=== PATIENT | female | born 1945 | race Caucasian/White ===

== ENCOUNTER → 2016-06-17 | Outpatient (CLI) | payer OTHER ==
[~2016-06-17] MED LIST: ACET-1256 PO; ASPI-435 PEG; CALC1TAB9 PO; CEFU1TAB36 PO; CHOL100010 PO; CIPR-255 PO; DEXTSYP41 PO; GLC/500 PO; HYDR25TA5 PO; LCTX PO; LISI40TA PO; LPR50X PO; LPT/40 PO; METF-384 PO; POTA10CA28 PO; POTA20TA16 PO; PRLSR20 PO; SALI0.6510 NAE; TOLT2CAP PO
== END | disposition home or self-care (01) ==
LOC: C.LABSPEC 11:00
PROVIDERS: ATTEND Urology
DX: N20.0 Calculus of kidney (principal); N39.0 Urinary tract infection, site not specified

== ENCOUNTER → 2016-06-18 | Outpatient (CLI) | payer OTHER ==
--- NOTE | 2016-06-18 10:28 | DIAGNOSTIC IMAGING REPORT ---
KUB CLINICAL HISTORY: Nephrolithiasis. COMPARISON STUDY: None. FINDINGS: There is a healed fracture of the right inferior pubic ramus. No ureteral calculi are identified. Pelvic calcifications likely reflect vascular calcifications and phleboliths. There are 2 adjacent calculi within the right kidney, the largest measures 1.7 cm. This could reflect one large calculus. No left renal calculi are identified. IMPRESSION: Right-sided nephrolithiasis, as described above. No ureteral calculi. Electronically signed by: Abundio Olivo M.D. 06/18/2016 10:27 AM Dictated Date/Time: 06/18/2016 10:24 AM
== END | disposition home or self-care (01) ==
LOC: C.RAD1850 09:56
PROVIDERS: ATTEND Urology
DX: N20.0 Calculus of kidney (principal); N39.0 Urinary tract infection, site not specified

== ENCOUNTER → 2016-06-30 | Outpatient (CLI) | payer OTHER | END | disposition home or self-care (01) | LOC: C.LABSPEC 11:13 | PROVIDERS: ATTEND Urology | DX: N39.0 Urinary tract infection, site not specified (principal) ==

== ENCOUNTER 2016-09-23 19:11 | Inpatient (IN) | payer OTHER ==
[~2016-09-23] VITALS: Ht 160 cm; Wt 83.0 kg
[~2016-09-23 19:11] MED LIST changes: -ACET-1256 PO; -CALC1TAB9 PO; -CEFU1TAB36 PO; -CIPR-255 PO; -LCTX PO; -METF-384 PO; -POTA20TA16 PO
[2016-09-23] MEDS ORDERED: SODIUM CHLORIDE 0.9% 1000ML 1,000 ML IV STA (19:26)
[2016-09-23] MEDS ORDERED: ONDANSETRON INJ 2 MG/ML 2 ML VIAL IV STA (19:26)
[2016-09-23] MEDS ORDERED: MoRPHine SULFATE 4 MG/ML 1 ML CARP\\VIAL IV PRN (19:30)
--- NOTE | 2016-09-23 19:35 | EMERGENCY ROOM VISIT NOTE ---
History Report prepared by Alexy: Rohit Granados Under the Supervision of: José Luis TaylorO. First contact with patient: 19:23 Chief Complaint: ABDOMINAL PAIN Stated Complaint: VOMITTING, PAIN IN RIGHT SIDE History of Present Illness The patient is a 71 year old female who presents to the Emergency Room with complaints of persistent right-sided abdominal pain that started around 1100 this morning. Per the patient's son, the patient started getting symptoms after eating breakfast at the [employer]. The patient has been having episodes of vomiting and diarrhea, in addition to the sharp right-sided abdominal pain. She says that she has had 3 episodes of diarrhea. The patient is scheduled to have surgery for kidney stones soon at [facility], and she is not sure if her current symptoms are related to the kidney stones. The patient denies any urinary symptoms, chest pain, or shortness of breath. She notes that she has never had abdominal pain like this during her kidney stones episodes. She has not taken anything for the pain today. The patient has a history of a cholecystectomy, appendectomy, and hysterectomy. She does have a history of cancer. The patient takes Aspirin daily. She is a non-smoker and she does not drink alcohol. The patient is diabetic and her sugars have been fine recently. She says that she tried to take Emetrol but vomited it immediately. Source of History: patient, family Onset: 1100 this morning Position: abdomen (right sided) Quality: sharp Timing: other (persistent) Associated Symptoms: + nausea, + vomiting, + diarrhea, No chest pain, No SOB , No urinary symptoms Note: No other associated symptoms noted. Review of Systems See HPI for pertinent positives & negatives. A total of 10 systems reviewed and were otherwise negative. Past Medical & Surgical Medical Problems: (1) Esophageal Reflux (2) Hyperlipidemia Nec/Nos (3) Hypertension Nos (4) Osteoporosis Nos Family History Cancer Heart disease Hypertension Social History Smoking Status: Never Smoker Marital Status: single Housing Status: lives with family Occupation Status: retired Current/Historical Medications Scheduled Acetaminophen (Tylenol), 500 MG PO DAILY Aspirin (Aspirin 81), 81 MG PEG DAILY Atorvastatin (Lipitor), 40 MG PO DAILY Calcium Citrate-Vitamin D (Citracal + D3 Maximum), 1 TAB PO DAILY Hydrochlorothiazide (Hydrochlorothiazide), 25 MG PO DAILY Lisinopril (Prinivil), 40 MG PO DAILY Metformin Hcl (Glucophage), 1,000 MG PO BID Metoprolol Tartrate (Metoprolol Tartrate), 50 MG PO BID Omeprazole (Prilosec), 20 MG PO BID Potassium Ext Rel (Klor-Con), 20 MEQ PO BID Allergies Coded Allergies: Cortisone (Verified Allergy, Intermediate, HEART PALPITATIONS & RASH, 06/25) Corticosteroids (Verified Allergy, Unknown, 06/25/14) Sulfa Drugs (Verified Allergy, Unknown, 06/25/14) Physical Exam Vital Signs Date Time Temp Pulse Resp B/P (MAP) Pulse Ox O2 Delivery O2 Flow Rate FiO2 09/23/16 21:39 36.8 69 17 168/81 95 Room Air 09/23/16 21:09 93 09/23/16 20:53 80 13 154/85 97 Room Air 09/23/16 19:15 36.7 61 24 153/74 94 Room Air Physical Exam GENERAL: Patient is awake, alert, very anxious and uncomfortable appearing. EYES: The conjunctivae are clear. The pupils are round and reactive. EARS, NOSE, MOUTH AND THROAT: The nose is without any evidence of any deformity. Mucous membranes are dry tongue is midline NECK: The neck is nontender and supple. RESPIRATORY: Normal respiratory effort is noted there is no evidence of wheezing rhonchi or rales CARDIOVASCULAR: Regular rate and rhythm noted there no murmurs rubs or gallops normal S1 normal S2 GASTROINTESTINAL: The abdomen moderately distended with right upper quadrant tenderness to palpation with mild guarding in the right upper quadrant. BACK: Significant right CVA tenderness to percussion, no midline tenderness, range of motion appeared intact. MUSCULOSKELETAL/EXTREMITIES: There is no evidence of gross deformity full range of motion is noted in the hips and shoulders SKIN: There is no obvious evidence of any rash. There are no petechiae, pallor or cyanosis noted. NEUROLOGIC: Patient is awake alert and oriented x3. Medical Decision & Procedures ER Provider Diagnostic Interpretation: Radiology results as stated below per my review and radiologist interpretation: CHEST ONE VIEW PORTABLE CLINICAL HISTORY: ABDOMINAL PAIN/GI pain COMPARISON STUDY: 05/25/2016 FINDINGS: The bones soft tissues and hemidiaphragms are normal. The cardiomediastinal silhouette is normal. The lungs are clear. The pulmonary vasculature is normal. IMPRESSION: Negative chest. Electronically signed by: Julián Hyman M.D. 09/23/2016 8:42 PM Dictated Date/Time: 09/23/2016 8:42 PM ABDOMEN AND PELVIS CT WITHOUT CONTRAST CT DOSE: 756.77 mGy.cm HISTORY: Flank pain right flank pain TECHNIQUE: Multiaxial CT images of the abdomen and pelvis were performed without contrast. COMPARISON STUDY: None. FINDINGS: Minimal basilar dependent atelectasis. Bilateral breast implants showing capsular scarring and contraction. Liver spleen and pancreas are unremarkable. Left kidney is negative for hydronephrosis. There is a 1.5 mm nonobstructing calcification at its mid pole. Right kidney shows evidence for hydronephrosis. There are multiple nonobstructing renal calcifications. There is an obstructing calculus measuring 4 mm at the right ureteral pelvic junction. Moderate infiltrative change of the right renal perinephric fat is present. Bowel pattern overall is considered nonobstructive. The appendix appears unremarkable. Bladder is midline. There are no contained calcifications. IMPRESSION: 1. 4 mm obstructing calculus right ureteropelvic junction. 2. significant right-sided hydronephrosis with multiple additional nonobstructing right renal calcifications. 3. Moderate infiltrative change of the right renal perinephric fat. 4. Study otherwise is negative. Electronically signed by: Julián Hyman M.D. 09/23/2016 8:39 PM Dictated Date/Time: 09/23/2016 8:37 PM Laboratory Results Test 09/23/16 19:35 Immature Granulocyte % (Auto) 0.2 % White Blood Count 12.33 K/uL (4.8-10.8) Red Blood Count 5.31 M/uL (4.2-5.4) Hemoglobin 15.1 g/dL (12.0-16.0) Hematocrit 44.8 % (37-47) Mean Corpuscular Volume 84.4 fL (80-100) Mean Corpuscular Hemoglobin 28.4 pg (25-34) Mean Corpuscular Hemoglobin Concent 33.7 g/dl (32-36) Platelet Count 216 K/uL (130-400) Mean Platelet Volume 9.9 fL (7.4-10.4) Neutrophils (%) (Auto) 86.2 % Lymphocytes (%) (Auto) 8.4 % Monocytes (%) (Auto) 4.9 % Eosinophils (%) (Auto) 0.1 % Basophils (%) (Auto) 0.2 % Neutrophils # (Auto) 10.61 K/uL (1.4-6.5) Lymphocytes # (Auto) 1.04 K/uL (1.2-3.4) Monocytes # (Auto) 0.61 K/uL (0.11-0.59) Eosinophils # (Auto) 0.01 K/uL (0-0.5) Basophils # (Auto) 0.03 K/uL (0-0.2) Immature Granulocyte # (Auto) 0.03 K/uL (0.00-0.02) Prothrombin Time 10.8 SECONDS (9.0-12.0) Prothromb Time International Ratio 1.0 (0.9-1.1) Activated Partial Thromboplast Time 24.2 SECONDS (21.0-31.0) Partial Thromboplastin Ratio 0.9 Total Bilirubin 1.0 mg/dl (0.2-1) Direct Bilirubin 0.2 mg/dl (0-0.2) Aspartate Amino Transf (AST/SGOT) 19 U/L (15-37) Alanine Aminotransferase (ALT/SGPT) 23 U/L (12-78) Alkaline Phosphatase 105 U/L (45-117) Total Creatine Kinase 52 U/L (26-192) Creatine Kinase MB 0.9 ng/ml (0.5-3.6) Creatine Kinase MB Ratio 1.7 (0-3.0) Troponin I < 0.015 ng/ml (0-0.045) Total Protein 7.6 gm/dl (6.4-8.2) Albumin 3.9 gm/dl (3.4-5.0) Amylase Level 49 U/L (25-115) Lipase 132 U/L (73-393) Laboratory results per my review. Medications Administered Medications (Trade) Dose Ordered Sig/Mandy Route Start Time Stop Time Status Last Admin Dose Admin Sodium Chloride 1,000 ml @ 999 mls/hr Q1H1M STAT IV 09/23/16 19:26 09/23/16 20:26 DC 09/23/16 20:07 999 MLS/HR Ondansetron HCl (Zofran Inj) 4 mg NOW STAT IV 09/23/16 19:26 09/23/16 19:27 DC 09/23/16 20:07 4 MG Ondansetron HCl (Zofran Inj) 4 mg STK-MED ONCE .ROUTE 09/23/16 21:32 09/23/16 21:33 DC 09/23/16 21:32 4 MG Ondansetron HCl (Zofran Inj) 4 mg Q6H PRN IV 09/23/16 22:15 10/23/16 22:14 09/24/16 04:50 4 MG Sodium Chloride 1,000 ml @ 125 mls/hr Q8H IV 09/23/16 22:15 10/23/16 22:14 09/24/16 13:47 125 MLS/HR ED Course 1924: The patient was evaluated in room C2B. A complete history and physical examination were performed. 1925: Ordered Zofran Inj 4 mg IV, NSS 1000 ml @ 999 mls/hr IV. 1929: Ordered Morphine Sulfate Inj 4 mg IV PRN. 2042: I reevaluated the patient and she is resting comfortable. The patient verbally expressed understanding and agreement with the treatment plan. The patient will be evaluated for further treatment. 2046: I discussed the patient with Dr. Niraj Mondragon store clerk. He will evaluate the patient for further treatment. Medical Decision Prior records/ancillary studies reviewed. Triage Nursing notes reviewed. Differential diagnosis: Etiologies such as appendicitis, diverticulitis, PUD, biliary pathology, UTI, pancreatitis, obstruction, mesenteric ischemia, aortic pathology, infections, inflammatory bowel disease, renal colic, as well as others were entertained. Medication Reconciliation: I attest that I have personally reviewed the patient' s current medications list. Patient was found to have a slightly elevated blood pressure due to circumstances. I do not believe that the patient requires hypertension monitoring. The patient is a 71-year-old female who presented to the emergency department for an evaluation of severe right flank pain and nausea vomiting. The patient is a history of kidney stones on the right side and has plans to have them surgically dealt with in the near future. The patient states that she had an acute onset of right-sided pain. Her history and physical exam appear to be consistent with renal colic. She was treated with IV fluids and IV antiemetics in the emergency department. On subsequent reevaluation she was feeling much better. She refused any IV pain medication. The patient's CT did show a significant hydronephrosis with a proximal ureteral kidney stone. I discussed the patient's laboratory and radiographic studies with her. Because of the degree of symptoms in the hydronephrosis also discussed her case [facility] They've agreed to evaluate the patient in the emergency apartment for further management and disposition. Consults Time Called: 2043 Consulting Physician: Dr. Niraj Mondragon store clerk Returned Call: [phone] I discussed the patient with Dr. Niraj Mondragon store clerk. He will evaluate the patient for further treatment. Impression Primary Impression: Hydronephrosis, right Additional Impressions: Kidney stone on right side Nausea & vomiting Scribe Attestation The scribe's documentation has been prepared under my direction and personally reviewed by me in its entirety. I confirm that the note above accurately reflects all work, treatment, procedures, and medical decision making performed by me. Departure Information Dispostion Being Evaluated By Hospitalist Referrals Gordo Clark MD (PCP) Patient Instructions My [facility] Problem Qualifiers Additional Impressions: Nausea & vomiting Vomiting type: unspecified Vomiting Intractability: non-intractable Qualified Codes: R11.2 - Nausea with vomiting, unspecified
[2016-09-23 19:47] LABS: BASO % 0.2 %; BASO ABS # 0.03 K/uL (0-0.2); COMPLETE YES; EOS % 0.1 %; HEMATOCRIT 44.8 % (37-47); IG% 0.2 %; LYMPH % 8.4 %; LYMPH ABS # 1.04 K/uL (1.2-3.4); MEAN CELL VOLUME 84.4 fL (80-100); MEAN CORPUSCULAR HEMOGLOBIN 28.4 pg (25-34); MEAN CORPUSCULAR HGB CONC 33.7 g/dl (32-36); MEAN PLATELET VOLUME 9.9 fL (7.4-10.4); MONO % 4.9 %; NEUT % 86.2 %; PLATELET COUNT 216 K/uL (130-400); RED BLOOD COUNT 5.31 M/uL (4.2-5.4); WHITE BLOOD COUNT 12.33 K/uL (4.8-10.8)
[2016-09-23 20:00] LABS: ALT/SGPT 23 U/L (12-78); AMYLASE 49 U/L (25-115); AST/SGOT 19 U/L (15-37); BLOOD UREA NITROGEN 17 mg/dl (7-18); BUN/CREATININE RATIO 19.9 (10-20); CARBON DIOXIDE 26 mmol/L (21-32); CHLORIDE 103 mmol/L (98-107); CREATININE 0.87 mg/dl (0.60-1.20); GLUCOSE 166 mg/dl (70-99); POTASSIUM 3.6 mmol/L (3.5-5.1); SODIUM 142 mmol/L (136-145)
[2016-09-23 20:01] LABS: PARTIAL THROMBOPLASTIN RATIO 0.9; PROTHROMBIN TIME (PATIENT) 10.8 SECONDS (9.0-12.0)
[2016-09-23 20:06] LABS: ALKALINE PHOSPHATASE 105 U/L (45-117); CKMB/CK RATIO 1.7 (0-3.0)
[2016-09-23] MEDS ORDERED: METF-384 PO (20:12)
[2016-09-23] MEDS ORDERED: CALC1TAB9 PO (20:12)
[2016-09-23] MEDS ORDERED: ACET-1256 PO (20:12)
--- NOTE | 2016-09-23 20:41 | DIAGNOSTIC IMAGING REPORT ---
ABDOMEN AND PELVIS CT WITHOUT CONTRAST CT DOSE: 756.77 mGy.cm HISTORY: Flank pain right flank pain TECHNIQUE: Multiaxial CT images of the abdomen and pelvis were performed without contrast. COMPARISON STUDY: None. FINDINGS: Minimal basilar dependent atelectasis. Bilateral breast implants showing capsular scarring and contraction. Liver spleen and pancreas are unremarkable. Left kidney is negative for hydronephrosis. There is a 1.5 mm nonobstructing calcification at its mid pole. Right kidney shows evidence for hydronephrosis. There are multiple nonobstructing renal calcifications. There is an obstructing calculus measuring 4 mm at the right ureteral pelvic junction. Moderate infiltrative change of the right renal perinephric fat is present. Bowel pattern overall is considered nonobstructive. The appendix appears unremarkable. Bladder is midline. There are no contained calcifications. IMPRESSION: 1. 4 mm obstructing calculus right ureteropelvic junction. 2. significant right-sided hydronephrosis with multiple additional nonobstructing right renal calcifications. 3. Moderate infiltrative change of the right renal perinephric fat. 4. Study otherwise is negative. Electronically signed by: Julián Hyman M.D. 09/23/2016 8:39 PM Dictated Date/Time: 09/23/2016 8:37 PM
--- NOTE | 2016-09-23 20:44 | DIAGNOSTIC IMAGING REPORT ---
CHEST ONE VIEW PORTABLE CLINICAL HISTORY: ABDOMINAL PAIN/GI pain COMPARISON STUDY: 05/25/2016 FINDINGS: The bones soft tissues and hemidiaphragms are normal. The cardiomediastinal silhouette is normal. The lungs are clear. The pulmonary vasculature is normal. IMPRESSION: Negative chest. Electronically signed by: Julián Hyman M.D. 09/23/2016 8:42 PM Dictated Date/Time: 09/23/2016 8:42 PM
[2016-09-23] MEDS ORDERED: POTA20TA16 PO (21:06)
[2016-09-23] MEDS ORDERED: ONDANSETRON INJ 2 MG/ML 2 ML VIAL ONE (21:32)
[2016-09-23] MEDS ORDERED: ONDANSETRON INJ 2 MG/ML 2 ML VIAL IV PRN (22:15)
[2016-09-23] MEDS ORDERED: MAGNESIUM HYDROXIDE SUSP 30 ML UDC PO PRN (22:15)
[2016-09-23] MEDS ORDERED: MoRPHine SULFATE 2 MG/ML CARP IV PRN (22:15)
[2016-09-23] MEDS ORDERED: ACETAMINOPHEN 325 MG TAB PO PRN (22:15)
[2016-09-23] MEDS ORDERED: ALUMINUM/MAGNESIUM/SIMETH (MAALOX MAX) 30 ML UDC PO PRN (22:15)
[2016-09-23] MEDS ORDERED: POLYETHYLENE (MIRALAX) 17 GM PACK PO PRN (22:45)
--- NOTE | 2016-09-23 22:56 | History and Physical ---
History & Physical Date & Time of Service: Sep 23, 2016 at 22:41 Chief Complaint: Vomitting, Pain In Right Side Primary Care Physician: Gordo Clark MD History of Present Illness Source: patient, family, clinic records, hospital records This is a 71 year old female with a PMH of HTN, DM2, HLD presents with R flank tenderness, nausea/vomiting, fevers/chills. She states that she has seen four urologists regarding her kidney stones, including Dr. Vital, [facility] , Dr. Matthew, and urology specialist in [place]. She was told her options but has not made a decision regarding how to proceed with her kidney stones. At that time, she had a R 1.7cm kidney stone. She presented here and had an Abdominal CT showing a 4mm obstructing stone at the UV junction. CT also suggests R hydronephrosis. Patient states the pain has resolved. Nausea persists. She has been insisting on being transferred to [place]. Family History Cancer Heart disease Hypertension Social History Smoking Status: Never Smoker Marital Status: single Occupational Status: retired Immunizations History of Influenza Vaccine: No Influenza Vaccine Date: Jul 02, 2010 History of Tetanus Vaccine?: Yes Tetanus Immunization Date: Jun 28, 2007 History of Pneumococcal: Yes Pneumococcal Date: Jul 02, 2010 History of Hepatitis B Vaccine: No Multi-Drug Resistant Organisms History of MDRO: No Allergies Coded Allergies: Cortisone (Verified Allergy, Intermediate, HEART PALPITATIONS & RASH, 06/25) Corticosteroids (Verified Allergy, Unknown, 06/25/14) Sulfa Drugs (Verified Allergy, Unknown, 06/25/14) Home Medications Scheduled Acetaminophen (Tylenol), 500 MG PO DAILY Aspirin (Aspirin 81), 81 MG PEG DAILY Atorvastatin (Lipitor), 40 MG PO DAILY Calcium Citrate-Vitamin D (Citracal + D3 Maximum), 1 TAB PO DAILY Hydrochlorothiazide (Hydrochlorothiazide), 25 MG PO DAILY Lisinopril (Prinivil), 40 MG PO DAILY Metformin Hcl (Glucophage), 1,000 MG PO BID Metoprolol Tartrate (Metoprolol Tartrate), 50 MG PO BID Omeprazole (Prilosec), 20 MG PO BID Potassium Ext Rel (Klor-Con), 20 MEQ PO BID Review of Systems Constitutional: + fever, + chills Respiratory: No cough, No sputum, No shortness of breath Cardiovascular: No chest pain, No edema, No palpitations Abdomen: + pain (R flank), + nausea, + vomiting, No diarrhea, No constipation, No GI bleeding Musculoskeletal: No joint pain, No muscle pain Genitourinary - Female: + hematuria, No dysuria, No urinary frequency, No urinary urgency, No urinary incontinence, No urinary retention Neurologic: No weakness, No numbness/tingling, No vertigo, No balance problems Psychiatric: No depression symptoms Hematologic / Lymphatic: No abnormal bleeding/bruising Integumentary: No rash, No itch Allergic / Immunologic: No environmental allergies, No seasonal allergies Physical Exam Vital Signs Date Time Temp Pulse Resp B/P (MAP) Pulse Ox O2 Delivery O2 Flow Rate FiO2 09/23/16 21:39 36.8 69 17 168/81 95 Room Air 09/23/16 21:09 93 09/23/16 20:53 80 13 154/85 97 Room Air 09/23/16 19:15 36.7 61 24 153/74 94 Room Air General Appearance: + mild distress (secondary to pain/nausea) Head: normocephalic, atraumatic Eyes: normal inspection ENT: hearing grossly normal Neck: supple Respiratory/Chest: lungs clear, normal breath sounds, no respiratory distress, no accessory muscle use Cardiovascular: regular rate, rhythm, no edema, no murmur Abdomen/GI: normal bowel sounds, non tender, soft Back: + right CVA tenderness Extremities/Musculoskelatal: normal inspection, no calf tenderness, normal capillary refill, no pedal edema, normal range of motion Neurologic/Psych: no motor/sensory deficits, alert, normal mood/affect Skin: normal color Lymphatic: no adenopathy Diagnostics Laboratory Results Results Past 24 Hours Test 09/23/16 19:35 Range/Units White Blood Count 12.33 4.8-10.8 K/uL Red Blood Count 5.31 4.2-5.4 M/uL Hemoglobin 15.1 12.0-16.0 g/dL Hematocrit 44.8 37-47 % Mean Corpuscular Volume 84.4 80-100 fL Mean Corpuscular Hemoglobin 28.4 25-34 pg Mean Corpuscular Hemoglobin Concent 33.7 32-36 g/dl Platelet Count 216 130-400 K/uL Mean Platelet Volume 9.9 7.4-10.4 fL Neutrophils (%) (Auto) 86.2 % Lymphocytes (%) (Auto) 8.4 % Monocytes (%) (Auto) 4.9 % Eosinophils (%) (Auto) 0.1 % Basophils (%) (Auto) 0.2 % Neutrophils # (Auto) 10.61 1.4-6.5 K/uL Lymphocytes # (Auto) 1.04 1.2-3.4 K/uL Monocytes # (Auto) 0.61 0.11-0.59 K/uL Eosinophils # (Auto) 0.01 0-0.5 K/uL Basophils # (Auto) 0.03 0-0.2 K/uL RDW Standard Deviation 38.6 36.4-46.3 fL RDW Coefficient of Variation 12.7 11.5-14.5 % Immature Granulocyte % (Auto) 0.2 % Immature Granulocyte # (Auto) 0.03 0.00-0.02 K/uL Prothrombin Time 10.8 9.0-12.0 SECONDS Prothromb Time International Ratio 1.0 0.9-1.1 Activated Partial Thromboplast Time 24.2 21.0-31.0 SECONDS Partial Thromboplastin Ratio 0.9 Sodium Level 142 136-145 mmol/L Potassium Level 3.6 3.5-5.1 mmol/L Chloride Level 103 98-107 mmol/L Carbon Dioxide Level 26 21-32 mmol/L Anion Gap 13.0 3-11 mmol/L Blood Urea Nitrogen 17 7-18 mg/dl Creatinine 0.87 0.60-1.20 mg/dl Est Creatinine Clear Calc Drug Dose 59.6 ml/min Estimated GFR () 77.1 Estimated GFR (Non- 66.6 BUN/Creatinine Ratio 19.9 10-20 Random Glucose 166 70-99 mg/dl Calcium Level 10.0 8.5-10.1 mg/dl Total Bilirubin 1.0 0.2-1 mg/dl Direct Bilirubin 0.2 0-0.2 mg/dl Aspartate Amino Transf (AST/SGOT) 19 15-37 U/L Alanine Aminotransferase (ALT/SGPT) 23 12-78 U/L Alkaline Phosphatase 105 45-117 U/L Total Creatine Kinase 52 26-192 U/L Creatine Kinase MB 0.9 0.5-3.6 ng/ml Creatine Kinase MB Ratio 1.7 0-3.0 Troponin I < 0.015 0-0.045 ng/ml Total Protein 7.6 6.4-8.2 gm/dl Albumin 3.9 3.4-5.0 gm/dl Amylase Level 49 25-115 U/L Lipase 132 73-393 U/L Diagnostic Radiology ABDOMEN AND PELVIS CT WITHOUT CONTRAST CT DOSE: 756.77 mGy.cm HISTORY: Flank pain right flank pain TECHNIQUE: Multiaxial CT images of the abdomen and pelvis were performed without contrast. COMPARISON STUDY: None. FINDINGS: Minimal basilar dependent atelectasis. Bilateral breast implants showing capsular scarring and contraction. Liver spleen and pancreas are unremarkable. Left kidney is negative for hydronephrosis. There is a 1.5 mm nonobstructing calcification at its mid pole. Right kidney shows evidence for hydronephrosis. There are multiple nonobstructing renal calcifications. There is an obstructing calculus measuring 4 mm at the right ureteral pelvic junction. Moderate infiltrative change of the right renal perinephric fat is present. Bowel pattern overall is considered nonobstructive. The appendix appears unremarkable. Bladder is midline. There are no contained calcifications. IMPRESSION: 1. 4 mm obstructing calculus right ureteropelvic junction. 2. significant right-sided hydronephrosis with multiple additional nonobstructing right renal calcifications. 3. Moderate infiltrative change of the right renal perinephric fat. 4. Study otherwise is negative. CHEST ONE VIEW PORTABLE CLINICAL HISTORY: ABDOMINAL PAIN/GI pain COMPARISON STUDY: 05/25/2016 FINDINGS: The bones soft tissues and hemidiaphragms are normal. The cardiomediastinal silhouette is normal. The lungs are clear. The pulmonary vasculature is normal. IMPRESSION: Negative chest. CXR normal Impression Assessment and Plan This is a 71 year old female with a PMH of HTN, DM2, HLD presents with R flank tenderness, nausea/vomiting, fevers/chills. R obstructive hydronephrosis Abdominal CT R 4mm obstructing UVJ R hydronephrosis Has followed with multiple urologists; recommendation made for stents and lithotripsy, but she refused in the past has seen [facility] as well as [place] [facility] she wants to be transferred to [place]; spoke with Dr. Yost, urologist lifestyle consultant , who states that she should have her pain controlled and then have stent put in will admit here, she is agreeable to that for now IVFs, morphine PRN, Zofran PRN check urinalysis and urine culture urology consultation for further input HTN cont. metoprolol hold Lisinopril and HCTZ for now HLD continue statin DM2 hold oral agents check BSGs add sliding scale if sugars are elevated DVT ppx SCDs FULL CODE VTE Prophylaxis VTE Risk Assessment Done? Y/N: Yes Risk Level: Low
[2016-09-24] VITALS (9 sets, daily range): BP systolic 98–151; BP diastolic 61–83; PULSE 58–82; TEMP 36.2–36.9; O2SAT 92–97; Ht 160 cm; Wt 83.0 kg
[2016-09-24] MEDS: SODIUM CHLORIDE 0.9% 1000ML 1,000 ML IV SCH ×4 (00:27→22:13)
[2016-09-24 01:03] LABS: URINE APPEARANCE CLOUDY (CLEAR); URINE BILIRUBIN NEG (NEG); URINE COLOR YELLOW; URINE EPITHELIAL CELL AUTO >30 /lpf (0-5); URINE NITRITE NEG (NEG); UROBILINOGEN NEG (NEG)
[2016-09-24 01:04] LABS: MANUAL MICROSCOPIC REQUIRED? NO; REVIEW REQ? YES
[2016-09-24] MEDS ORDERED: CIPROFLOXACIN / D5W 400 MG IV SCH (06:00)
[2016-09-24] MEDS ORDERED: KETOROLAC TROMETHAMINE 15 MG/ML VIAL IV. STA (06:03)
[2016-09-24] MEDS ORDERED: PROMETHAZINE HCL INJ 12.5 MG in SODIUM CHLORIDE 0.9% 50ML 50 ML IV STA (06:03)
[2016-09-24 07:20] LABS: HEMATOCRIT 39.8 % (37-47); MEAN CORPUSCULAR HEMOGLOBIN 28.4 pg (25-34); MEAN CORPUSCULAR HGB CONC 33.4 g/dl (32-36); MEAN PLATELET VOLUME 9.8 fL (7.4-10.4); PLATELET COUNT 175 K/uL (130-400); RED BLOOD COUNT 4.68 M/uL (4.2-5.4); WHITE BLOOD COUNT 12.76 K/uL (4.8-10.8)
[2016-09-24 07:59] LABS: BUN/CREATININE RATIO 15.8 (10-20); CALCIUM 8.9 mg/dl (8.5-10.1); CREATININE 0.89 mg/dl (0.60-1.20); POTASSIUM 2.9 mmol/L (3.5-5.1)
--- NOTE | 2016-09-24 10:02 | Progress Note ---
Subjective Date of Service: Sep 24, 2016. (Elizabeth Yuan CRNP) Subjective Pt evaluation today including: conversation w/ patient, physical exam, chart review, lab review, review of studies Voiding: no voiding problems 71 year old female admitted with hydronephrosis and right ureteral stone. She has been aware of her stones for some time. Has been evaluated by 4 urologists- Dr. Matthew, Dr. Vital, and urology in [place] and [place]. She has been unable to decide how to treat. Present to ER with right flank pain, n/v and reported fever and chills. She is currently afebrile and vitals are stable. CT scan shows 4 mm right UVJ stone with hydro and moderate infiltrative changes , right perinephric fat stranding. Urine culture is pending. White count 12.76 Creatinine normal 0.8 Urine culture pending. Currently her pain is controlled but still has c/o nausea. (Elizabeth Yuan CRNP) Problem List Last 24 Hours Test 09/23/16 19:35 09/23/16 22:30 09/24/16 06:56 09/24/16 08:05 White Blood Count 12.33 K/uL 12.76 K/uL Red Blood Count 5.31 M/uL 4.68 M/uL Hemoglobin 15.1 g/dL 13.3 g/dL Hematocrit 44.8 % 39.8 % Mean Corpuscular Volume 84.4 fL 85.0 fL Mean Corpuscular Hemoglobin 28.4 pg 28.4 pg Mean Corpuscular Hemoglobin Concent 33.7 g/dl 33.4 g/dl Platelet Count 216 K/uL 175 K/uL Mean Platelet Volume 9.9 fL 9.8 fL Neutrophils (%) (Auto) 86.2 % Lymphocytes (%) (Auto) 8.4 % Monocytes (%) (Auto) 4.9 % Eosinophils (%) (Auto) 0.1 % Basophils (%) (Auto) 0.2 % Neutrophils # (Auto) 10.61 K/uL Lymphocytes # (Auto) 1.04 K/uL Monocytes # (Auto) 0.61 K/uL Eosinophils # (Auto) 0.01 K/uL Basophils # (Auto) 0.03 K/uL RDW Standard Deviation 38.6 fL 39.4 fL RDW Coefficient of Variation 12.7 % 12.8 % Immature Granulocyte % (Auto) 0.2 % Immature Granulocyte # (Auto) 0.03 K/uL Prothrombin Time 10.8 SECONDS Prothromb Time International Ratio 1.0 Activated Partial Thromboplast Time 24.2 SECONDS Partial Thromboplastin Ratio 0.9 Sodium Level 142 mmol/L 145 mmol/L Potassium Level 3.6 mmol/L 2.9 mmol/L Chloride Level 103 mmol/L 106 mmol/L Carbon Dioxide Level 26 mmol/L 28 mmol/L Anion Gap 13.0 mmol/L 11.0 mmol/L Blood Urea Nitrogen 17 mg/dl 14 mg/dl Creatinine 0.87 mg/dl 0.89 mg/dl Est Creatinine Clear Calc Drug Dose 59.6 ml/min 58.3 ml/min Estimated GFR () 77.1 75.0 Estimated GFR (Non- 66.6 64.7 BUN/Creatinine Ratio 19.9 15.8 Random Glucose 166 mg/dl 137 mg/dl Calcium Level 10.0 mg/dl 8.9 mg/dl Total Bilirubin 1.0 mg/dl Direct Bilirubin 0.2 mg/dl Aspartate Amino Transf (AST/SGOT) 19 U/L Alanine Aminotransferase (ALT/SGPT) 23 U/L Alkaline Phosphatase 105 U/L Total Creatine Kinase 52 U/L Creatine Kinase MB 0.9 ng/ml Creatine Kinase MB Ratio 1.7 Troponin I < 0.015 ng/ml Total Protein 7.6 gm/dl Albumin 3.9 gm/dl Amylase Level 49 U/L Lipase 132 U/L Urine Color YELLOW Urine Appearance CLOUDY Urine pH 5.0 Urine Specific [place] 1.020 Urine Protein NEG Urine Glucose (UA) NEG Urine Ketones 1+ Urine Occult Blood 3+ Urine Nitrite NEG Urine Bilirubin NEG Urine Urobilinogen NEG Urine Leukocyte Esterase MODERATE Urine WBC (Auto) 10-30 /hpf Urine RBC (Auto) 10-30 /hpf Urine Hyaline Casts (Auto) 1-5 /lpf Urine Epithelial Cells (Auto) >30 /lpf Urine Bacteria (Auto) NEG Hepatitis C Antibody Screen NEG Bedside Glucose 127 mg/dl Current Inpatient Medications Medications (Trade) Dose Ordered Sig/Mandy Route Start Time Stop Time Status Last Admin Dose Admin Acetaminophen (Tylenol Tab) 650 mg Q4H PRN PO 09/23/16 22:15 10/23/16 22:14 Al Hydrox/Mg Hydrox/Simethicone (Maalox Max Susp) 15 ml Q4H PRN PO 09/23/16 22:15 10/23/16 22:14 Magnesium Hydroxide (Milk Of Magnesia Susp) 30 ml Q6H PRN PO 09/23/16 22:15 10/23/16 22:14 Polyethylene (Miralax Powder Packet) 17 gm DAILY PRN PO 09/23/16 22:45 10/23/16 22:44 Ondansetron HCl (Zofran Inj) 4 mg Q6H PRN IV 09/23/16 22:15 10/23/16 22:14 09/24/16 04:50 4 MG Acetaminophen (Tylenol Tab) 500 mg DAILY PO 09/24/16 09:00 10/24/16 08:59 Aspirin (Ecotrin Tab) 81 mg DAILY PO 09/24/16 09:00 10/24/16 08:59 Atorvastatin Calcium (Lipitor Tab) 40 mg DAILY PO 09/24/16 09:00 10/24/16 08:59 Metoprolol Tartrate (Lopressor Tab) 50 mg BID PO 09/24/16 09:00 10/24/16 08:59 Potassium Chloride (Klor-Con Tab) 20 meq BID17 PO 09/24/16 09:00 10/24/16 08:59 Calcium/Vitamin D (Caltrate Plus Tab) 1 tab DAILY PO 09/24/16 09:00 10/24/16 08:59 Pantoprazole Sodium (Protonix Tab) 40 mg BID PO 09/24/16 09:00 10/24/16 08:59 Sodium Chloride 1,000 ml @ 125 mls/hr Q8H IV 09/23/16 22:15 10/23/16 22:14 09/24/16 05:56 125 MLS/HR Morphine Sulfate (MoRPHine SULFATE INJ) 2 mg Q4 PRN IV 09/23/16 22:15 10/07/16 22:14 Medical Problems: (1) Hydronephrosis, right Status: Acute (2) Kidney stone on right side Status: Acute (3) Nausea & vomiting Status: Acute (Elizabeth Yuan, CEFERINO) Review of Systems Constitutional: + chills, No fever Respiratory: No cough, No shortness of breath Cardiac: No chest pain Abdomen: + see HPI, + nausea, + vomiting Female : + hematuria, No dysuria, No urinary frequency Neurologic: No memory loss Psychiatric: No depression symptoms Heme: No abnormal bleeding/bruising Skin: No rash (Elizabeth Yuan CRNP) Objective Vital Signs Date Time Temp Pulse Resp B/P (MAP) Pulse Ox O2 Delivery O2 Flow Rate FiO2 09/24/16 08:17 Room Air 09/24/16 07:03 36.9 82 18 98/61 (73) 92 Room Air 09/24/16 00:22 Room Air 09/24/16 00:22 Room Air 09/24/16 00:20 36.8 63 16 151/76 (101) 96 Room Air 09/23/16 23:05 76 18 127/78 96 Nasal Cannula 2.0 09/23/16 23:00 96 Nasal Cannula 2.0 09/23/16 21:39 36.8 69 17 168/81 95 Room Air 09/23/16 21:09 93 09/23/16 20:53 80 13 154/85 97 Room Air 09/23/16 19:15 36.7 61 24 153/74 94 Room Air (Elizabeth Yuan CRNP) Physical Exam General Appearance: WD/WN, no apparent distress ENT: hearing grossly normal Neck: supple, no JVD Respiratory/Chest: lungs clear, normal breath sounds, no respiratory distress, no accessory muscle use Cardiovascular: regular rate, rhythm, no edema, no gallop, no JVD Abdomen: soft Extremities: normal range of motion, non-tender, normal inspection, no pedal edema, no calf tenderness Neurologic/Psychiatric: alert, normal mood/affect, oriented x 3 Skin: normal color, warm/dry, no rash (Elizabeth Yuan CRNP) Laboratory Results Last 24 Hours Test 09/23/16 19:35 09/23/16 22:30 09/24/16 06:56 09/24/16 08:05 White Blood Count 12.33 K/uL 12.76 K/uL Red Blood Count 5.31 M/uL 4.68 M/uL Hemoglobin 15.1 g/dL 13.3 g/dL Hematocrit 44.8 % 39.8 % Mean Corpuscular Volume 84.4 fL 85.0 fL Mean Corpuscular Hemoglobin 28.4 pg 28.4 pg Mean Corpuscular Hemoglobin Concent 33.7 g/dl 33.4 g/dl Platelet Count 216 K/uL 175 K/uL Mean Platelet Volume 9.9 fL 9.8 fL Neutrophils (%) (Auto) 86.2 % Lymphocytes (%) (Auto) 8.4 % Monocytes (%) (Auto) 4.9 % Eosinophils (%) (Auto) 0.1 % Basophils (%) (Auto) 0.2 % Neutrophils # (Auto) 10.61 K/uL Lymphocytes # (Auto) 1.04 K/uL Monocytes # (Auto) 0.61 K/uL Eosinophils # (Auto) 0.01 K/uL Basophils # (Auto) 0.03 K/uL RDW Standard Deviation 38.6 fL 39.4 fL RDW Coefficient of Variation 12.7 % 12.8 % Immature Granulocyte % (Auto) 0.2 % Immature Granulocyte # (Auto) 0.03 K/uL Prothrombin Time 10.8 SECONDS Prothromb Time International Ratio 1.0 Activated Partial Thromboplast Time 24.2 SECONDS Partial Thromboplastin Ratio 0.9 Sodium Level 142 mmol/L 145 mmol/L Potassium Level 3.6 mmol/L 2.9 mmol/L Chloride Level 103 mmol/L 106 mmol/L Carbon Dioxide Level 26 mmol/L 28 mmol/L Anion Gap 13.0 mmol/L 11.0 mmol/L Blood Urea Nitrogen 17 mg/dl 14 mg/dl Creatinine 0.87 mg/dl 0.89 mg/dl Est Creatinine Clear Calc Drug Dose 59.6 ml/min 58.3 ml/min Estimated GFR () 77.1 75.0 Estimated GFR (Non- 66.6 64.7 BUN/Creatinine Ratio 19.9 15.8 Random Glucose 166 mg/dl 137 mg/dl Calcium Level 10.0 mg/dl 8.9 mg/dl Total Bilirubin 1.0 mg/dl Direct Bilirubin 0.2 mg/dl Aspartate Amino Transf (AST/SGOT) 19 U/L Alanine Aminotransferase (ALT/SGPT) 23 U/L Alkaline Phosphatase 105 U/L Total Creatine Kinase 52 U/L Creatine Kinase MB 0.9 ng/ml Creatine Kinase MB Ratio 1.7 Troponin I < 0.015 ng/ml Total Protein 7.6 gm/dl Albumin 3.9 gm/dl Amylase Level 49 U/L Lipase 132 U/L Urine Color YELLOW Urine Appearance CLOUDY Urine pH 5.0 Urine Specific [place] 1.020 Urine Protein NEG Urine Glucose (UA) NEG Urine Ketones 1+ Urine Occult Blood 3+ Urine Nitrite NEG Urine Bilirubin NEG Urine Urobilinogen NEG Urine Leukocyte Esterase MODERATE Urine WBC (Auto) 10-30 /hpf Urine RBC (Auto) 10-30 /hpf Urine Hyaline Casts (Auto) 1-5 /lpf Urine Epithelial Cells (Auto) >30 /lpf Urine Bacteria (Auto) NEG Hepatitis C Antibody Screen NEG Bedside Glucose 127 mg/dl (Elizabeth Yuan CRNP) Assessment and Plan Right ureteral stone Right obstructing UPJ stone w/ sign of infection. Discussed options of observation vs surgical intervention of cystoscopy w/ right ureteral stent placement. She is agreeable to stent placement. Case discussed with Dr. Matthew. OR notified of add on. Consents signed and placed on chart. She remains NPO. CXR and EKG were completed in ER. Cipro 400 mg IV preop. Thanks for the consult. (Elizabeth Yuan CRNP) Discussed w pt and daughter and plan csto stent as pt has pyuria and had chills last night All questions answered (Yoseph Matthew M.D.)
[2016-09-24] MEDS ORDERED: CIPROFLOXACIN 400MG / 200ML D5W IV ONE (10:15)
[2016-09-24] MEDS ORDERED: POTASSIUM CHLORIDE 20 MEQ TABCR PO STA (10:30)
[2016-09-24] MEDS ORDERED: CONRAY 30% 150ML BOTTLE ONE (10:45)
[2016-09-24] MEDS ORDERED: LIDOCAINE HCL 2% 2 ML VIAL (20MG/ML) ONE (11:02)
[2016-09-24] MEDS ORDERED: PROPOFOL IV EMULSION 10 MG/ML 20 ML VIAL IV ONE (11:02)
[2016-09-24] MEDS ORDERED: FENTANYL CITRATE INJ 50 MCG/1 ML 2 ML VIAL ONE (11:03)
[2016-09-24] MEDS ORDERED: MIDAZOLAM HCL 1 MG/ML 2ML VIAL ONE (11:03)
--- NOTE | 2016-09-24 12:11 | [facility] Post Operative Brief Note ---
Immediate Operative Summary Operative Date Sep 24, 2016. Pre-Operative Diagnosis right upj stone with infection Post-Operative Diagnosis same Procedure(s) Performed cysto ,right retrograde, right stent Surgeon thanh Blower Blast Furnace Surgeon(s) none Estimated Blood Loss 0 Findings upj stone with purulent drainage after the wire was passed Specimens none Anesthesia sedation
--- NOTE | 2016-09-24 12:14 | DIAGNOSTIC IMAGING REPORT ---
FLUOROSCOPIC IMAGES FROM RIGHT RETROGRADE EXAM CLINICAL HISTORY: Cystoscopy with stent placement. COMPARISON STUDY: CT of the abdomen and pelvis September 23, 2016. Fluoroscopy time: 27 seconds. FINDINGS: 2 fluoroscopic images demonstrate cannulation of the right ureter with placement of a right ureteral stent. Right hydronephrosis is noted. Proximal aspect of the stent is within the renal pelvis. IMPRESSION: Fluoroscopic images from right retrograde exam with ureteral stent insertion. Electronically signed by: Abundio Olivo M.D. 09/24/2016 12:13 PM Dictated Date/Time: 09/24/2016 12:10 PM
--- NOTE | 2016-09-24 12:41 | Anesthesiology Progress Note ---
Anesthesia Post Op Note Date & Time Sep 24, 2016 at 12:42 Vital Signs Pain Intensity: 0 Vital Signs Past 12 Hours Date Time Temp Pulse Resp B/P (MAP) Pulse Ox O2 Delivery O2 Flow Rate FiO2 09/24/16 12:25 36.6 55 16 105/62 100 Nasal Cannula 3 09/24/16 12:10 36.6 60 16 108/65 100 Nasal Cannula 3 09/24/16 12:00 36.6 83 16 112/60 95 Nasal Cannula 3 09/24/16 08:17 Room Air 09/24/16 07:03 36.9 82 18 98/61 (73) 92 Room Air Notes Mental Status: alert / awake / arousable, participated in evaluation Pt Amnestic to Procedure: Yes Nausea / Vomiting: adequately controlled Pain: adequately controlled Airway Patency, RR, SpO2: stable & adequate BP & HR: stable & adequate Hydration State: stable & adequate Anesthetic Complications: no major complications apparent
[2016-09-24] MEDS: METOPROLOL TARTRATE 50 MG TAB PO SCH ×2 (13:45→21:16)
[2016-09-24] MEDS: PANTOprazole SOD 40 MG TAB PO SCH ×2 (13:45→21:17)
[2016-09-24] MEDS: ASPIRIN 81 MG ECTAB PO SCH (13:46)
[2016-09-24] MEDS: CALCIUM 600MG + VIT D 400 IU TAB PO SCH (13:46)
[2016-09-24] MEDS: ATORVASTATIN 40 MG TAB PO SCH (13:46)
[2016-09-24] MEDS: ACETAMINOPHEN 500 MG TAB PO SCH (13:46)
[2016-09-24] MEDS: POTASSIUM CHLORIDE 20 MEQ TABCR PO SCH ×2 (13:47→17:24)
--- NOTE | 2016-09-24 14:47 | OPERATIVE REPORT ---
DATE OF OPERATION: 09/23/2016 PROCEDURE PERFORMED: Cystoscopy, right retrograde and right stent placement. INDICATIONS: The patient is a 71-year-old female with known right renal stones who had been scheduled at [place] for potential right percutaneous nephrostomy when one of the stones apparently started to pass. She presented to the hospital yesterday with flank pain and chills. She had pyuria and we were consulted. She has not had a fever here but did have somewhat of an elevated white blood cell count and her urine appeared infected. Because of this, I advised stent placement. DESCRIPTION OF THE PROCEDURE: The patient was taken to the cysto suite where she was placed in the dorsal lithotomy position with Venodyne stockings. She has been given antibiotics and urine culture is pending. She was placed in the dorsal lithotomy position, prepped and draped in the usual sterile fashion and sedation was given. A 22-Sing[place]an cystoscope was passed per urethra, a 5-Sing[place]an open-ended catheter was inserted into the right ureteral orifice and retrograde was performed which showed obstruction just below the UPJ with hydronephrosis beyond this. A dual flex guidewire was passed through the open ended catheter into the renal pelvis and after this was done, the 5-Singaporean open-ended catheter was removed coaxially leaving the wire in place. After this was done, you could see purulent appearing fluid pouring out of the right orifice. Next, after a bit of time was passed to allow some of the purulent fluid to pass through to relieve the obstruction, a 5-Singaporean 24 cm stent was passed over the wire under fluoroscopy with a good curl in the renal pelvis and a curl in the bladder under visualization. The wire had been removed leaving the stent in place. The patient was then transferred to the recovery room in stable condition. I attest to the content of the Intraoperative Record and any orders documented therein. Any exception s are noted below.
--- NOTE | 2016-09-24 17:46 | Progress Note ---
Internal Med Progress Note Date of Service: Sep 24, 2016. Provider Documentation: SUBJECTIVE: resting comfortably afebrile has chills s/p ureteral stent placement no pain OBJECTIVE: Vital Signs-as noted below Exam: General-alert and awake. Not in distress ENT-Normal hearing Neck-no neck masses, supple Lungs-cta b/l no wheezing or crackles Heart-s1 and s2 heard regular , no murmurs Abdomen-soft bowel sounds present non tender no distension Extremities- no edema present no erythema Neuro-alert and awake moves extremities Lab data as noted below. ASSESSMENT & PLAN: This is a 71 year old female with a PMH of HTN, DM2, HLD presents with R flank tenderness, nausea/vomiting, fevers/chills. R obstructive hydronephrosis Abdominal CT R 4mm obstructing UVJ R hydronephrosis s/p stent placement empiric Rocephin until cx available appreciate urology help. HTN on metoprolol hold Lisinopril and HCTZ for now will monitor HLD on statin DM2 holding oral agents check BSGs add sliding scale if sugars are elevated DVT ppx SCDs FULL CODE DISPOSITION to be determined Vital Signs: Date Time Temp Pulse Resp B/P (MAP) Pulse Ox O2 Delivery O2 Flow Rate FiO2 09/24/16 15:03 36.7 66 18 122/83 (96) 96 Nasal Cannula 3.0 09/24/16 14:14 36.2 66 17 130/79 (96) 96 Nasal Cannula 2.0 09/24/16 12:57 36.7 58 17 114/71 (85) 97 Nasal Cannula 2.0 09/24/16 12:35 97 Nasal Cannula 2.0 09/24/16 12:35 36.8 58 18 100/64 (76) 97 Nasal Cannula 2.0 09/24/16 12:25 36.6 55 16 105/62 100 Nasal Cannula 3 09/24/16 12:10 36.6 60 16 108/65 100 Nasal Cannula 3 09/24/16 12:00 36.6 83 16 112/60 95 Nasal Cannula 3 09/24/16 08:17 Room Air 09/24/16 07:03 36.9 82 18 98/61 (73) 92 Room Air 09/24/16 00:22 Room Air 09/24/16 00:22 Room Air 09/24/16 00:20 36.8 63 16 151/76 (101) 96 Room Air 09/23/16 23:05 76 18 127/78 96 Nasal Cannula 2.0 09/23/16 23:00 96 Nasal Cannula 2.0 09/23/16 21:39 36.8 69 17 168/81 95 Room Air 09/23/16 21:09 93 09/23/16 20:53 80 13 154/85 97 Room Air 09/23/16 19:15 36.7 61 24 153/74 94 Room Air Lab Results: Results Past 24 Hours Test 09/23/16 19:35 09/23/16 22:30 09/24/16 06:56 09/24/16 08:05 Range/Units White Blood Count 12.33 12.76 4.8-10.8 K/uL Red Blood Count 5.31 4.68 4.2-5.4 M/uL Hemoglobin 15.1 13.3 12.0-16.0 g/dL Hematocrit 44.8 39.8 37-47 % Mean Corpuscular Volume 84.4 85.0 80-100 fL Mean Corpuscular Hemoglobin 28.4 28.4 25-34 pg Mean Corpuscular Hemoglobin Concent 33.7 33.4 32-36 g/dl Platelet Count 216 175 130-400 K/uL Mean Platelet Volume 9.9 9.8 7.4-10.4 fL Neutrophils (%) (Auto) 86.2 % Lymphocytes (%) (Auto) 8.4 % Monocytes (%) (Auto) 4.9 % Eosinophils (%) (Auto) 0.1 % Basophils (%) (Auto) 0.2 % Neutrophils # (Auto) 10.61 1.4-6.5 K/uL Lymphocytes # (Auto) 1.04 1.2-3.4 K/uL Monocytes # (Auto) 0.61 0.11-0.59 K/uL Eosinophils # (Auto) 0.01 0-0.5 K/uL Basophils # (Auto) 0.03 0-0.2 K/uL RDW Standard Deviation 38.6 39.4 36.4-46.3 fL RDW Coefficient of Variation 12.7 12.8 11.5-14.5 % Immature Granulocyte % (Auto) 0.2 % Immature Granulocyte # (Auto) 0.03 0.00-0.02 K/uL Prothrombin Time 10.8 9.0-12.0 SECONDS Prothromb Time International Ratio 1.0 0.9-1.1 Activated Partial Thromboplast Time 24.2 21.0-31.0 SECONDS Partial Thromboplastin Ratio 0.9 Sodium Level 142 145 136-145 mmol/L Potassium Level 3.6 2.9 3.5-5.1 mmol/L Chloride Level 103 106 98-107 mmol/L Carbon Dioxide Level 26 28 21-32 mmol/L Anion Gap 13.0 11.0 3-11 mmol/L Blood Urea Nitrogen 17 14 7-18 mg/dl Creatinine 0.87 0.89 0.60-1.20 mg/dl Est Creatinine Clear Calc Drug Dose 59.6 58.3 ml/min Estimated GFR () 77.1 75.0 Estimated GFR (Non- 66.6 64.7 BUN/Creatinine Ratio 19.9 15.8 10-20 Random Glucose 166 137 70-99 mg/dl Calcium Level 10.0 8.9 8.5-10.1 mg/dl Total Bilirubin 1.0 0.2-1 mg/dl Direct Bilirubin 0.2 0-0.2 mg/dl Aspartate Amino Transf (AST/SGOT) 19 15-37 U/L Alanine Aminotransferase (ALT/SGPT) 23 12-78 U/L Alkaline Phosphatase 105 45-117 U/L Total Creatine Kinase 52 26-192 U/L Creatine Kinase MB 0.9 0.5-3.6 ng/ml Creatine Kinase MB Ratio 1.7 0-3.0 Troponin I < 0.015 0-0.045 ng/ml Total Protein 7.6 6.4-8.2 gm/dl Albumin 3.9 3.4-5.0 gm/dl Amylase Level 49 25-115 U/L Lipase 132 73-393 U/L Urine Color YELLOW Urine Appearance CLOUDY CLEAR Urine pH 5.0 4.5-7.5 Urine Specific [place] 1.020 1.000-1.030 Urine Protein NEG NEG Urine Glucose (UA) NEG NEG Urine Ketones 1+ NEG Urine Occult Blood 3+ NEG Urine Nitrite NEG NEG Urine Bilirubin NEG NEG Urine Urobilinogen NEG NEG Urine Leukocyte Esterase MODERATE NEG Urine WBC (Auto) 10-30 0-5 /hpf Urine RBC (Auto) 10-30 0-4 /hpf Urine Hyaline Casts (Auto) 1-5 0-5 /lpf Urine Epithelial Cells (Auto) >30 0-5 /lpf Urine Bacteria (Auto) NEG NEG Hepatitis C Antibody Screen NEG NEG Bedside Glucose 127 70-90 mg/dl Test 09/24/16 12:13 09/24/16 16:45 Range/Units Bedside Glucose 139 119 70-90 mg/dl Microbiology Results 09/23/16 Urine Culture, Received Pending
[2016-09-24] MEDS ORDERED: GLUCOSE 10 TABS/TUBE PO PRN (18:00)
[2016-09-24] MEDS ORDERED: GLUCOSE 40% GEL 15 GM TUBE PO PRN (18:00)
[2016-09-24] MEDS ORDERED: GLUCAGON FOR INJ 1 MG VIAL SQ PRN (18:00)
[2016-09-24] MEDS ORDERED: DEXTROSE 50% 50 ML SYR IV PRN (18:00)
[2016-09-24] MEDS ORDERED: CEFTRIAXONE SOD INJ 1 GM in DEXTROSE 5% ADD-VANTAGE 50ML 50 ML IV SCH (18:00)
[2016-09-24] MEDS: INSULIN ASPART 100 UNITS/ML 3 ML PEN SC SCH (21:00)
[2016-09-25 03:22] VITALS: BP 134/77; PULSE 58; TEMP 36.7; O2SAT 95
[2016-09-25] MEDS: SODIUM CHLORIDE 0.9% 1000ML 1,000 ML IV SCH (05:46)
--- NOTE | 2016-09-25 06:27 | Progress Note ---
Subjective Date of Service: Sep 25, 2016. Subjective Pt evaluation today including: physical exam, chart review, review of studies pt resting spoke with daughter yesterday and she is scheduled for perc nephrostomy at the end of October Problem List Medical Problems: (1) Hydronephrosis, right Status: Acute (2) Kidney stone on right side Status: Acute (3) Nausea & vomiting Status: Acute Objective Vital Signs Date Time Temp Pulse Resp B/P (MAP) Pulse Ox O2 Delivery O2 Flow Rate FiO2 09/25/16 03:22 36.7 58 16 134/77 (96) 95 Nasal Cannula 2.0 09/25/16 00:00 Nasal Cannula 3.0 09/24/16 23:01 36.7 61 14 125/80 (95) 95 Nasal Cannula 2.0 09/24/16 21:13 69 122/78 (93) 09/24/16 19:01 36.8 78 18 121/77 (92) 94 Room Air 09/24/16 17:00 Nasal Cannula 3.0 09/24/16 15:03 36.7 66 18 122/83 (96) 96 Nasal Cannula 3.0 09/24/16 14:14 36.2 66 17 130/79 (96) 96 Nasal Cannula 2.0 09/24/16 12:57 36.7 58 17 114/71 (85) 97 Nasal Cannula 2.0 09/24/16 12:35 97 Nasal Cannula 2.0 09/24/16 12:35 36.8 58 18 100/64 (76) 97 Nasal Cannula 2.0 09/24/16 12:25 36.6 55 16 105/62 100 Nasal Cannula 3 09/24/16 12:10 36.6 60 16 108/65 100 Nasal Cannula 3 09/24/16 12:00 36.6 83 16 112/60 95 Nasal Cannula 3 09/24/16 08:17 Room Air 09/24/16 07:03 36.9 82 18 98/61 (73) 92 Room Air Laboratory Results Last 24 Hours Test 09/24/16 06:56 09/24/16 08:05 09/24/16 12:13 09/24/16 16:45 White Blood Count 12.76 K/uL Red Blood Count 4.68 M/uL Hemoglobin 13.3 g/dL Hematocrit 39.8 % Mean Corpuscular Volume 85.0 fL Mean Corpuscular Hemoglobin 28.4 pg Mean Corpuscular Hemoglobin Concent 33.4 g/dl RDW Standard Deviation 39.4 fL RDW Coefficient of Variation 12.8 % Platelet Count 175 K/uL Mean Platelet Volume 9.8 fL Sodium Level 145 mmol/L Potassium Level 2.9 mmol/L Chloride Level 106 mmol/L Carbon Dioxide Level 28 mmol/L Anion Gap 11.0 mmol/L Blood Urea Nitrogen 14 mg/dl Creatinine 0.89 mg/dl Est Creatinine Clear Calc Drug Dose 58.3 ml/min Estimated GFR () 75.0 Estimated GFR (Non- 64.7 BUN/Creatinine Ratio 15.8 Random Glucose 137 mg/dl Calcium Level 8.9 mg/dl Hepatitis C Antibody Screen NEG Bedside Glucose 127 mg/dl 139 mg/dl 119 mg/dl Test 09/24/16 20:26 Bedside Glucose 132 mg/dl Assessment and Plan Pt ok for d/c from urology POV on oral antibiotic Would consider lithotripsy here if pt wants to try this now that the stent is in and if it is ok with [place] cont antibiotic pending culture result
[2016-09-25] MEDS ORDERED: CIPROFLOXACIN / D5W 400 MG IV SCH (06:52)
[2016-09-25 07:12] VITALS: BP 129/79; PULSE 61; TEMP 36.7; O2SAT 93
[2016-09-25] MEDS: INSULIN ASPART 100 UNITS/ML 3 ML PEN SC SCH ×2 (08:00→12:40)
[2016-09-25] MEDS: CALCIUM 600MG + VIT D 400 IU TAB PO SCH (08:58)
[2016-09-25] MEDS: ATORVASTATIN 40 MG TAB PO SCH (08:59)
[2016-09-25] MEDS: PANTOprazole SOD 40 MG TAB PO SCH (08:59)
[2016-09-25] MEDS: POTASSIUM CHLORIDE 20 MEQ TABCR PO SCH (08:59)
[2016-09-25] MEDS: ASPIRIN 81 MG ECTAB PO SCH (08:59)
[2016-09-25] MEDS: METOPROLOL TARTRATE 50 MG TAB PO SCH (09:00)
[2016-09-25] MEDS: ACETAMINOPHEN 500 MG TAB PO SCH (09:00)
--- NOTE | 2016-09-25 09:00 | DIAGNOSTIC IMAGING REPORT ---
[facility] CLINICAL HISTORY: Right ureteral stone. COMPARISON STUDY: CT of the abdomen and pelvis September 23, 2016 and right retrograde exam September 24, 2016. FINDINGS: A right ureteral stent appears appropriately positioned. Multiple right renal calculi are noted. These measure up to approximately 1 cm. The 6 mm right ureteropelvic junction shown on CT of September 23, 2016 is not visualized within the right ureter and could be within the right renal collecting system. Pelvic calcifications represent phleboliths. There is a punctate left renal calculus. IMPRESSION: Appropriately positioned right ureteral stent. No ureteral calculi identified. 6 mm right UPJ calculus shown on CT of September 23, 2016 may be within the right kidney. Electronically signed by: Abundio Olivo M.D. 09/25/2016 8:59 AM Dictated Date/Time: 09/25/2016 8:53 AM
[2016-09-25] MEDS ORDERED: CIPR-255 PO (13:31)
[2016-09-25] MEDS ORDERED: LCTX PO (13:31)
[2016-09-25] MEDS ORDERED: CEFU1TAB36 PO (13:32)
--- NOTE | 2016-09-25 13:34 | Discharge Instructions ---
Discharge Instructions Date of Service Sep 25, 2016. Admission Reason for Admission: Hydronephrosis, Right; Kidney Stone On Right Side Discharge Discharge Diagnosis / Problem: RT kidney stne. Pyelonephritis? Discharge Goals Goal(s): Decrease discomfort, Improve function Activity Recommendations Activity Limitations: resume your previous activity Lifting Limitations: no more than 5 pounds (until seen by urology) . Instructions / Follow-Up Instructions / Follow-Up FOLLOWUP WITH FAMILY DOCTOR ON September AT 11:05AM FOLLOWUP WITH UROLOGY IN 1-2 WEEKS Current Hospital Diet Patient's current hospital diet: Diabetes Type 2 Diet Discharge Diet Recommended Diet: Diabetes Type 2 Diet Procedures Procedures Performed: cysto ,right retrograde, right stent Pending Studies Studies pending at discharge: no Medical Emergencies . Who to Call and When: Medical Emergencies: If at any time you feel your situation is an emergency, please call 911 immediately. . Non-Emergent Contact Non-Emergency issues call your: Primary Care Provider . . "Provider Documentation" section prepared by Vel Franklin. . VTE Core Measure Inpt VTE Proph given/why not?: SCD's
[2016-09-25 14:05] VITALS: BP 129/79; PULSE 61; TEMP 36.7; O2SAT 93
--- NOTE | 2016-09-25 18:56 | Progress Note ---
Internal Med Progress Note Date of Service: Sep 25, 2016. Provider Documentation: SUBJECTIVE: resting comfortably no chills or fevers eating ok no nausea want to go home OBJECTIVE: Vital Signs-as noted below Exam: General-alert and awake. Not in distress ENT-Normal hearing Neck-no neck masses, supple Lungs-cta b/l no wheezing or crackles Heart-s1 and s2 heard regular , no murmurs Abdomen-soft bowel sounds present non tender no distension Extremities- no edema present no erythema Neuro-alert and awake moves extremities Lab data as noted below. ASSESSMENT & PLAN: This is a 71 year old female with a PMH of HTN, DM2, HLD presents with R flank tenderness, nausea/vomiting, fevers/chills. R obstructive hydronephrosis possible pyelonephritis Abdominal CT R 4mm obstructing UVJ R hydronephrosis s/p stent placement empiric Rocephin appreciate urology help. urine cx non specific d/tommy on cefuroxime HTN on metoprolol hold Lisinopril and HCTZ for now d/c on home meds HLD on statin DM2 holding oral agents check BSGs add sliding scale if sugars are elevated d/c on [place] meds discharged home Vital Signs: Date Time Temp Pulse Resp B/P (MAP) Pulse Ox O2 Delivery O2 Flow Rate FiO2 09/25/16 14:05 36.7 61 18 93 Room Air Nasal Cannula 09/25/16 07:12 36.7 61 18 129/79 (96) 93 Room Air 09/25/16 07:10 Room Air 09/25/16 03:22 36.7 58 16 134/77 (96) 95 Nasal Cannula 2.0 09/25/16 00:00 Nasal Cannula 3.0 09/24/16 23:01 36.7 61 14 125/80 (95) 95 Nasal Cannula 2.0 09/24/16 21:13 69 122/78 (93) 09/24/16 19:01 36.8 78 18 121/77 (92) 94 Room Air Lab Results: Results Past 24 Hours Test 09/24/16 20:26 09/25/16 08:05 09/25/16 12:00 Range/Units Bedside Glucose 132 113 113 70-90 mg/dl
--- NOTE | 2016-09-25 19:13 | Discharge Summary ---
Discharge Summary Date of Service Sep 25, 2016. Discharge Summary Admission Date: Sep 23, 2016 at 22:16 Discharge Date: Sep 25, 2016 Discharge Disposition: Home Principal Diagnosis: R obstructive hydronephrosis possible pyelonephritis RENAL STONE Secondary Diagnoses/Problems: HTN, DM2, HLD Procedures: CT ABD/PELVIS: 1. 4 mm obstructing calculus right ureteropelvic junction. 2. significant right-sided hydronephrosis with multiple additional nonobstructing right renal calcifications. 3. Moderate infiltrative change of the right renal perinephric fat. 4. Study otherwise is negative. KUB: Appropriately positioned right ureteral stent. No ureteral calculi identified. 6 mm right UPJ calculus shown on CT of September 23, 2016 may be within the right kidney. Consultations: UROLOGY Medication Reconciliation New Medications: Cefuroxime Axetil (Cefuroxime Axetil) 500 Mg Tab 1 TAB PO BID for 10 Days, #20 TAB Lactobacillus Acidophilus (Lactinex) Tab 2 TAB PO BID for 10 Days, TAB Continued Medications: Acetaminophen (Tylenol) 500 Mg Tab 500 MG PO DAILY, TAB Aspirin (Aspirin 81) 81 Mg Tab 81 MG PEG DAILY Atorvastatin (Lipitor) 40 Mg Tab 40 MG PO DAILY, TAB Calcium Citrate-Vitamin D (Citracal + D3 Maximum) 1 Tab Tab 1 TAB PO DAILY Hydrochlorothiazide (Hydrochlorothiazide) 25 Mg Tab 25 MG PO DAILY Lisinopril (Prinivil) 40 Mg Tab 40 MG PO DAILY, TAB Metformin Hcl (Glucophage) 1,000 Mg Tab 1000 MG PO BID, TAB Metoprolol Tartrate (Metoprolol Tartrate) 50 Mg Tab 50 MG PO BID Omeprazole (Prilosec) 20 Mg Capcr 20 MG PO BID, CAP Potassium Ext Rel (Klor-Con) 20 Meq Tabcr 20 MEQ PO BID, TAB Admission Information HPI (per Admitting provider): This is a 71 year old female with a PMH of HTN, DM2, HLD presents with R flank tenderness, nausea/vomiting, fevers/chills. She states that she has seen four urologists regarding her kidney stones, including Dr. Vital, [facility] , Dr. Matthew, and urology specialist in [place]. She was told her options but has not made a decision regarding how to proceed with her kidney stones. At that time, she had a R 1.7cm kidney stone. She presented here and had an Abdominal CT showing a 4mm obstructing stone at the UV junction. CT also suggests R hydronephrosis. Patient states the pain has resolved. Nausea persists. She has been insisting on being transferred to [place]. Physical Exam (per Admitting): General Appearance: + mild distress (secondary to pain/nausea) Head: normocephalic, atraumatic Eyes: normal inspection ENT: hearing grossly normal Neck: supple Respiratory/Chest: lungs clear, normal breath sounds, no respiratory distress, no accessory muscle use Cardiovascular: regular rate, rhythm, no edema, no murmur Abdomen/GI: normal bowel sounds, non tender, soft Back: + right CVA tenderness Extremities/Musculoskelatal: normal inspection, no calf tenderness, normal capillary refill, no pedal edema, normal range of motion Neurologic/Psych: no motor/sensory deficits, alert, normal mood/affect Skin: normal color Lymphatic: no adenopathy Hospital Course This is a 71 year old female with a PMH of HTN, DM2, HLD presents with R flank tenderness, nausea/vomiting, fevers/chills. R obstructive hydronephrosis possible pyelonephritis Abdominal CT R 4mm obstructing UVJ R hydronephrosis s/p stent placement empiric Rocephin appreciate urology help. urine cx non specific d/tommy on cefuroxime HTN on metoprolol hold Lisinopril and HCTZ for now d/c on home meds HLD on statin DM2 holding oral agents check BSGs add sliding scale if sugars are elevated d/c on [place] meds discharged home Total time spent on discharge = 35MINUTES This includes examination of the patient, discharge planning, medication reconciliation, and communication with other providers. Discharge Instructions Discharge Instructions Date of Service Sep 25, 2016. Admission Reason for Admission: Hydronephrosis, Right; Kidney Stone On Right Side Discharge Discharge Diagnosis / Problem: RT kidney stne. Pyelonephritis? Discharge Goals Goal(s): Decrease discomfort, Improve function Activity Recommendations Activity Limitations: resume your previous activity Lifting Limitations: no more than 5 pounds (until seen by urology) . Instructions / Follow-Up Instructions / Follow-Up FOLLOWUP WITH FAMILY DOCTOR ON September AT 11:05AM FOLLOWUP WITH UROLOGY IN 1-2 WEEKS Current Hospital Diet Patient's current hospital diet: Diabetes Type 2 Diet Discharge Diet Recommended Diet: Diabetes Type 2 Diet Procedures Procedures Performed: cysto ,right retrograde, right stent Pending Studies Studies pending at discharge: no Medical Emergencies . Who to Call and When: Medical Emergencies: If at any time you feel your situation is an emergency, please call 911 immediately. . Non-Emergent Contact Non-Emergency issues call your: Primary Care Provider . . "Provider Documentation" section prepared by Vel Franklin. . VTE Core Measure Inpt VTE Proph given/why not?: SCD's
== END 2016-09-25 15:00 | disposition home or self-care (01) | DRG 690 ==
LOC: C.EDB 19:13 → C.MSW 22:16 → EDBEDREQSVC 22:34 → ENRESERV 23:01
PROVIDERS: ADMIT Family Medicine; ATTEND Internal Medicine
PROC: 0T768DZ Dilation of Right Ureter with Intraluminal Device, Via Natural or Artificial Opening Endoscopic (ICD-10-PCS; principal; 2016-09-23)
DX: N13.6 Pyonephrosis (principal); I10 Essential (primary) hypertension; E11.9 Type 2 diabetes mellitus without complications; E78.5 Hyperlipidemia, unspecified; Z82.49 Family history of ischemic heart disease and other diseases of the circulatory system; Z79.82 Long term (current) use of aspirin

== ENCOUNTER → 2016-09-29 | Outpatient (CLI) | payer OTHER ==
[~2016-09-29] MED LIST changes: +ACET-1256 PO; +CALC1TAB9 PO; +CEFU1TAB36 PO; -CHOL100010 PO; -DEXTSYP41 PO; -GLC/500 PO; +LCTX PO; +METF-384 PO; -POTA10CA28 PO; +POTA20TA16 PO; -SALI0.6510 NAE; -TOLT2CAP PO
--- NOTE | 2016-09-29 16:40 | MAMMOGRAPHY REPORT ---
BILATERAL DIGITAL SCREENING MAMMOGRAM TOMOSYNTHESIS WITH CAD: 09/29/2016 CLINICAL HISTORY: Routine screening. Patient has no complaints. TECHNIQUE: Breast tomosynthesis in addition to standard 2D mammography was performed. Current study was also evaluated with a Computer Aided Detection (CAD) system. Tomosynthesis images were obtained of the implant displaced views only. COMPARISON: Comparison is made to exams dated: 03/20/2015 mammogram, 07/18/2013 mammogram, 03/10/2015 m ammogram, 02/02/2012 mammogram, 10/28/2010 mammogram, and 09/29/2009 mammogram - [facility]. BREAST COMPOSITION: There are scattered areas of fibroglandular density in both breasts. FINDINGS: No suspicious masses, calcifications, or areas of architectural distortion are noted in ei ther breast. There has been no significant interval change compared to prior exams. Bilateral prepec riana saline implants are stable in appearance. IMPRESSION: ACR BI-RADS CATEGORY 2: BENIGN There is no mammographic evidence of malignancy. A 1 year screening mammogram is recommended. The pa tient will receive written notification of the results. Approximately 10% of breast cancers are not detected with mammography. A negative mammographic report should not delay biopsy if a clinically suggestive mass is present. Tonya Steve M.D. ah/:09/29/2016 15:24:26 Financial Data Analyst: Nicole MILLER(Valerie)(M), [facility] letter sent: Normal 1/2 BI-RADS Code: ACR BI-RADS Category 2: Benign
== END | disposition home or self-care (01) ==
LOC: C.MAMM 14:26
PROVIDERS: ATTEND Internal Medicine
DX: Z12.31 Encounter for screening mammogram for malignant neoplasm of breast (principal); Z98.82 Breast implant status

== ENCOUNTER → 2017-11-28 | Outpatient (CLI) | payer OTHER ==
[~2017-11-28] MED LIST changes: -CEFU1TAB36 PO; -LCTX PO; +POTA-639 PO; -POTA20TA16 PO
[2017-11-28 10:25] LABS: ALBUMIN 3.8 gm/dl (3.4-5.0); BLOOD UREA NITROGEN 16 mg/dl (7-18); CALCIUM 9.9 mg/dl (8.5-10.1); CARBON DIOXIDE 28 mmol/L (21-32); CREATININE 0.63 mg/dl (0.60-1.20); GLUCOSE 133 mg/dl (70-99); PHOSPHORUS 3.1 mg/dl (2.5-4.9); POTASSIUM 3.8 mmol/L (3.5-5.1); SODIUM 140 mmol/L (136-145); URIC ACID 5.3 mg/dl (2.6-7.2)
== END | disposition home or self-care (01) ==
LOC: C.LAB1850 08:01
PROVIDERS: ATTEND Urology Female Pelvic Medicine and Reconstructive Surgery
DX: N20.0 Calculus of kidney (principal)

== ENCOUNTER 2021-08-26 08:08 | Observation (INO) ==
--- NOTE | 2021-08-26 08:48 | Emergency Department Note ---
ED Provider Note CHIEF COMPLAINT: Chest pain HISTORY OF PRESENT ILLNESS: This patient is a 76-year-old female who presents emergency department with complaints of substernal chest pain that has been off and on for 3 days. Patient states she works at [employer] and has had some increased stress while at work. She thought that this was likely related. She does have a complicated past medical history including "cancer 3 different times." She states she has had a history of ovarian cancer, uterine cancer and thyroid cancer. She is currently under the care of oncology at [facility]. She states she does take blood pressure medication and took it this morning. She had chest pain just several minutes ago but it has since resolved. It typically lasts only several seconds. She does not relate the pain necessarily to exertion. She states she did not miss any of her medications recently. She is diabetic. REVIEW OF SYSTEMS: A review of systems was performed with positives and pertinent negatives listed in the history of present illness. 10 systems were reviewed and are otherwise negative. ALLERGIES: see below MEDICATIONS: see below PMH: see below SOCIAL HISTORY: see below DDx: Cardiac ischemia, aortic dissection, pulmonary embolism, pneumothorax, pneumonia, pericarditis, myocarditis, esophageal rupture, GERD, cholecystitis, pancreatitis, musculoskeletal, as well as other pathologies. PHYSICAL EXAM: Vital signs reviewed. Noted to be markedly hypertensive, repeated at bedside. General: Well-appearing elderly 76-year-old female, in no significant distress. HEENT: No scleral icterus, PERRLA, neck supple. Atraumatic. Cardiovascular: Regular rate and rhythm, no extra sounds. Pulmonary: Clear to auscultation bilaterally, normal work of breathing. Abdomen: Soft, obese, nontender, nondistended, positive bowel sounds. Musculoskeletal: Atraumatic, no peripheral edema. Neurologic: Patient awake alert and oriented x 3, speech is clear Skin: Warm, dry, no rash EMERGENCY DEPARTMENT COURSE/MDM: [] MONITORING: An order for cardiac monitoring was placed and the patient is noted to be in a normal sinus rhythm at 81 beats per minute. RADIOLOGY: EKG: EKG reveals normal sinus rhythm at 83 bpm. Normal axis, normal ST segments. No PVC, no PAC. QTc of 411. DISPOSITION: Past Med/Surg History Medical History (Updated 08/26/21 @ 08:54 by Faith Bone MD) Ovarian cancer Thyroid cancer Uterine cancer Social History Smoking Status: Never smoker Preferred Language: Cameroonian Feels Safe at Home: Yes Allergies Allergies Allergy/AdvReac Type Severity Reaction Status Date / Time cortisone Allergy Intermediate HEART Verified 02/12/20 02:07 PALPITATIONS & RASH Corticosteroids Allergy Unknown Unknown Verified 02/12/20 02:07 (Glucocorticoids) Sulfa (Sulfonamide Allergy Unknown Unknown Verified 02/12/20 02:07 Antibiotics) Home Meds Home Medications Medication Instructions Recorded Confirmed aspirin 81 mg tablet,delayed 81 mg PO DAILY 02/12/20 02/12/20 release (Aspirin Low Dose) atorvastatin 20 mg tablet 20 mg PO DAILY 02/12/20 02/12/20 calcium citrate 315 mg-vitamin D3 1 tab PO DAILY 02/12/20 02/12/20 5 mcg (200 unit) tablet (Calcium Citrate + D) hydrochlorothiazide 25 mg tablet 25 mg PO DAILY 02/12/20 02/12/20 levothyroxine 125 mcg tablet 125 mcg PO DAILY 02/12/20 02/12/20 lisinopril 40 mg tablet 40 mg PO DAILY 02/12/20 02/12/20 metformin 1,000 mg tablet 500 mg PO BID 02/12/20 02/12/20 metoprolol tartrate 50 mg tablet 50 mg PO BID 02/12/20 02/12/20 omeprazole 20 mg capsule,delayed 20 mg PO DAILY 02/12/20 02/12/20 release potassium citrate 15 mEq (1,620 15 meq PO BID 02/12/20 02/12/20 mg) tablet,extended release Results & Data (ED) Vital Signs Vital Signs - 24 hr 08/26/21 08:11 Temperature 36.8 C Temperature Source Oral Pulse Rate 81 Respiratory Rate 16 Respiratory Effort / Characteristics Non-Labored Respiratory Depth Normal Respiratory Pattern Regular Blood Pressure 235/107 H Blood Pressure Mean 149 Pulse Oximetry 96 Oxygen Delivery Method Room Air Sepsis Recent Fever Within 48 Hours No Sepsis New/Unexplained Change in Mental Status No Sepsis Action Taken by Nursing No Action Required Laboratory Data Result diagrams: 08/26/21 08:25 08/26/21 08:25 Discharge Plan Visit Data Chief Complaint: Chest Pain Stated Complaint: CHEST PAIN ED Provider: Faith Bone Forms Stand Alone Forms: [facility] [place] Prescriptions Prescriptions: No Action atorvastatin 20 mg tablet 20 mg PO DAILY RF: 0 levothyroxine 125 mcg tablet 125 mcg PO DAILY RF: 0 hydrochlorothiazide 25 mg tablet 25 mg PO DAILY RF: 0 lisinopril 40 mg tablet 40 mg PO DAILY RF: 0 aspirin [Aspirin Low Dose] 81 mg Tablet,Delayed Release (Dr/Ec) 81 mg PO DAILY RF: 0 metformin 1,000 mg tablet 500 mg PO BID RF: 0 metoprolol tartrate 50 mg tablet 50 mg PO BID RF: 0 omeprazole 20 mg capsule,delayed release(DR/EC) 20 mg PO DAILY RF: 0 calcium citrate-vitamin D3 [Calcium Citrate + D] 315 mg-5 mcg (200 unit) Tablet 1 tab PO DAILY RF: 0 potassium citrate 15 mEq tablet extended release 15 meq PO BID RF: 0 Referrals Referrals: Gordo Clark MD [Primary Care Provider] -
[2021-08-26] MEDS ORDERED: hydrALAZINE HCL 20 MG/ML VIAL IV STA (08:49)
[2021-08-26] MEDS ORDERED: ASPIRIN CHEW 324 MG PO STA (08:52)
[2021-08-26 09:02] LABS: Basophils # (auto) 0.06 K/uL (0-0.2); Basophils % (auto) 0.9 %; Eosinophils # (auto) 0.14 K/uL (0-0.5); Hematocrit (blood only) 46.6 % (37-47); Hemoglobin 15.2 g/dL (12.0-16.0); Immature Granulocytes # (auto) 0.02 K/uL (0.00-0.02); Immature Granulocytes % (auto) 0.3 %; Lymphocytes # (auto) 2.12 K/uL (1.2-3.4); Lymphocytes % (auto) 30.4 %; Mean Corpuscular Hemoglobin 28.4 pg (25-34); Mean Corpuscular Hgb Conc 32.6 g/dL (32-36); Mean Corpuscular Volume 87.1 fL (80-100); Mean Platelet Volume 10.3 fL (7.4-10.4); Monocytes # (auto) 0.46 K/uL (0.11-0.59); Monocytes % (auto) 6.6 %; Neutrophils # (auto) 4.18 K/uL (1.4-6.5); Neutrophils % (auto) 59.8 %; Platelet Count 207 K/uL (130-400); RDW Coefficient of Variation 12.8 % (11.5-14.5); RDW Standard Deviation 40.7 fL (36.4-46.3); Red Blood Count 5.35 M/uL (4.2-5.4); White Blood Count 6.98 K/uL (4.8-10.8)
--- NOTE | 2021-08-26 09:10 | CT Scan Report ---
HEAD CT NONCONTRAST CT DOSE: 638.56 mGycm HISTORY: forgetful, hypertensive urgency TECHNIQUE: Multiaxial CT images of the head were performed without the use of intravenous contrast. A utomated exposure control was utilized for this study. A dose lowering technique was utilized adheri ng to the principles of ALARA. Comparison: Head CT 06/25/2014. Findings: The paranasal sinuses and mastoid air cells are clear. The calvarium and skull base are int act. There is no mass, hematoma, midline shift, acute infarct. White matter hypodensity is nonspecifi c but suggestive of microvascular ischemic change. The ventricles and sulci demonstrate mild age-rela lisa involutional changes. Impression: No acute intracranial abnormality. Atrophy and microvascular ischemic changes. ACT 112: Negative or not required by law. Electronically signed by: Tj Steve M.D. 08/26/2021 9:09 AM
[2021-08-26 09:24] LABS: INR 1.1 (0.9-1.1); Partial Thromboplastin Ratio 0.9; Partial Thromboplastin Time 25.9 Seconds (21.0-31.0); Prothrombin Time 11.2 Seconds (9.0-12.0)
[2021-08-26 09:30] LABS: Albumin Globulin Ratio 1.5 (0.9-2); Albumin Level 4.5 gm/dl (3.4-5.0); BUN Creatinine Ratio 16.7 (10-20); Bilirubin,Total 1.4 mg/dl (0.2-1.0); Calcium 9.1 mg/dl (8.5-10.1); Creatinine Clr Calc Pharmacy 92.1 ml/min; Est GFR (African American) 105.5 ml/min; Globulin 3.1 gm/dl (2.5-4.0); Potassium 3.6 mmol/L (3.5-5.1); Total Protein 7.6 gm/dl (6.0-8.3)
[2021-08-26 09:31] LABS: Troponin I High Sensitivity 3.7 pg/ml (0-14)
[2021-08-26 10:48] LABS: Appearance Urine Clear (Clear); Bacteria Urine Automated 2+ (Negative); Bilirubin Urine Negative (Negative); Blood Urine Negative (Negative); Cast Urine Automated 0 /lpf (0-5); Color Urine Yellow; Glucose Urine UA Negative (Negative); Ketones Urine Negative (Negative); Leukocyte Esterase Urine Trace (Negative); Nitrite Urine Positive (Negative); Protein Urine Negative (Negative); RBC Urine Automated 0-4 /hpf (0-4); Specific Gravity Urine 1.009 (1.000-1.030); Urobilinogen Urine Negative (Negative); pH Urine 7.5 (4.5-7.5)
--- NOTE | 2021-08-26 11:18 | History & Physical Report ---
Date of Service August 26, 2021 Assessment & Plan (1) Chest pain: (2) Hypertensive urgency: (3) T2DM (type 2 diabetes mellitus): (4) HLD (hyperlipidemia): (5) TESHA (obstructive sleep apnea): Plan: This is a 76-year-old female who has a significant past medical history of HTN, HLD, ascending aortic dilatation, TESHA noncompliant with CPAP, T2DM, hyperparathyroidism status post parathyroidectomy, history of papillary thyroid carcinoma, senile osteoporosis, vitamin D deficiency, MDD, renal angiomyolipoma who presents to ED secondary to chest pain x3 days. Chest Pain Hypertensive urgency CP present for 3 days off and on, initial trop x 2 negative, ecg w/o ischemic change CP is reproducible, presented with BP 235/107 improved with IV hydralazine she has been compliant with metoprolol, lisinopril and aldactone she is prescribed amlodipine, but has not been taking it will start amlodipine 5mg daily and x 1 now, encourage pt to take on daily basis, monitor BP and keep log for PCP. Goal BP < 140/90 pt also has TESHA and is currently undergoing testing with sleep medicine to re initiate cpap, she has been off for several months cycle trops, control BP NPO after midnight, will perform dobutamine stress test in a.m. last stress test 06/2020- negative for inducible ischemia Abnormal Urinalysis +nitrites, bacturia pt asymptomatic, afebrile, wbc wnl await urine culture urine culture in past in EP[facility] > 100k klebsiella T2DM a1c 05/2021 6.6 hold metformin novolog correction per protocol a1c in a.m. HLD continue statin lipid panel in a.m. TESHA not on cpap continue w/u as OP hx of papillary thyroid ca hx of hyperparathyroidism s/p total thyroidectomy and parathyroidectomy hx of uterina ca Renal Angiomyolipoma - follows nephro DVT ppx: Lovenox Dispo: PCU, overnight monitoring, BP control, stress test in a.m., likely d/c tomorrow FULL CODE PCP: Amber Pt was seen and examined in collaboration with Dr. Puentes, please see addendum History of Present Illness Chief Complaint: Chest Pain x3 days Primary Care Provider: Gordo Clark MD This is a 76-year-old female who has a significant past medical history of HTN, HLD, ascending aortic dilatation, TESHA noncompliant with CPAP, T2DM, hyperparathyroidism status post parathyroidectomy, history of papillary thyroid carcinoma, senile osteoporosis, vitamin D deficiency, MDD, renal angiomyolipoma who presents to ED secondary to chest pain x3 days. She states over the last 3 days she has noticed intermittent and off and on substernal chest pain that is been nonradiating. She describes it as a dull pressure and rated as a 4 out of 10. She states symptoms last seconds and then go away on its own. She admits to experiencing similar chest pain in the past, but has never sought out evaluation. She denies any associated diaphoresis, lightheadedness, shortness of breath, palpitations or nausea. She does intermittently experience dizziness with walking and describes it as a, "spinning sensation." She states that many years ago she was diagnosed with vertigo and it feels similar. She does have strong family history of CAD with her brother who had a CABG as well as fatal SC. Denies any smoking or alcohol use. She does not monitor her blood pressure at home on a regular basis. She does take lisinopril, metoprolol and Aldactone. She is also prescribed amlodipine, but states that she does not take this. She denies any recent illness, fever, chills, sweats, lightheadedness, syncope, cough, hemoptysis, chest pain with inspiration, nausea, vomiting, abdominal pain, dysuria, increased urgency or frequency with urination. She does have chronic urinary incontinence and wears a pad for this. She feels her urine color is darker lately and occasionally relates this to infection. In ED patient was severely hypertensive on arrival at 235/107. Her EKG was negative for any ischemic change and initial troponin was negative. Her lab work was unremarkable. Urinalysis concerning for possible infection however she is afebrile and WBC is WNL. She is also without symptoms. She has received IV hydralazine 10 mg in ED which improved pressure systolically to 130s. She still complains of off-and-on chest pain. She also admits to a significant amount of stress at work. She has worked at [employer] for 7 years. 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 She feels her manager clinic discriminates against hispanics. Allergies Allergy/AdvReac Type Severity Reaction Status Date / Time cortisone Allergy Intermediate HEART Verified 08/26/21 09:19 PALPITATIONS & RASH Corticosteroids Allergy Unknown Unknown Verified 08/26/21 09:19 (Glucocorticoids) Sulfa (Sulfonamide Allergy Unknown Unknown Verified 08/26/21 09:19 Antibiotics) Home Medications Medication Instructions Recorded Confirmed Type aspirin 81 mg tablet,delayed 81 mg PO HS 02/12/20 08/26/21 History release (Aspirin Low Dose) atorvastatin 20 mg tablet 20 mg PO QAM 02/12/20 08/26/21 History calcium citrate 315 mg-vitamin D3 1 tab PO QAM 02/12/20 08/26/21 History 5 mcg (200 unit) tablet (Calcium Citrate + D) levothyroxine 125 mcg tablet 125 mcg PO DAILYBB 02/12/20 08/26/21 History lisinopril 40 mg tablet 40 mg PO QAM 02/12/20 08/26/21 History metformin 1,000 mg tablet 500 mg PO BID 02/12/20 08/26/21 History omeprazole 20 mg capsule,delayed 20 mg PO DAILYBB 02/12/20 08/26/21 History release amlodipine 5 mg tablet 5 mg PO QAM 08/26/21 08/26/21 History cholecalciferol (vitamin D3) 25 3,000 unit PO DAILY 08/26/21 08/26/21 History mcg (1,000 unit) tablet metoprolol succinate 50 mg 50 mg PO DAILY 08/26/21 08/26/21 History tablet,extended release 24 hr mirabegron 25 mg tablet,extended 25 mg PO QAM 08/26/21 08/26/21 History release 24 hr (Myrbetriq) spironolactone 25 mg tablet 12.5 mg PO QAM 08/26/21 08/26/21 History Past Med/Surg History Medical History (Updated 08/26/21 @ 12:05 by Flower Lopez PA-C) Ascending aorta dilatation History of uterine cancer HLD (hyperlipidemia) HTN (hypertension) Hx of papillary thyroid carcinoma Hyperparathyroidism TESHA (obstructive sleep apnea) Renal angiomyolipoma Senile osteoporosis T2DM (type 2 diabetes mellitus) Vitamin D deficiency Surgical History (Updated 08/26/21 @ 12:01 by Flower Lopez PA-C) History of appendectomy History of cholecystectomy History of esophagogastroduodenoscopy (EGD) 2020 barretts, gastric polyps, gastritis, repeat 3 years History of hysterectomy History of parathyroidectomy History of sinus surgery History of thyroidectomy total 2019 History of ureter stent Family History (Updated 08/26/21 @ 12:01 by Flower Lopez PA-C) Brother Myocardial infarction Diabetes Coronary heart disease Father Diabetes Stroke Social History (Updated 08/26/21 @ 12:02 by Flower Lopez PA-C) Smoking Status: Never smoker Hx Alcohol Use: No Hx Substance Use: No Preferred Language: Haitian marital status: Current Living Situation: Alone current occupational status: employed current occupation: [employer] Feels Safe at Home: Yes Review of Systems Review of Systems: All systems reviewed & are unremarkable except as noted in HPI & below Physical Exam Physical Exam: Constitutional: WD/WN, vitals as above, NAD, sitting up in bed, pleasant, conversing easily Head: Normocephalic, Atraumatic Eyes: PERRL, conjunctivae normal, anicteric sclerae ENMT: external ear and nose normal, oropharynx normal Neck: trachea midline, no thyromegaly normal visual inspection Respiratory: normal respiratory effort, lungs clear to auscultation, no wheeze, rales, rhonchi. Normal insp/exp effort, no accessory muscle use Cardiovascular: RRR, no murmur, no edema Vessels: no JVD or carotid bruit Chest: normal inspection of chest , CP reproducible with palp to sternal area Abdomen: normal bowel sounds, soft, nontender, no hepatosplenomegaly Musculoskeletal: no cyanosis or clubbing, extremities motor strength 5/5 Skin: no rashes, warm and dry normal turgor Neurologic: PERRL, EOMI, accommodation nl, no face palsy, no dysarthria CN's II-XI intact bilaterally and moves all extremities Psychiatric: A+Ox3, euthymic affect Lymphatic: no cervical or axillary lymphadenopathy : deferred Results & Data Results & Data ([facility]) Vital Signs (Past 12 Hours) Vital Signs Temp Pulse Resp BP Pulse Ox 08/26/21 10:30 83 19 137/81 95 08/26/21 10:00 85 22 162/86 H 08/26/21 09:54 97 H 38 H 199/97 H 08/26/21 09:31 86 28 H 200/91 H 96 08/26/21 09:09 78 19 220/107 H 96 08/26/21 08:56 79 20 202/94 H 96 08/26/21 08:49 80 25 H 231/107 H 96 08/26/21 08:44 97 08/26/21 08:30 74 20 227/109 H 95 08/26/21 08:26 82 22 232/110 H 96 08/26/21 08:11 36.8 C 81 16 235/107 H [address] 08/26/21 08:[address] DOSE: 638.56 mGycm HISTORY: forgetful, hypertensive urgency TECHNIQUE: Multiaxial CT images of the head were performed without the use of intravenous contrast. Automated exposure control was utilized for this study. A dose lowering technique was utilized adhering to the principles of ALARA. Comparison: Head CT 06/25/2014. Findings: The paranasal sinuses and mastoid air cells are clear. The calvarium a nd skull base are intact. There is no mass, hematoma, midline shift, acute infarct. White matter hypodensity is nonspecific but suggestive of microvascular ischemic change. The ventricles and sulci demonstrate mild age-related involutional changes. Impression: No acute intracranial abnormality. Atrophy and microvascular ischemic changes. ACT 112: Negative or not required by law. Electronically signed by: Tj Steve M.D. 08/26/2021 9:09 AM Medications Administered Medication List Discontinued Medications Aspirin (Aspirin Chew 324 Mg) 243 mg PO NOW STA Stop: 08/26/21 08:53 Last Admin: 08/26/21 09:12 Dose: 324 mg Documented by: [id number] Hydralazine HCl (Hydralazine Hcl 20 Mg/Ml Vial) 10 mg IV NOW STA Stop: 08/26/21 08:50 Last Admin: 08/26/21 09:12 Dose: 10 mg Documented by: [id number] ECG Rate (beats per minute): 83 Rhythm: normal sinus COVID-19 Results Results COVID-19 Adm Lab Results: RBC 5.35 M/uL (4.2-5.4) 08/26/21 WBC 6.98 K/uL (4.8-10.8) 08/26/21 Hgb 15.2 g/dL (12.0-16.0) 08/26/21 Hct 46.6 % (37-47) 08/26/21 Plt Count 207 K/uL (130-400) 08/26/21 Neutrophils (%) (Auto) 59.8 % 08/26/21 Lymphocytes (%) (Auto) 30.4 % 08/26/21 Monocytes # (Auto) 0.46 K/uL (0.11-0.59) 08/26/21 Eosinophils # (Auto) 0.14 K/uL (0-0.5) 08/26/21 Immature Granulocyte % (Auto) 0.3 % 08/26/21 Neutrophils # (Auto) 4.18 K/uL (1.4-6.5) 08/26/21 Lymphocytes # (Auto) 2.12 K/uL (1.2-3.4) 08/26/21 Monocytes # (Auto) 0.46 K/uL (0.11-0.59) 08/26/21 Eosinophils # (Auto) 0.14 K/uL (0-0.5) 08/26/21 Basophils # (Auto) 0.06 K/uL (0-0.2) 08/26/21 Immature Granulocyte # (Auto) 0.02 K/uL (0.00-0.02) 08/26/21 Na 141 mmol/L (136-145) 08/26/21 K 3.6 mmol/L (3.5-5.1) 08/26/21 Cl 101 mmol/L (98-107) 08/26/21 CO2 31 mmol/L (21-32) 08/26/21 Anion Gap 9 (3-11) 08/26/21 BUN 9 mg/dl (6-23) 08/26/21 Creatinine 0.54 mg/dl (0.6-1.2) L 08/26/21 BUN/Creatinine Ratio 16.7 (10-20) 08/26/21 Glucose Level 111 mg/dl (70-99(Fasting)) H 08/26/21 Ca 9.1 mg/dl (8.5-10.1) 08/26/21 Total Bilirubin 1.4 mg/dl (0.2-1.0) H 08/26/21 AST/SGOT 21 U/L (13-39) 08/26/21 ALT/SGPT 12 U/L (7-52) 08/26/21 Alkaline Phosphatase 105 U/L (34-104) H 08/26/21 Total Protein 7.6 gm/dl (6.0-8.3) 08/26/21 Albumin 4.5 gm/dl (3.4-5.0) 08/26/21 Globulin 3.1 gm/dl (2.5-4.0) 08/26/21 Albumin/Globulin Ratio 1.5 (0.9-2) 08/26/21 PTT 25.9 Seconds (21.0-31.0) 08/26/21 INR 1.1 (0.9-1.1) 08/26/21 SARS-CoV-2, RNA, NAAT NEGATIVE (NEGATIVE) 08/26/21 Code Status & VTE Plan Code Status FULL CODE VTE Prophylaxis Plan VTE Prophylaxis will be ordered: Yes Supervising Physician Co-Signing Physician Notes Patient was seen and examined independently at bedside. Chart reviewed and case discussed with Flower COLE and agree with her documentation above. In summary, Samantha is a 76 year old female with h/o HTN, DM-2. TESHA, hyperparathyroidism s/p parathyroidectomy, h/o thyroid, ovarian and uterine cancer, who presented to the ED today with intermittent chest pain for 2-3 days, subcentral, lasting for few seconds, with no relation to activities or exertion, no radiation, and no associated symptoms. Does not wake her up from sleep. Has GERD but this feels different. Works at [employer]- physical activities. Had stress test done 06/2020 and 2016 which were negative. States she had about 5 episodes of those chest pain episodes in the ED but none during my encounter. She also had hypertensive urgency despite taking her lisinopril, metoprolol, aldactone at home, was given hydralazine in ED and BP was better. States she has not been taking her norvasc because she thinks it is too many pills. States she knows she has UTI when her urine color changes and currently her urine color is different and she thinks she is developing UTI, but she does not get dysuric symptoms, fever or chills. During my encounter, vitals stable, no chest pain, AAOx3, lying comfortably in bed, chest clear, heart sounds normal, abdomen benign, no edema. Palpation of the right lower costochondral region with tenderness. Labs reviewed. Trop negative, EKG with NSR with no acute ischemic changes. WBC normal, BMP normal, UA abnormal, Covid negative. Denies any recent viral or flu like illness. Agree with overnight observation with trending trop, tele, repeat EKG in am, npo after midnight for stress test in am, although her chest pain is atypical given her diabetes, HTN, age and family history. This chest pain could well be from costochondritis- heat pad, NSAIDs prn. Also, agree with starting her on empiric ABx for abnormal UA, awaiting urine clx results. Agree with adding back her norvasc for better control of her BP. Consider cardio consult if dynamic changes in EKG, trop, tele or stress test. Rest per the note above.
[2021-08-26] MEDS ORDERED: amLODIPine BESYLATE 5 MG TAB PO ONE (13:41)
[2021-08-26] MEDS ORDERED: ALUMINUM/MAGNESIUM SUSP 30 ML UDC PO PRN (13:41)
[2021-08-26] MEDS ORDERED: MAGNESIUM HYDROXIDE SUSP 30 ML UDC PO PRN (13:41)
[2021-08-26] MEDS ORDERED: ACETAMINOPHEN 325 MG TAB PO PRN (13:41)
[2021-08-26] MEDS ORDERED: DEXTROSE 50% 50 ML SYRINGE IV PRN (13:41)
[2021-08-26] MEDS ORDERED: GLUCOSE 10 TABS/TUBE PO PRN (13:41)
[2021-08-26] MEDS ORDERED: POLYETHYLENE (MIRALAX) 17 GM PACK PO PRN (13:41)
[2021-08-26] MEDS ORDERED: GLUCOSE 40% GEL 15 GM TUBE PO PRN (13:41)
[2021-08-26] MEDS ORDERED: GLUCAGON FOR INJ 1 MG VIAL SQ PRN (13:41)
[2021-08-26] MEDS ORDERED: ONDANSETRON INJ 2 MG/ML 2 ML VIAL IV PRN (13:41)
[2021-08-26] MEDS ORDERED: CARBOHYDRATES FOR HYPOGLYCEMIA PO PRN (13:41)
[2021-08-26] MEDS: cefTRIAXone SODIUM 1,000 MG in DEXTROSE 5% 50 ML IV SCH (13:54)
[2021-08-26] MEDS: INSULIN ASPART PER UNIT SC SCH ×3 (13:59→20:46)
--- NOTE | 2021-08-26 14:00 | XRay Report ---
SINGLE VIEW CHEST CLINICAL HISTORY: Atypical chest pain FINDINGS: An AP, portable, upright chest radiograph is compared to chest x-ray and chest CT dated . The cardiomediastinal silhouette is unremarkable noting atherosclerotic calcification of the thoracic aorta. The lungs and pleural spaces are clear. No pneumothorax is seen. The skeletal struct ures are osteopenic. The bony thorax is grossly intact. IMPRESSION: No active disease in the chest. ACT 112: Negative or not required by law. Electronically signed by: Kevin Cano M.D. 08/26/2021 1:59 PM
[2021-08-26] MEDS ORDERED: ENOXAPARIN INJ 40 MG/0.4 ML SYR SQ SCH (22:00)
[2021-08-27] MEDS ORDERED: LEVOTHYROXINE SODIUM 125 MCG TABLET PO SCH (06:30)
[2021-08-27 07:24] LABS: Basophils # (auto) 0.03 K/uL (0-0.2); Basophils % (auto) 0.4 %; Eosinophils # (auto) 0.15 K/uL (0-0.5); Eosinophils % (auto) 1.9 %; Hematocrit (blood only) 44.8 % (37-47); Hemoglobin 14.5 g/dL (12.0-16.0); Immature Granulocytes # (auto) 0.01 K/uL (0.00-0.02); Immature Granulocytes % (auto) 0.1 %; Lymphocytes # (auto) 1.45 K/uL (1.2-3.4); Lymphocytes % (auto) 17.9 %; Mean Corpuscular Hgb Conc 32.4 g/dL (32-36); Mean Corpuscular Volume 86.5 fL (80-100); Mean Platelet Volume 10.2 fL (7.4-10.4); Monocytes % (auto) 6.2 %; Neutrophils # (auto) 5.95 K/uL (1.4-6.5); Neutrophils % (auto) 73.5 %; Platelet Count 185 K/uL (130-400); RDW Coefficient of Variation 12.8 % (11.5-14.5); RDW Standard Deviation 41.1 fL (36.4-46.3); Red Blood Count 5.18 M/uL (4.2-5.4); White Blood Count 8.09 K/uL (4.8-10.8)
[2021-08-27 07:45] LABS: Albumin Globulin Ratio 1.5 (0.9-2); Albumin Level 4.1 gm/dl (3.4-5.0); Bilirubin,Total 1.4 mg/dl (0.2-1.0); Calcium 8.7 mg/dl (8.5-10.1); Chol HDL Ratio 3.7 (0-5); Creatinine Clr Calc Pharmacy 97.3 ml/min; Est GFR (African American) 108.2 ml/min; Est GFR (Non-African American) 93.4 ml/min; Globulin 2.7 gm/dl (2.5-4.0); Magnesium 1.6 mg/dl (1.7-2.4); Potassium 3.2 mmol/L (3.5-5.1); Total Protein 6.8 gm/dl (6.0-8.3)
[2021-08-27] MEDS: INSULIN ASPART PER UNIT SC SCH ×3 (07:49→16:44)
[2021-08-27] MEDS: cefTRIAXone SODIUM 1,000 MG in DEXTROSE 5% 50 ML IV SCH (08:36)
[2021-08-27] MEDS ORDERED: ATORVASTATIN 20 MG TAB PO SCH (09:00)
[2021-08-27] MEDS ORDERED: lisinopril 40 MG TAB PO SCH (09:00)
[2021-08-27] MEDS ORDERED: METOPROLOL SUCC 50MG EXT REL TAB PO SCH (09:00)
[2021-08-27] MEDS ORDERED: amLODIPine BESYLATE 5 MG TAB PO SCH ×2 (09:00)
[2021-08-27] MEDS ORDERED: SERTRALINE HCL 50 MG TABLET PO SCH (09:00)
[2021-08-27] MEDS ORDERED: PANTOprazole 40 MG TAB PO SCH (09:00)
[2021-08-27] MEDS ORDERED: MIRABEGRON ER 25 MG TAB PO SCH (09:00)
[2021-08-27] MEDS ORDERED: SPIRONOLACTONE 12.5 MG TAB PO SCH (09:00)
[2021-08-27] MEDS ORDERED: CHOLECALCIFEROL 1,000 UNITS 25 MCG TAB PO SCH (09:00)
[2021-08-27] MEDS ORDERED: CALCIUM 600MG + VIT D 400 IU TAB PO SCH (09:00)
[2021-08-27 09:12] LABS: Estimated Average Glucose 143 mg/dl; Hemoglobin A1C 6.6 % (4.5-5.6)
[2021-08-27] MEDS ORDERED: DOBUTamine HCL 12.5 MG/ML 20 ML VIAL IV ONE (10:14)
[2021-08-27] MEDS ORDERED: ATROPINE SULFATE 0.1 MG/ML 10ML SYR IV ONE (10:14)
[2021-08-27] MEDS ORDERED: METOPROLOL TARTRATE 1 MG/ML VIAL IV ONE (10:14)
[2021-08-27] MEDS: POTASSIUM CHLORIDE / WTR 10 MEQ/100 ML PLCT IV SCH ×2 (12:03→13:05)
--- NOTE | 2021-08-27 13:52 | Hospitalist Progress Note ---
Date of Service August 27, 2021 Assessment & Plan (1) Chest pain: (2) Hypertensive urgency: (3) T2DM (type 2 diabetes mellitus): (4) HLD (hyperlipidemia): (5) TESHA (obstructive sleep apnea): Plan: This is a 76-year-old female who has a significant past medical history of HTN, HLD, ascending aortic dilatation, TESHA noncompliant with CPAP, T2DM, hyperparathyroidism status post parathyroidectomy, history of papillary thyroid carcinoma, senile osteoporosis, vitamin D deficiency, MDD, renal angiomyolipoma who presents to ED secondary to chest pain x3 days. Chest Pain Hypertensive urgency CP present for 3 days off and on, initial trop x 2 negative, ecg w/o ischemic change CP is reproducible, presented with BP 235/107 improved with IV hydralazine she has been compliant with metoprolol, lisinopril and aldactone she is prescribed amlodipine, but has not been taking it will start amlodipine 5mg daily and x 1 now, encourage pt to take on daily basis, monitor BP and keep log for PCP. Goal BP < 140/90 pt also has TESHA and is currently undergoing testing with sleep medicine to re initiate cpap, she has been off for several months cycle trops, control BP last stress test 06/2020- negative for inducible ischemia Echo of the heart-LV is normal in size, there is moderate concentric LV hypertrophy, the basal septum is thickened and angulated consistent with sigmoid septum, resting wall motion normal, stress wall motion appropriate increase in LV ventricular systolic function decreasing cavity site, no other stress-induced segmental wall motion abnormalities, EF 65 to 70%, grade 1 diastolic dysfunction, aortic valve sclerosis moderate without significant stenosis Status post dobutamine stress echo; normal pharmacologic stress echocardiogram. No echocardiographic or ECG evidence of myocardial ischemia having achieved at heart rate adequate for diagnostic purposes. We will observe her overnight and likely discharge in the morning Having headache Mostly in the right side, throbbing in nature No visual and no neuro symptoms Will observe Abnormal Urinalysis +nitrites, bacturia pt asymptomatic, afebrile, wbc wnl await urine culture urine culture in past in EPIC > 100k klebsiella Urine culture is growing gram-negative bacilli Has been on intravenous ceftriaxone T2DM a1c 05/2021 6.6 hold metformin novolog correction per protocol a1c in a.m.-minimally high at 6.6 HLD continue statin lipid panel in a.m. TESHA not on cpap continue w/u as OP hx of papillary thyroid ca hx of hyperparathyroidism s/p total thyroidectomy and parathyroidectomy hx of uterina ca Renal Angiomyolipoma - follows nephro DVT ppx: Lovenox Dispo: PCU, overnight monitoring, BP control, stress test in a.m., likely d/c tomorrow FULL CODE PCP: Amber Admission and Anticipated Discharge Date Admission Date: August 26, 2021 Subjective 08/27/2021 The patient was seen and examined in telemetry unit She complains to have headache mostly on the right side which is throbbing in nature Does have nausea likely secondary to received medication during the stress test Denies any other symptoms with the headache Denies any chest pain or palpitation Review of Systems Review of Systems: All systems reviewed and are unremarkable except as noted below Cardiovascular: Additional Comments: No palpitation and/or chest pain Physical Exam Physical Exam: Lying in bed with minimal discomfort due to nausea and headache Constitutional: well developed, well nourished, + ill appearing and + obese Eyes: PERRL, conjunctivae normal, anicteric sclerae ENMT: external ear and nose normal, oropharynx normal Neck: trachea midline, no thyromegaly Respiratory: no respiratory distress Auscultation: lungs clear to auscultation bilaterally; no crackles Cardiovascular: Rate/Rhythm: regular rate and regular rhythm; not tachycardic Heart Sounds: normal S1 and normal S2; no murmur Extremities: + edema (Trace edema bilaterally) Gastrointestinal (Abdomen): Inspection/Auscultation: + abdomen distended and normal bowel sounds Percussion/Palpation: abdomen soft; abdomen nontender Musculoskeletal: No acute arthritis in any joint Neurologic: Alert, awake and oriented x3. No focal sensory or no motor deficit appreciated Psychiatric: A+Ox3, euthymic affect Lymphatic: no cervical or axillary lymphadenopathy Results & Data Results & Data ([facility]) Vital Signs (Past 12 Hours) Vital Signs Temp Pulse Pulse Resp BP BP Pulse Ox 08/27/21 12:20 36.5 C 83 19 136/77 93 08/27/21 07:30 36.7 C 74 19 147/83 H 95 08/27/21 07:23 83 08/27/21 03:07 36.8 C 83 18 137/71 95 Laboratory Results Short CBC 08/27/21 Range/Units 06:57 WBC 8.09 (4.8-10.8) K/uL Hgb 14.5 (12.0-16.0) g/dL Hct 44.8 (37-47) % Plt Count 185 (130-400) K/uL BMP 08/27/21 06:57 Sodium 142 Potassium 3.2 L Chloride 104 Carbon Dioxide 30 BUN 10 Creatinine 0.50 L Glucose 121 H Calcium 8.7 Liver Function 08/27/21 Range/Units 06:57 Total Bilirubin 1.4 H (0.2-1.0) mg/dl AST 17 (13-39) U/L ALT 11 (7-52) U/L Alkaline Phosphatase 94 (34-104) U/L Albumin 4.1 (3.4-5.0) gm/dl Medications Administered Current Inpatient Medications Acetaminophen (Acetaminophen 325 Mg Tab) 650 mg PO Q4H PRN PRN Reason: Pain or Fever Stop: 09/25/21 13:40 Last Admin: 08/26/21 16:57 Dose: 650 mg Documented by: Al Hydrox/Mg Hydrox/Simethicone (Aluminum/Magnesium Susp 30 Ml Udc) 15 ml PO Q4H PRN PRN Reason: Dyspepsia Stop: 09/25/21 13:40 Amlodipine Besylate (Amlodipine Besylate 5 Mg Tab) [facility] [place] Stop: 09/26/21 08:59 Last Admin: 08/27/21 08:36 Dose: 5 mg Documented by: Aspirin (Aspirin 81 Mg Ectab) 81 mg PO HS [facility] Stop: 09/26/21 20:59 Atorvastatin Calcium (Atorvastatin 20 Mg Tab) 20 mg PO QAM [facility] Stop: 09/26/21 08:59 Last Admin: 08/27/21 08:36 Dose: 20 mg Documented by: Dextrose (Dextrose 50% 50 Ml Syringe) 25 - 50 ml IV UD PRN; Protocol PRN Reason: Hypoglycemia Protocol Stop: 09/25/21 13:40 Enoxaparin Sodium (Enoxaparin Inj 40 Mg/0.4 Ml Syr) 40 mg SQ Q24H [facility] Stop: 09/25/21 21:59 Last Admin: 08/26/21 21:16 Dose: 40 mg Documented by: Glucagon (Glucagon For Inj 1 Mg Vial) 1 mg SQ UD PRN; Protocol PRN Reason: Hypoglycemia Protocol Stop: 09/25/21 13:40 Glucose (Glucose 10 Tabs/Tube) 4 - 8 tabs PO UD PRN; Protocol PRN Reason: Hypoglycemia Protocol Stop: 09/25/21 13:40 Glucose (Glucose 40% Gel 15 Gm Tube) 15 - 30 gm PO UD PRN; Protocol PRN Reason: Hypoglycemia Protocol Stop: 09/25/21 13:40 Ceftriaxone Sodium 1,000 mg/ (Dextrose) 60 mls @ 100 mls/hr IV DAILY [facility]; Protocol Stop: 08/31/21 12:37 Last Infusion: 08/27/21 09:31 Dose: Infused Documented by: Insulin Aspart (Insulin Aspart Per Unit) 0 units SC ACHS [facility] Stop: 09/25/21 13:40 Last Admin: 08/27/21 12:08 Dose: Not Given Documented by: Levothyroxine Sodium (Levothyroxine Sodium 125 Mcg Tablet) 125 mcg PO DAILYBB [facility] Stop: 09/26/21 06:29 Last Admin: 08/27/21 06:25 Dose: 125 mcg Documented by: Lisinopril (Lisinopril 40 Mg Tab) 40 mg PO QAM [facility] Stop: 09/26/21 08:59 Last Admin: 08/27/21 08:37 Dose: 40 mg Documented by: Magnesium Hydroxide (Magnesium Hydroxide Susp 30 Ml Udc) 30 ml PO Q12H PRN PRN Reason: Constipation Stop: 09/25/21 13:40 Metoprolol Succinate (Metoprolol Succ 50mg Ext Rel Tab) 50 mg PO DAILY [facility] Stop: 09/26/21 08:59 Last Admin: 08/27/21 08:37 Dose: 50 mg Documented by: Mirabegron (Mirabegron Er 25 Mg Tab) 25 mg PO QAM [facility] Stop: 09/26/21 08:59 Last Admin: 08/27/21 08:37 Dose: 25 mg Documented by: Miscellaneous (Carbohydrates For Hypoglycemia ) 15 - 30 gm PO UD PRN PRN Reason: Hypoglycemia Protocol Stop: 09/25/21 13:40 Multivitamins/Minerals (Calcium 600mg + Vit D 400 Iu Tab) 1 tab PO QAM [facility] Stop: 09/26/21 08:59 Last Admin: 08/27/21 08:36 Dose: 1 tab Documented by: Ondansetron HCl (Ondansetron Inj 2 Mg/Ml 2 Ml Vial) 4 mg IV Q6H PRN PRN Reason: Nausea Stop: 09/25/21 13:40 Pantoprazole Sodium (Pantoprazole 40 Mg Tab) 40 mg PO QAM [facility] Stop: 09/26/21 08:59 Last Admin: 08/27/21 08:38 Dose: 40 mg Documented by: Polyethylene Glycol (Polyethylene (Miralax) 17 Gm Pack) 17 gm PO DAILY PRN PRN Reason: Constipation Stop: 09/25/21 13:40 Sertraline HCl (Sertraline Hcl 50 Mg Tablet) 50 mg PO DAILY [facility] Stop: 09/26/21 08:59 Last Admin: 08/27/21 08:38 Dose: 50 mg Documented by: Spironolactone (Spironolactone 12.5 Mg Tab) 12.5 mg PO QAM [facility] Stop: 09/26/21 08:59 Last Admin: 08/27/21 08:38 Dose: 12.5 mg Documented by: Vitamin D (Cholecalciferol 1,000 Units 25 Mcg Tab) 3,000 units PO DAILY [facility] Stop: 09/26/21 08:59 Last Admin: 08/27/21 08:36 Dose: 3,000 units Documented by:
--- NOTE | 2021-08-27 16:19 | Discharge Summary ---
Date of Service August 27, 2021 Admission HPI Per Admitting Provider This is a 76-year-old female who has a significant past medical history of HTN, HLD, ascending aortic dilatation, TESHA noncompliant with CPAP, T2DM, hyperparathyroidism status post parathyroidectomy, history of papillary thyroid carcinoma, senile osteoporosis, vitamin D deficiency, MDD, renal angiomyolipoma who presents to ED secondary to chest pain x3 days. She states over the last 3 days she has noticed intermittent and off and on substernal chest pain that is been nonradiating. She describes it as a dull pressure and rated as a 4 out of 10. She states symptoms last seconds and then go away on its own. She admits to experiencing similar chest pain in the past, but has never sought out evaluation. She denies any associated diaphoresis, lightheadedness, shortness of breath, palpitations or nausea. She does intermittently experience dizziness with walking and describes it as a, "spinning sensation." She states that many years ago she was diagnosed with vertigo and it feels similar. She does have strong family history of CAD with her brother who had a CABG as well as fatal [place]. Denies any smoking or alcohol use. She does not monitor her blood pressure at home on a regular basis. She does take lisinopril, metoprolol and Aldactone. She is also prescribed amlodipine, but states that she does not take this. She denies any recent illness, fever, chills, sweats, lightheadedness, syncope, cough, hemoptysis, chest pain with inspiration, nausea, vomiting, abdominal pain, dysuria, increased urgency or frequency with urination. She does have chronic urinary incontinence and wears a pad for this. She feels her urine color is darker lately and occasionally relates this to infection. In ED patient was severely hypertensive on arrival at 235/107. Her EKG was negative for any ischemic change and initial troponin was negative. Her lab work was unremarkable. Urinalysis concerning for possible infection however she is afebrile and WBC is WNL. She is also without symptoms. She has received IV hydralazine 10 mg in ED which improved pressure systolically to 130s. She still complains of off-and-on chest pain. She also admits to a significant amount of stress at work. She has worked at [employer] for 7 years. States she does not have a good family manager. She feels her family manager discriminates against hispanics. Admission Exam Per Admitting Provider Physical Exam: Constitutional: WD/WN, vitals as above, NAD, sitting up in bed, pleasant, conversing easily Head: Normocephalic, Atraumatic Eyes: PERRL, conjunctivae normal, anicteric sclerae ENMT: external ear and nose normal, oropharynx normal Neck: trachea midline, no thyromegaly normal visual inspection Respiratory: normal respiratory effort, lungs clear to auscultation, no wheeze, rales, rhonchi. Normal insp/exp effort, no accessory muscle use Cardiovascular: RRR, no murmur, no edema Vessels: no JVD or carotid bruit Chest: normal inspection of chest , CP reproducible with palp to sternal area Abdomen: normal bowel sounds, soft, nontender, no hepatosplenomegaly Musculoskeletal: no cyanosis or clubbing, extremities motor strength 5/5 Skin: no rashes, warm and dry normal turgor Neurologic: PERRL, EOMI, accommodation nl, no face palsy, no dysarthria CN's II-XI intact bilaterally and moves all extremities Psychiatric: A+Ox3, euthymic affect Lymphatic: no cervical or axillary lymphadenopathy : deferred Principal Diagnosis Chest pain status post negative dobutamine stress echo, hypertensive urgency, type 2 diabetes, TESHA Discharge Exam Lying in bed with minimal discomfort due to nausea and headache Constitutional well developed, well nourished, + ill appearing and + obese Eyes PERRL, conjunctivae normal, anicteric sclerae ENMT external ear and nose normal, oropharynx normal Neck trachea midline, no thyromegaly Respiratory no respiratory distress Auscultation: lungs clear to auscultation bilaterally; no crackles Cardiovascular Rate/Rhythm: regular rate and regular rhythm; not tachycardic Heart Sounds: normal S1 and normal S2; no murmur Extremities: + edema (Trace edema bilaterally) Gastrointestinal (Abdomen) Inspection/Auscultation: + abdomen distended and normal bowel sounds Percussion/Palpation: abdomen soft; abdomen nontender Psychiatric A+Ox3, euthymic affect Lymphatic no cervical or axillary lymphadenopathy Discharge Data Allergies Allergy/AdvReac Type Severity Reaction Status Date / Time cortisone Allergy Intermediate HEART Verified 08/26/21 09:19 PALPITATIONS & RASH Corticosteroids Allergy Unknown Unknown Verified 08/26/21 09:19 (Glucocorticoids) Sulfa (Sulfonamide Allergy Unknown Unknown Verified 08/26/21 09:19 Antibiotics) Consultations 08/26/21 10:54 ED Decision to Admit Stat Ordered Studies 08/26/21 08:50 CT head/brain wo con Stat Hospital Course (1) Chest pain: (2) Hypertensive urgency: (3) T2DM (type 2 diabetes mellitus): (4) HLD (hyperlipidemia): (5) TESHA (obstructive sleep apnea): This is a 76-year-old female who has a significant past medical history of HTN, HLD, ascending aortic dilatation, TESHA noncompliant with CPAP, T2DM, hyperparathyroidism status post parathyroidectomy, history of papillary thyroid carcinoma, senile osteoporosis, vitamin D deficiency, MDD, renal angiomyolipoma who presents to ED secondary to chest pain x3 days. Chest Pain Hypertensive urgency CP present for 3 days off and on, initial trop x 2 negative, ecg w/o ischemic change CP is reproducible, presented with BP 235/107 improved with IV hydralazine she has been compliant with metoprolol, lisinopril and aldactone she is prescribed amlodipine, but has not been taking it will start amlodipine 5mg daily and x 1 now, encourage pt to take on daily basis, monitor BP and keep log for PCP. Goal BP < 140/90 pt also has TESHA and is currently undergoing testing with sleep medicine to re initiate cpap, she has been off for several months cycle trops, control BP last stress test 06/2020- negative for inducible ischemia Echo of the heart-LV is normal in size, there is moderate concentric LV hypertrophy, the basal septum is thickened and angulated consistent with sigmoid septum, resting wall motion normal, stress wall motion appropriate increase in LV ventricular systolic function decreasing cavity site, no other stress-induced segmental wall motion abnormalities, EF 65 to 70%, grade 1 diastolic dysfunction, aortic valve sclerosis moderate without significant stenosis Status post dobutamine stress echo; normal pharmacologic stress echocardiogram. No echocardiographic or ECG evidence of myocardial ischemia having achieved at heart rate adequate for diagnostic purposes. We will observe her overnight and likely discharge in the morning Having headache Mostly in the right side, throbbing in nature No visual and no neuro symptoms Will observe Abnormal Urinalysis +nitrites, bacturia pt asymptomatic, afebrile, wbc wnl await urine culture urine culture in past in [facility] > 100k klebsiella Urine culture is growing gram-negative bacilli Has been on intravenous ceftriaxone T2DM a1c 05/2021 6.6 hold metformin novolog correction per protocol a1c in a.m.-minimally high at 6.6 HLD continue statin lipid panel in a.m. TESHA not on cpap continue w/u as OP hx of papillary thyroid ca hx of hyperparathyroidism s/p total thyroidectomy and parathyroidectomy hx of uterina ca Renal Angiomyolipoma - follows nephro DVT ppx: Lovenox Dispo: PCU, overnight monitoring, BP control, stress test in a.m., likely d/c tomorrow FULL CODE PCP: Amber Total Time Total Time Spent Total Time Spent (In Minutes): 35 minutes Discharge Plan Discharge Items Patient Disposition: Home - Self-Care Reason For Visit: CHEST PAIN,HYPERTENSIVE URGENCY,UTI Discharge Diagnosis: Chest pain status post negative dobutamine stress echo, hypertensive urgency, type 2 diabetes, TESHA Condition on Discharge: Good Activity: Resume your previous activity Non-emergency contact: Primary Care Provider Call non-emergency contact if: you have any medication questions and your symptoms worsen Follow-up/Referrals: Gordo Clark MD [Primary Care Provider] - (Date & Time 09/03/2021 11:20 AM Provider Gordo Clark MD Department General Internal Medicine [facility] ) Diet: Carb Consistent or DM2 Addtl Attending Provider Instructions: Please take precautions to avoid falls Please take your medications as advised Please keep appointments with your healthcare providers Pending Studies at Discharge: No Stand-Alone Forms: My [employer], Smoking Cessation Medications and DC Order Prescriptions: New sertraline 50 mg Tablet 50 mg PO DAILY 30 Days Qty: 30 RF: 0 Continued atorvastatin 20 mg tablet 20 mg PO QAM RF: 0 levothyroxine 125 mcg tablet 125 mcg PO DAILYBB RF: 0 lisinopril 40 mg tablet 40 mg PO QAM RF: 0 aspirin [Aspirin Low Dose] 81 mg Tablet,Delayed Release (Dr/Ec) 81 mg PO HS RF: 0 metformin 1,000 mg tablet 500 mg PO BID RF: 0 omeprazole 20 mg capsule,delayed release(DR/EC) 20 mg PO DAILYBB RF: 0 calcium citrate-vitamin D3 [Calcium Citrate + D] 315 mg-5 mcg (200 unit) Tablet 1 tab PO QAM RF: 0 amlodipine 5 mg tablet 5 mg PO QAM RF: 0 spironolactone 25 mg tablet 12.5 mg PO QAM RF: 0 Myrbetriq 25 mg tablet extended release 24 hr 25 mg PO QAM RF: 0 metoprolol succinate 50 mg tablet extended release 24 hr 50 mg PO DAILY RF: 0 cholecalciferol (vitamin D3) 25 mcg (1,000 unit) Tablet 3,000 unit PO DAILY RF: 0 Discharge Orders: Discharge Order (Routine); Ordered 08/27/21 Ordered By: Rashmi Irizarry Admission Data Admit Date/Time: 08/26/21 10:58 Attending Provider: Rashmi Irizarry Admit Provider: Kamlesh Puentes Primary Care Provider: Gordo Clark Other Providers: Kamlesh Puentes Other Interventions: Discharge Summary Assessment (RN) Last Done: 08/27/21 15:48
[2021-08-27] MEDS ORDERED: ASPIRIN 81 MG ECTAB PO SCH (21:00)
--- NOTE | 2021-08-27 23:33 | Electrocardiogram Report ---
Test Reason : Blood Pressure : / mmHG Vent. Rate : 083 BPM Atrial Rate : 083 BPM P-R Int : 150 ms QRS Dur : 090 ms QT Int : 350 ms P-R-T Axes : 061 009 033 degrees QTc Int : 411 ms Normal sinus rhythm Normal ECG When compared with ECG of 12-FEB-2020 02:00, No significant change was found Confirmed by Geovani Snow ([id number]) on 08/27/2021 11:33:37 PM Referred By: REFERRED SELF Confirmed By:Geovani Snow
--- NOTE | 2021-08-28 16:57 | Electrocardiogram Report ---
Test Reason : Blood Pressure : / mmHG Vent. Rate : 078 BPM Atrial Rate : 078 BPM P-R Int : 154 ms QRS Dur : 088 ms QT Int : 390 ms P-R-T Axes : 061 001 002 degrees QTc Int : 444 ms Normal sinus rhythm Normal ECG When compared with ECG of 26-AUG-2021 08:10, No significant change was found Confirmed by Geovani Snow ([id number]) on 08/28/2021 4:57:19 PM Referred By: REFERRED SELF Confirmed By:Geovnai Snow
== END 2021-08-27 17:12 | disposition home or self-care (01) ==
LOC: ED 08:08 → 2S 08:08 → SUATTDRO 10:58 → 2S 12:25

== ENCOUNTER 2022-07-29 09:40 | Inpatient (IN) ==
[2022-07-29] MEDS ORDERED: SODIUM CHLORIDE 0.9% 1000ML 1,000 ML IV STA (09:53)
[2022-07-29] MEDS ORDERED: MoRPHine SULFATE 4 MG/ML 1 ML CARP\\VIAL IV PRN (09:53)
[2022-07-29] MEDS ORDERED: ONDANSETRON INJ 2 MG/ML 2 ML VIAL IV STA (09:53)
--- NOTE | 2022-07-29 10:00 | Emergency Department Note ---
Impression & Plan Hydronephrosis with renal and ureteral calculous obstruction, Acute left flank pain, Acute respiratory distress, Tachycardia, Nausea & vomiting ED Provider Note NAME: ALFRED BROWN AGE: 77 SEX: F : 1945 ARRIVES VIA: Walk-In INFORMANT: Patient, ED PROVIDER(S): Dileep Biggs DO CHIEF COMPLAINT: Abdominal pain HPI: The patient is a 77-year-old female who presented to the emergency department for an evaluation of abdominal pain. The patient describes left- sided abdominal pain which began over the last few days. She now notices flank pain. She also thinks she has some hematuria. She had similar episode in the past with kidney stones. She has not been seen by her family doctor for the symptoms. She states her pain is moderate to severe and worsens with any movement. The patient has had no recent trauma. She states that she is been compliant with her outpatient medications. She arrived with family members. Apparently when she started having severe vomiting she was brought directly to the emergency department. ROS: See above HPI for pertinent positives & negatives. A total of 10 systems reviewed and were otherwise negative. PAST MEDICAL HISTORY: See Below PAST SURGICAL HISTORY: See Below FAMILY HISTORY: See Below SOCIAL HISTORY: See Below HOME MEDICATIONS: See Below ALLERGIES: See Below VITALS: See Below PHYSICAL EXAMINATION: GENERAL: The patient is awake and alert. The patient is very anxious and uncomfortable. EYES: The conjunctivae are clear. The pupils are round and reactive. EARS, NOSE, MOUTH AND THROAT: The nose is without any evidence of any deformity. NECK: The neck is nontender and supple. RESPIRATORY: Normal respiratory effort is noted there is no evidence of wheezing rhonchi or rales CARDIOVASCULAR: Regular rate and rhythm noted there no murmurs rubs or gallops normal S1 normal S2. GASTROINTESTINAL: The abdomen is soft and moderately distended. There is diffuse tenderness to palpation and guarding in the left lower quadrant. MUSCULOSKELETAL/EXTREMITIES: There is no evidence of gross deformity full range of motion is noted in the hips and shoulders. SKIN: There is no obvious evidence of any rash. There are no petechiae, pallor or cyanosis noted. NEUROLOGIC: Patient is awake alert and oriented x3 MEDICAL DECISION MAKING: The patient is a 77-year-old female who presented to the emergency department for an evaluation of left flank pain. The patient did appear to be in very severe pain. She was treated with IV fluids and IV pain medication in the emergency department. She was reevaluated multiple times. The patient started to decompensate. I was notified by nursing multiple times however I was in another room with a cardiac arrest requiring a significant amount of time. When I was able to evaluate the patient she appeared to have some difficulty breathing. She was tachycardic as well as hypertensive. I was unsure if this was secondary to the medication she was given. For this reason she was treated with Benadryl as well as DuoNeb therapy. Evaluating the patient's radiographic studies do not appear to show any abnormality on CT of the chest that would explain her breathing issues. The patient did appear to have a very proximal ureteral calculus with signs of urinary tract infection on urinalysis. For this reason she was also treated with IV antibiotics. I discussed patient's laboratory and radiographic studies with her as well as her son. I also discussed her condition with urology as well as the hospitalist group. They have agreed to evaluate the patient. It was felt that the patient may benefit from stenting especially if this could be related to an infection. Triage Nursing notes reviewed. Prior medical records reviewed Vital Signs: reviewed and remarkable for tachycardic and hypertensive. Differential diagnosis: Gastroenteritis, food borne illness, infections, appendicitis, diverticulitis, inflammatory bowel disease, obstruction, GI bleed, biliary pathology, volvulus, as well as other pathologies. ER treatment provided: See below Diagnostics interpreted by me: ECG: EKG was obtained in the emergency department. My interpretation is normal sinus rhythm at 95 bpm. There is no ectopy. There is no acute ST segment abnormalities noted. This was compared to a tracing from August 27, 2021. No changes were noted. A second EKG was done by nursing. My interpretation is sinus tachycardia at [address] segment abnormalities were noted. Compared to the earlier tracing there is an increase in the rate otherwise no specific changes are noted. Cardiac Monitoring: An order was placed for continuous cardiac monitoring. The monitor shows a rate of 134 bpm with sinus tachycardia. Laboratory studies: As stated above and show below. Imaging studies: See below. Radiographic imaging was reviewed by myself Consultation(s): I discussed this case with Lianne who is on for urology. I discussed this case with Dr. Davila who is on-call for the [facility] hospitalist group. ED COURSE: Procedures: none Critical Care: I have personally spent greater than 40 minutes of critical care time in the direct management of this patient. This includes bedside care, interpretation of diagnostic studies, and testing, discussion with consultants, patient, and family members, and other required patient management activities. This 40 minutes is in excess of all separately billable procedures. Past Med/Surg History Medical History Ascending aorta dilatation History of uterine cancer HLD (hyperlipidemia) HTN (hypertension) Hx of papillary thyroid carcinoma Hyperparathyroidism TESHA (obstructive sleep apnea) Ovarian cancer Renal angiomyolipoma Senile osteoporosis T2DM (type 2 diabetes mellitus) Thyroid cancer Uterine cancer Vitamin D deficiency Surgical History History of appendectomy History of cholecystectomy History of esophagogastroduodenoscopy (EGD) 2020 barretts, gastric polyps, gastritis, repeat 3 years History of hysterectomy 1980s History of parathyroidectomy History of sinus surgery History of thyroidectomy total 2019 History of ureter stent 2019 Hx of colonoscopy 2021 Family History Brother Myocardial infarction Diabetes Coronary heart disease Heart disease Father Diabetes Stroke Aunt Breast cancer Social History Smoking Status: Never smoker Tobacco Type: Cigarettes Hx Alcohol Use: No Hx Substance Use: No Preferred Language: Swedish Communication Ability: Effective Ammonium Sulfate Operator Required: No Beliefs That Will Affect Care: None marital status: Current Living Situation: Alone current occupational status: employed current occupation: [employer] Feels Safe at Home: Yes during the past year weight has: remained stable Assistive Devices: Cane Allergies Allergies Allergy/AdvReac Type Severity Reaction Status Date / Time cortisone Allergy Intermediate HEART Verified 04/15/22 10:13 PALPITATIONS & RASH Corticosteroids Allergy Unknown Unknown Verified 04/15/22 10:13 (Glucocorticoids) Sulfa (Sulfonamide Allergy Unknown Unknown Verified 04/15/22 10:13 Antibiotics) morphine AdvReac Difficulty Verified 07/29/22 11:34 Breathing Home Meds Home Medications Medication Instructions Recorded Confirmed aspirin 81 mg tablet,delayed 81 mg PO HS 02/12/20 04/15/22 release (Louisa Low Dose Aspirin) calcium citrate 315 mg-vitamin D3 1 tab PO QAM 02/12/20 07/29/22 5 mcg (200 unit) tablet (Calcium Citrate + D) levothyroxine 125 mcg tablet 125 mcg PO DAILYBB 02/12/20 07/29/22 lisinopril 40 mg tablet 40 mg PO QAM 02/12/20 07/29/22 metformin 1,000 mg tablet 500 mg PO BID 02/12/20 07/29/22 omeprazole 20 mg capsule,delayed 20 mg PO DAILYBB 02/12/20 07/29/22 release amlodipine 5 mg tablet 5 mg PO QAM 08/26/21 07/29/22 cholecalciferol (vitamin D3) 25 3,000 unit PO DAILY 08/26/21 07/29/22 mcg (1,000 unit) tablet metoprolol succinate 50 mg 50 mg PO DAILY 08/26/21 07/29/22 tablet,extended release 24 hr mirabegron 25 mg tablet,extended 25 mg PO QAM 08/26/21 07/29/22 release 24 hr (Myrbetriq) spironolactone 25 mg tablet 12.5 mg PO QAM 08/26/21 07/29/22 Results & Data (ED) Vital Signs Vital Signs - 24 hr 07/29/22 09:48 07/29/22 09:59 07/29/22 10:00 Temperature 36.9 C Temperature Source Temporal Artery Scan Pulse Rate 102 H 94 H 91 H Pulse Rate [Apical] Pulse Rhythm [Apical] Respiratory Rate 20 26 H Respiratory Effort / Characteristics Non-Labored Respiratory Depth Normal Respiratory Pattern Blood Pressure 177/100 H 181/103 H Blood Pressure [Right Arm] Blood Pressure Mean 125 129 Blood Pressure Mean [Right Arm] Blood Pressure Position [Right Arm] Pulse Oximetry 92 92 Oxygen Delivery Method Room Air Room Air Oxygen Flow Rate Sepsis Recent Fever Within 48 Hours No Sepsis New/Unexplained Change in Mental Status N/A Sepsis Action Taken by Nursing No Action Required Oxygen Flow Rate - Titration Pulse Oximetry Post Tiitration 07/29/22 10:30 07/29/22 10:53 07/29/22 11:00 Temperature Temperature Source Pulse Rate 99 H Pulse Rate [Apical] 136 H Pulse Rhythm [Apical] Respiratory Rate 14 33 H Respiratory Effort / Characteristics Non-Labored Spontaneous Respiratory Depth Normal Respiratory Pattern Blood Pressure 165/115 H Blood Pressure [Right Arm] 176/106 H Blood Pressure Mean 131 Blood Pressure Mean [Right Arm] 129 Blood Pressure Position [Right Arm] Semi-fowlers Pulse Oximetry 92 82 L 94 Oxygen Delivery Method Room Air Nasal Cannula Nasal Cannula Oxygen Flow Rate 0 4 Sepsis Recent Fever Within 48 Hours Sepsis New/Unexplained Change in Mental Status Sepsis Action Taken by Nursing Oxygen Flow Rate - Titration 4 Pulse Oximetry Post Tiitration 96 07/29/22 11:30 07/29/22 11:40 07/29/22 12:21 Temperature Temperature Source Pulse Rate Pulse Rate [Apical] 144 H 126 H Pulse Rhythm [Apical] Regular Respiratory Rate 36 H 32 H Respiratory Effort / Characteristics Labored Spontaneous Respiratory Depth Respiratory Pattern Tachypnea Tachypnea Blood Pressure Blood Pressure [Right Arm] 274/232 H 156/92 H Blood Pressure Mean Blood Pressure Mean [Right Arm] 246 113 Blood Pressure Position [Right Arm] Pulse Oximetry 94 94 92 Oxygen Delivery Method Oxymask Oxymask Oxymask Oxygen Flow Rate 15 10 15 Sepsis Recent Fever Within 48 Hours Sepsis New/Unexplained Change in Mental Status Sepsis Action Taken by Nursing Oxygen Flow Rate - Titration Pulse Oximetry Post Tiitration Home Medications Current Medication List: was personally reviewed by me Laboratory Data Attestation: I reviewed the patient's lab results. 07/29/22 10:25 07/29/22 10:25 Lab Results 07/29/22 07/29/22 07/29/22 Range/Units 10:00 10:25 10:25 WBC 7.12 (4.8-10.8) K/ul RBC 5.36 (4.20-5.40) M/uL Hgb 14.8 (12.0-16.0) g/dl POC Hgb (12.0-16.0) g/dl Hct 45.0 (37.0-47.0) % POC Hct (37-47) % MCV 84.0 (80.0-100.0) fL MCH 27.6 (25.0-34.0) pg MCHC 32.9 (32.0-36.0) g/dL RDW Std Deviation 38.6 (36.4-46.3) fL RDW Coeff of Sallie 12.8 (11.5-14.5) % Plt Count 175 (130-400) K/uL MPV 10.4 (9.4-12.4) fL Immature Gran % (Auto) 0.3 % Neut % (Auto) 91.9 % Lymph % (Auto) 6.3 % Elbert % (Auto) 0.4 % Eos % (Auto) 0.4 % Baso % (Auto) 0.7 % Neut # (Auto) 6.54 H (1.40-6.50) K/uL Lymph # (Auto) 0.45 L (1.2-3.4) K/uL Elbert # (Auto) 0.03 L (0.11-0.59) K/uL Eos # (Auto) 0.03 (0-0.50) K/uL Baso # (Auto) 0.05 (0-0.2) K/uL Immature Gran # (Auto) 0.02 (0.01-0.20) K/uL PT 11.8 (9.0-12.0) Seconds INR 1.1 (0.9-1.1) APTT 23.3 (21.0-31.0) Seconds PTT Ratio 0.8 POC Sodium (135-144) mmol/L Sodium (136-145) mmol/L POC Potassium (3.3-5.0) mmol/L Potassium (3.5-5.1) mmol/L POC Chloride (101-112) mmol/L Chloride (98-107) mmol/L Carbon Dioxide (21-32) mmol/L POC Total CO2 (24-31) mmol/L Anion Gap (3-11) POC Anion Gap (16-25) mmol/L POC BUN (7-18) mg/dl BUN (6-23) mg/dl Creatinine (0.6-1.2) mg/dl POC Creatinine (0.6-1.3) mg/dl Est Cr Clr Drug Dosing Est GFR ( Amer) ml/min Est GFR (Non-Af Amer) ml/min BUN/Creatinine Ratio (10-20) Glucose (70-99(Fasting)) mg/dl POC Glucose (other) (70-99) mg/dl Calcium (8.6-10.3) mg/dl POC Ioniz Calcium Naren (1.12-1.32) mmol/l Total Bilirubin (0.2-1.0) mg/dl AST (13-39) U/L ALT (7-52) U/L Alkaline Phosphatase (34-104) U/L Troponin I High Sens (0-14) pg/ml Total Protein (6.0-8.3) gm/dl Albumin (3.4-5.0) gm/dl Globulin (2.5-4.0) gm/dl Albumin/Globulin Ratio (0.9-2) Lipase (11-82) U/L Urine Color Urine Appearance (Clear) Urine pH (4.5-7.5) Ur Specific Ventura (1.000-1.030) Urine Protein (Negative) Urine Glucose (UA) (Negative) Urine Ketones (Negative) Urine Blood (Negative) Urine Nitrite (Negative) Urine Bilirubin (Negative) Urine Urobilinogen (Negative) Ur Leukocyte Esterase (Negative) Urine WBC (Auto) (0-5) /hpf Urine RBC (Auto) (0-4) /hpf U Hyaline Cast (Auto) (0-5) /lpf U Epithel Cells (Auto) (0-5) /lpf Urine Bacteria (Auto) (Negative) SARS-CoV-2, RNA, NAAT NEGATIVE (NEGATIVE) 07/29/22 07/29/22 07/29/22 Range/Units 10:25 10:30 11:08 WBC (4.8-10.8) K/ul RBC (4.20-5.40) M/uL Hgb (12.0-16.0) g/dl POC Hgb 15.6 (12.0-16.0) g/dl Hct (37.0-47.0) % POC Hct 46 (37-47) % MCV (80.0-100.0) fL MCH (25.0-34.0) pg MCHC (32.0-36.0) g/dL RDW Std Deviation (36.4-46.3) fL RDW Coeff of Sallie (11.5-14.5) % Plt Count (130-400) K/uL MPV (9.4-12.4) fL Immature Gran % (Auto) % Neut % (Auto) % Lymph % (Auto) % Elbert % (Auto) % Eos % (Auto) % Baso % (Auto) % Neut # (Auto) (1.40-6.50) K/uL Lymph # (Auto) (1.2-3.4) K/uL Elbert # (Auto) (0.11-0.59) K/uL Eos # (Auto) (0-0.50) K/uL Baso # (Auto) (0-0.2) K/uL Immature Gran # (Auto) (0.01-0.20) K/uL PT (9.0-12.0) Seconds INR (0.9-1.1) APTT (21.0-31.0) Seconds PTT Ratio POC Sodium 142 (135-144) mmol/L Sodium 142 (136-145) mmol/L POC Potassium 3.1 L (3.3-5.0) mmol/L Potassium 3.2 L (3.5-5.1) mmol/L POC Chloride 99 L (101-112) mmol/L Chloride 102 (98-107) mmol/L Carbon Dioxide 28 (21-32) mmol/L POC Total CO2 26 (24-31) mmol/L Anion Gap 12 H (3-11) POC Anion Gap 20.0 (16-25) mmol/L POC BUN 7 (7-18) mg/dl BUN 8 (6-23) mg/dl Creatinine 0.63 (0.6-1.2) mg/dl POC Creatinine 0.6 (0.6-1.3) mg/dl Est Cr Clr Drug Dosing Not Reportable Est GFR ( Amer) 99.6 ml/min Est GFR (Non-Af Amer) 85.9 ml/min BUN/Creatinine Ratio 12.7 (10-20) Glucose 162 H (70-99(Fasting)) mg/dl POC Glucose (other) 161 H (70-99) mg/dl Calcium 8.4 L (8.6-10.3) mg/dl POC Ioniz Calcium Naren 0.99 L (1.12-1.32) mmol/l Total Bilirubin 2.0 H (0.2-1.0) mg/dl AST 20 (13-39) U/L ALT 12 (7-52) U/L Alkaline Phosphatase 90 (34-104) U/L Troponin I High Sens 8.4 (0-14) pg/ml Total Protein 7.1 (6.0-8.3) gm/dl Albumin 4.6 (3.4-5.0) gm/dl Globulin 2.5 (2.5-4.0) gm/dl Albumin/Globulin Ratio 1.8 (0.9-2) Lipase 30 (11-82) U/L Urine Color Yellow Urine Appearance Clear (Clear) Urine pH 7.5 (4.5-7.5) Ur Specific Ventura 1.012 (1.000-1.030) Urine Protein Negative (Negative) Urine Glucose (UA) Negative (Negative) Urine Ketones 1+ H (Negative) Urine Blood Trace H (Negative) Urine Nitrite Negative (Negative) Urine Bilirubin Negative (Negative) Urine Urobilinogen Negative (Negative) Ur Leukocyte Esterase 2+ H (Negative) Urine WBC (Auto) 10-30 H (0-5) /hpf Urine RBC (Auto) 0-4 (0-4) /hpf U Hyaline Cast (Auto) 1-5 (0-5) /lpf U Epithel Cells (Auto) >30 H (0-5) /lpf Urine Bacteria (Auto) 4+ H (Negative) SARS-CoV-2, RNA, NAAT (NEGATIVE) Administered Medications Morphine Sulfate (Morphine Sulfate 4 Mg/Ml 1 Ml Carp\Vial) 4 mg IV Q15M PRN PRN Reason: Pain Stop: 08/12/22 09:52 Last Admin: 07/29/22 10:28 Dose: 4 mg Documented By: [facility] Discontinued Medications Albuterol (Albut/Ipratrop 3mg/0.5mg Neb 3 Ml Vial) Confirm Administered Dose 3 ml .ROUTE .STK-MED ONE Stop: 07/29/22 11:25 Last Admin: 07/29/22 11:29 Dose: Not Given Documented By: Albuterol (Albut/Ipratrop 3mg/0.5mg Neb 3 Ml Vial) 3 ml NEB NOW STA; Protocol Stop: 07/29/22 11:24 Last Admin: 07/29/22 11:29 Dose: 3 ml Documented By: Diphenhydramine HCl (Diphenhydramine 50 Mg/Ml Vial) 25 mg IV NOW STA Stop: 07/29/22 11:24 Last Admin: 07/29/22 11:28 Dose: 25 mg Documented By: Sodium Chloride (Nss 1000ml) 1,000 mls @ 999 mls/hr IV .Q1H1M STA Stop: 07/29/22 10:53 Last Infusion: 07/29/22 13:16 Dose: 0 mls/hr Documented By: Admin: 07/29/22 10:27 Dose: 999 mls/hr Documented By: NAOMI Promethazine HCl 12.5 mg/ (Sodium Chloride) 50.5 mls @ 202 mls/hr IV NOW STA Stop: 07/29/22 12:05 Last Infusion: 07/29/22 13:16 Dose: 0 mls/hr Documented By: Admin: 07/29/22 12:21 Dose: 202 mls/hr Documented By: Piperacillin Sod/Tazobactam Sod (Zosyn) 4.5 gm in 120 mls @ 240 mls/hr IV NOW ONE Stop: 07/29/22 12:49 Last Infusion: 07/29/22 13:16 Dose: 0 mls/hr Documented By: Infusion: 07/29/22 13:16 Dose: 0 mls/hr Documented By: Admin: 07/29/22 12:41 Dose: 240 mls/hr Documented By: VANCE Ioversol (Optiray 320 500ml) 120 ml IV ONCE ONE Stop: 07/29/22 12:01 Last Admin: 07/29/22 12:00 Dose: 120 ml Documented By: SYEDA Ondansetron HCl (Ondansetron Inj 2 Mg/Ml 2 Ml Vial) 4 mg IV NOW STA Stop: 07/29/22 09:54 Last Admin: 07/29/22 10:28 Dose: 4 mg Documented By: NAOMI Imaging Data Attestation: I personally reviewed and interpreted this imaging study as follows: My Impression: CT of the abdomen and pelvis was obtained in the emergency department. My interpretation is proximal left ureteral calculus with hydronephrosis and stranding at the left kidney. Final report below. Radiologist's Impression: Abdomen/Pelvis CT 07/29/22 09:53 CT OF THE ABDOMEN AND PELVIS WITH CONTRAST CLINICAL HISTORY: Vomiting. Left lower quadrant pain. COMPARISON STUDY: CT of the abdomen and pelvis April 02, 2022. TECHNIQUE: Following IV administration of 120 mL of Optiray, axial images of the abdomen and pelvis were obtained from the lung bases to the proximal femurs. Images were reviewed in the axial, sagittal, and coronal planes. IV contrast was administered without complication. Automated exposure control was utilized for the study. A dose lowering technique was utilized adhering to the principles of ALARA. FINDINGS: Please note that the chest CT will be reported separately. A 7 mm left ureteropelvic junction calculus results in mild to moderate left hydronephrosis with moderate perinephric fluid. There is mild dilatation of the right collecting system. No additional urinary calculi are identified. 1.3 cm hypodense lesion within the superior aspect of the spleen is indeterminate but statistically benign. The liver, adrenal glands and pancreas are unremarkable. There are numerous subcentimeter bilateral renal lesions. These are too small to characterize but likely reflect cysts. There is no evidence for a bowel obstruction. Submucosal fat deposition within the colon is chronic. There is no lymphadenopathy. No fluid collection is present to suggest an abscess. Major vasculature is patent. There is no biliary or pancreatic ductal dilatation. The gallbladder is not visualized. No acute fractures. No suspicious osseous lesions within the visualized skeletal structures. IMPRESSION: 1. 7 mm left ureteropelvic junction calculus which results in mild to moderate left hydronephrosis with moderate perinephric fluid. 2. Mild right collecting system dilatation. No right ureteral calculi. 3. No bowel obstruction. ACT 112: Negative or not required by law. Electronically signed by: Abundio Olivo M.D. 07/29/2022 12:32 PM Chest X-Ray 07/29/22 09:54 SINGLE VIEW CHEST CLINICAL HISTORY: Vomiting FINDINGS: An AP, portable, upright chest radiograph is compared to study dated 08/26/2021 and correlated with chest CT dated 02/12/2020. The examination is degraded by portable technique and apical lordotic positioning. The heart is enlarged noting atherosclerotic calcification of the thoracic aorta. The pulmonary vascular is noncongested. Chronic interstitial thickening is similar to previous. The lungs and pleural spaces are clear noting dependent atelectasis. No pneumothorax is seen. The skeletal structures are osteopenic. The bony thorax is grossly intact. IMPRESSION: Cardiomegaly with no acute cardiopulmonary abnormality identified. ACT 112: Negative or not required by law. Electronically signed by: Kevin Cano M.D. 07/29/2022 10:[address] 07/29/22 11:51 CT OF THE HEAD WITHOUT CONTRAST CLINICAL HISTORY: Vomiting. COMPARISON STUDY: Head CT August 26, 2021. TECHNIQUE: Helical axial images of the head were obtained without IV contrast. Automated exposure control was utilized for the study. A dose lowering technique was utilized adhering to the principles of ALARA. FINDINGS: No acute intracranial hemorrhage, midline shift or mass effect is present. The ventricular system is stable. White matter hypodensity suggests small vessel disease. The basal cisterns are patent. No extra-axial collections are present. There are no findings to suggest acute dural sinus thrombosis or acute territorial infarct. There is mild mucosal thickening with a small air- fluid level within left maxillary sinus. IMPRESSION: 1. No acute intracranial findings. 2. Mild mucosal thickening with a small air-fluid level within the left maxi llary sinus. ACT 112: Negative or not required by law. Electronically signed by: Abundio Olivo M.D. 07/29/2022 12:24 PM Chest CTA 07/29/22 11:56 CT ANGIOGRAM OF THE CHEST CLINICAL HISTORY: Vomiting. Atypical chest pain. COMPARISON STUDY: Chest x-ray dated 07/29/2022. Chest CT dated 02/12/2020. TECHNIQUE: Following the IV administration of 120 cc of Optiray 320, CT angiogram of the chest was performed from the upper abdomen to the thoracic inlet utilizing the pulmonary embolus protocol. Images are reviewed in the axial, sagittal, and coronal planes. 3-D MIPS images are created and assessed. IV contrast was administered without complication. A dose lowering technique was utilized adhering to the principles of ALARA. The examination is degraded by large body habitus, and by streak artifact from the body wall abutting its etiology. There is also streak artifact from the arms which could not be elevated of the chest. There is also motion artifact. CT DOSE: 3143.92 mGy.cm FINDINGS: Thyroid: Imaged portions of the thyroid gland are normal in size and attenuation. Thoracic aorta: There is atherosclerotic calcification of the thoracic aorta comment which is normal in caliber and demonstrates variant 3-vessel arch anatomy. 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 No dissection is seen. Pulmonary vasculature: The pulmonary trunk is mildly dilated measuring 3.3 cm in diameter. This suggests pulmonary artery hypertension. There are no filling defects identified in the main or lobar pulmonary branches to suggest pulmonary embolus. The segmental and subsegmental branches are not well evaluated due to significant motion artifact. Heart: The heart is enlargement and without pericardial effusion. The coronary arteries are densely calcified. Lungs and pleural spaces: Evaluation of the lung parenchyma is significantly degraded by motion artifact. No airspace consolidation or pleural effusion is identified. There is bibasilar scarring/atelectasis. There is a 4 mm right lower lobe pulmonary nodule on image #124 and a 3 mm right minimal lobe nodule on image #125. A 4 mm lingular nodule is seen on image #144. These are likely unchanged but not well assessed due to significant motion artifact. Mediastinum: There is no mediastinal lymphadenopathy. Maribel: Clear. Axillae: There is no axillary lymphadenopathy. Upper abdomen: The liver is enlarged and steatotic. A small hiatal hernia is noted. Left-sided pelvic stranding is partially imaged. Cc abdominal CT report performed concurrently for detailed findings. Skeletal structures: The skeletal structures are osteopenic. Degenerative change is noted in the thoracic spine. No lytic or blastic bony lesions are seen. There are chronic/healed right-sided rib fractures. Soft tissues: Bilateral breast implants are in place. IMPRESSION: 1. Streak and motion compromised examination. 2. There is no evidence of central pulmonary embolus in the main or lobar pulmonary arteries. The segmental and subsegmental branches were not well assessed due to significant motion artifact. 3. Cardiomegaly. 4. There is no airspace consolidation typical for pneumonia or pleural effusion. 5. Subcentimeter pulmonary nodules are again noted. These are not well evaluated due to motion artifact and likely unchanged from previous. 6. Hepatomegaly and hepatic steatosis. 7. Additional findings as above. ACT 112: Negative or not required by law. Electronically signed by: Kevin Cano M.D. 07/29/2022 12:37 PM Discharge Plan Visit Data Chief Complaint: Abdominal Pain Stated Complaint: LEFT SIDED ABDOMINAL PAIN WITH VOMITTING ED Provider: Dileep Biggs Discharge Problem: Hydronephrosis with renal and ureteral calculous obstruction, Acute left flank pain, Acute respiratory distress, Tachycardia, Nausea & vomiting Patient Disposition: Being Evaluated by Hospitalist
--- NOTE | 2022-07-29 10:47 | XRay Report ---
SINGLE VIEW CHEST CLINICAL HISTORY: Vomiting FINDINGS: An AP, portable, upright chest radiograph is compared to study dated 08/26/2021 and correlat ed with chest CT dated 02/12/2020. The examination is degraded by portable technique and apical lordo tic positioning. The heart is enlarged noting atherosclerotic calcification of the thoracic aorta. Th e pulmonary vascular is noncongested. Chronic interstitial thickening is similar to previous. The raquel gs and pleural spaces are clear noting dependent atelectasis. No pneumothorax is seen. The skeletal s tructures are osteopenic. The bony thorax is grossly intact. IMPRESSION: Cardiomegaly with no acute cardiopulmonary abnormality identified. ACT 112: Negative or not required by law. Electronically signed by: Kevin Caon M.D. 07/29/2022 10:45 AM
[2022-07-29 10:51] LABS: Hemoglobin 14.8 g/dl (12.0-16.0); Mean Corpuscular Hemoglobin 27.6 pg (25.0-34.0); Mean Corpuscular Hgb Conc 32.9 g/dL (32.0-36.0); Mean Platelet Volume 10.4 fL (9.4-12.4); Platelet Count 175 K/uL (130-400); RDW Coefficient of Variation 12.8 % (11.5-14.5); RDW Standard Deviation 38.6 fL (36.4-46.3); Red Blood Count 5.36 M/uL (4.20-5.40); White Blood Count 7.12 K/ul (4.8-10.8)
[2022-07-29 11:00] LABS: iSTAT Creatinine 0.6 mg/dl (0.6-1.3); iSTAT Hemoglobin 15.6 g/dl (12.0-16.0); iSTAT Ionized Calcium 0.99 mmol/l (1.12-1.32); iSTAT Potassium 3.1 mmol/L (3.3-5.0)
[2022-07-29 11:06] LABS: Alanine Aminotransferase 12 U/L (7-52); Albumin Globulin Ratio 1.8 (0.9-2); Albumin Level 4.6 gm/dl (3.4-5.0); Alkaline Phosphatase 90 U/L (34-104); Anion Gap 12 (3-11); Aspartate Aminotransferase 20 U/L (13-39); BUN Creatinine Ratio 12.7 (10-20); Blood Urea Nitrogen 8 mg/dl (6-23); Calcium 8.4 mg/dl (8.6-10.3); Carbon Dioxide 28 mmol/L (21-32); Chloride 102 mmol/L (98-107); Est GFR (African American) 99.6 ml/min; Est GFR (Non-African American) 85.9 ml/min; Globulin 2.5 gm/dl (2.5-4.0); Glucose 162 mg/dl (70-99(Fasting)); Lipase 30 U/L (11-82); Potassium 3.2 mmol/L (3.5-5.1); Sodium 142 mmol/L (136-145); Total Protein 7.1 gm/dl (6.0-8.3)
[2022-07-29 11:12] LABS: Troponin I High Sensitivity 8.4 pg/ml (0-14)
[2022-07-29 11:17] LABS: Basophils # (auto) 0.05 K/uL (0-0.2); Basophils % (auto) 0.7 %; Eosinophils # (auto) 0.03 K/uL (0-0.50); Eosinophils % (auto) 0.4 %; Immature Granulocytes # (auto) 0.02 K/uL (0.01-0.20); Immature Granulocytes % (auto) 0.3 %; Lymphocytes # (auto) 0.45 K/uL (1.2-3.4); Lymphocytes % (auto) 6.3 %; Monocytes # (auto) 0.03 K/uL (0.11-0.59); Monocytes % (auto) 0.4 %; Neutrophils # (auto) 6.54 K/uL (1.40-6.50); Neutrophils % (auto) 91.9 %
[2022-07-29 11:22] LABS: Appearance Urine Clear (Clear); Bacteria Urine Automated 4+ (Negative); Bilirubin Urine Negative (Negative); Blood Urine Trace (Negative); Color Urine Yellow; Epithelial Cell Urine Auto >30 /lpf (0-5); Glucose Urine UA Negative (Negative); Ketones Urine 1+ (Negative); Leukocyte Esterase Urine 2+ (Negative); Nitrite Urine Negative (Negative); Protein Urine Negative (Negative); RBC Urine Automated 0-4 /hpf (0-4); Specific Gravity Urine 1.012 (1.000-1.030); Urobilinogen Urine Negative (Negative); pH Urine 7.5 (4.5-7.5)
[2022-07-29] MEDS ORDERED: diphenhydrAMINE 50 MG/ML VIAL IV STA (11:23)
[2022-07-29] MEDS ORDERED: ALBUT/IPRATROP 3MG/0.5MG NEB 3 ML VIAL NEB STA (11:23)
[2022-07-29] MEDS ORDERED: ALBUT/IPRATROP 3MG/0.5MG NEB 3 ML VIAL ONE (11:24)
[2022-07-29 11:29] LABS: INR 1.1 (0.9-1.1); Partial Thromboplastin Ratio 0.8; Partial Thromboplastin Time 23.3 Seconds (21.0-31.0); Prothrombin Time 11.8 Seconds (9.0-12.0)
[2022-07-29] MEDS ORDERED: PROMETHAZINE HCL 12.5 MG in SODIUM CHLORIDE 0.9% 50 ML IV STA (11:51)
[2022-07-29] MEDS ORDERED: OPTIRAY 320 500ml IV ONE (12:00)
[2022-07-29] MEDS ORDERED: PIPERACILLIN/TAZOBACTAM 4.5 GM/120 ML BAG IV ONE (12:20)
--- NOTE | 2022-07-29 12:26 | CT Scan Report ---
CT OF THE HEAD WITHOUT CONTRAST CLINICAL HISTORY: Vomiting. COMPARISON STUDY: Head CT August 26, 2021. TECHNIQUE: Helical axial images of the head were obtained without IV contrast. Automated exposure con trol was utilized for the study. A dose lowering technique was utilized adhering to the principles o f ALARA. FINDINGS: No acute intracranial hemorrhage, midline shift or mass effect is present. The ventricular system is stable. White matter hypodensity suggests small vessel disease. The basal cisterns are jansen nt. No extra-axial collections are present. There are no findings to suggest acute dural sinus thromb osis or acute territorial infarct. There is mild mucosal thickening with a small air-fluid level with in left maxillary sinus. IMPRESSION: 1. No acute intracranial findings. 2. Mild mucosal thickening with a small air-fluid level within the left maxillary sinus. ACT 112: Negative or not required by law. Electronically signed by: Abundio Olivo M.D. 07/29/2022 12:24 PM
--- NOTE | 2022-07-29 12:34 | CT Scan Report ---
CT OF THE ABDOMEN AND PELVIS WITH CONTRAST CLINICAL HISTORY: Vomiting. Left lower quadrant pain. COMPARISON STUDY: CT of the abdomen and pelvis April 02, 2022. TECHNIQUE: Following IV administration of 120 mL of Optiray, axial images of the abdomen and pelvis w ere obtained from the lung bases to the proximal femurs. Images were reviewed in the axial, sagittal, and coronal planes. IV contrast was administered without complication. Automated exposure control w as utilized for the study. A dose lowering technique was utilized adhering to the principles of SOPHIE Rodgers. FINDINGS: Please note that the chest CT will be reported separately. A 7 mm left ureteropelvic juncti on calculus results in mild to moderate left hydronephrosis with moderate perinephric fluid. There is mild dilatation of the right collecting system. No additional urinary calculi are identified. 1.3 cm hypodense lesion within the superior aspect of the spleen is indeterminate but statistically benign. The liver, adrenal glands and pancreas are unremarkable. There are numerous subcentimeter bilateral renal lesions. These are too small to characterize but likely reflect cysts. There is no evidence for a bowel obstruction. Submucosal fat deposition within the colon is chronic. There is no lymphadenopa thy. No fluid collection is present to suggest an abscess. Major vasculature is patent. There is no b iliary or pancreatic ductal dilatation. The gallbladder is not visualized. No acute fractures. No radha picious osseous lesions within the visualized skeletal structures. IMPRESSION: 1. 7 mm left ureteropelvic junction calculus which results in mild to moderate left hydronephrosis wi th moderate perinephric fluid. 2. Mild right collecting system dilatation. No right ureteral calculi. 3. No bowel obstruction. ACT 112: Negative or not required by law. Electronically signed by: Abundio Olivo M.D. 07/29/2022 12:32 PM
--- NOTE | 2022-07-29 12:38 | CT Scan Report ---
CT ANGIOGRAM OF THE CHEST CLINICAL HISTORY: Vomiting. Atypical chest pain. COMPARISON STUDY: Chest x-ray dated 07/29/2022. Chest CT dated 02/12/2020. TECHNIQUE: Following the IV administration of 120 cc of Optiray 320, CT angiogram of the chest was pe rformed from the upper abdomen to the thoracic inlet utilizing the pulmonary embolus protocol. Images are reviewed in the axial, sagittal, and coronal planes. 3-D MIPS images are created and assessed. I V contrast was administered without complication. A dose lowering technique was utilized adhering to the principles of ALARA. The examination is degraded by large body habitus, and by streak artifact f rom the body wall abutting its etiology. There is also streak artifact from the arms which could not be elevated of the chest. There is also motion artifact. CT DOSE: 3143.92 mGy.cm FINDINGS: Thyroid: Imaged portions of the thyroid gland are normal in size and attenuation. Thoracic aorta: There is atherosclerotic calcification of the thoracic aorta comment which is normal in caliber and demonstrates variant 3-vessel arch anatomy. There is a common origin of the common car otid arteries, and an aberrant right subclavian artery arises as the fourth branch coursing posterior to the esophagus. No dissection is seen. Pulmonary vasculature: The pulmonary trunk is mildly dilated measuring 3.3 cm in diameter. This sugge sts pulmonary artery hypertension. There are no filling defects identified in the main or lobar pulmo nary branches to suggest pulmonary embolus. The segmental and subsegmental branches are not well eval uated due to significant motion artifact. Heart: The heart is enlargement and without pericardial effusion. The coronary arteries are densely c alcified. Lungs and pleural spaces: Evaluation of the lung parenchyma is significantly degraded by motion artif act. No airspace consolidation or pleural effusion is identified. There is bibasilar scarring/atelect asis. There is a 4 mm right lower lobe pulmonary nodule on image #124 and a 3 mm right minimal lobe n odule on image #125. A 4 mm lingular nodule is seen on image #144. These are likely unchanged but not well assessed due to significant motion artifact. Mediastinum: There is no mediastinal lymphadenopathy. Maribel: Clear. Axillae: There is no axillary lymphadenopathy. Upper abdomen: The liver is enlarged and steatotic. A small hiatal hernia is noted. Left-sided pelvic stranding is partially imaged. Cc abdominal CT report performed concurrently for detailed findings. Skeletal structures: The skeletal structures are osteopenic. Degenerative change is noted in the thor acic spine. No lytic or blastic bony lesions are seen. There are chronic/healed right-sided rib fract ures. Soft tissues: Bilateral breast implants are in place. IMPRESSION: 1. Streak and motion compromised examination. 2. There is no evidence of central pulmonary embolus in the main or lobar pulmonary arteries. The seg mental and subsegmental branches were not well assessed due to significant motion artifact. 3. Cardiomegaly. 4. There is no airspace consolidation typical for pneumonia or pleural effusion. 5. Subcentimeter pulmonary nodules are again noted. These are not well evaluated due to motion artifa ct and likely unchanged from previous. 6. Hepatomegaly and hepatic steatosis. 7. Additional findings as above. ACT 112: Negative or not required by law. Electronically signed by: Kevin Cano M.D. 07/29/2022 12:37 PM
--- NOTE | 2022-07-29 13:04 | History & Physical Report ---
Date of Service July 29, 2022 Assessment & Plan (1) Obstruction of left ureteropelvic junction (UPJ) due to stone: (2) HLD (hyperlipidemia): (3) TESHA (obstructive sleep apnea): (4) HTN (hypertension): (5) T2DM (type 2 diabetes mellitus): (6) Acute metabolic encephalopathy: (7) Sepsis: (8) Allergy to morphine: Plan Left Ureteral stone with mod-mod hydronephrosis -UA +LE, nitrates. S/p Zosyn in ER. Will continue Cefepime -NSS at 100 cc/hr -Further surgical management per Urology Acute Metabolic Encephalopathy -Due to benadryl and morphine. Avoid sedating medications Allergic Reaction to Morphine -After receiving morphine, patient noted to have shaking/rigors. Upon further questioning, she reports morphine allergy. Morphine added to allergy list -s/p Albuterol and Benadryl -Continue to monitor closely Tachycardia -Noted to have worsening sinus tachycardia while here. Likely from B agonist (received Albuterol) in setting of sepsis -Monitor on Telemetry Sepsis -Present on admission with tachycardia, tachypnea. Urinary source of infection Acute hypoxic respiratory failure -Underlying TESHA, likely obesity hypoventilation syndrome. Maintain O2sat > 90% Dispo- Admit to PCU DVT ppx- Start SQ heparin if no plans for cystoscopy today History of Present Illness Chief Complaint: left abdominal pain Primary Care Provider: Gordo Clark MD This is a 76-year-old female who has a significant past medical history of HTN, HLD, ascending aortic dilatation, TESHA noncompliant with CPAP, T2DM, hy perparathyroidism status post parathyroidectomy, history of papillary thyroid carcinoma, senile osteoporosis, vitamin D deficiency, MDD, renal angiomyolipoma who presents to ED secondary to left abdominal pain which began this morning at 8am. She also had dry heaving. History of kidney stones and found to have a 7 mm left ureteropelvic junction with mild-mod hydronephrosis. In the ER, she received morphine, phenergan, zosyn. After receiving the morphine, her son reports that she had "uncontrollable shivering/shakes" and upon further questioning from patient she may have a morphine allergy (it has since been added to her allergy list). She then received benadryl and albuterol then went for CT A/P. After receiving benadryl she has been very drowsy. History obtained by speaking with her son and ER provider. Son lives in apartment above patient. Son reports mom has been in her usual state of health until this morning when she called him stating she was unwell. Allergies Allergy/AdvReac Type Severity Reaction Status Date / Time cortisone Allergy Intermediate HEART Verified 04/15/22 10:13 PALPITATIONS & RASH Corticosteroids Allergy Unknown Unknown Verified 04/15/22 10:13 (Glucocorticoids) Sulfa (Sulfonamide Allergy Unknown Unknown Verified 04/15/22 10:13 Antibiotics) morphine AdvReac Difficulty Verified 07/29/22 11:34 Breathing Home Medications Medication Instructions Recorded Confirmed Type aspirin 81 mg tablet,delayed 81 mg PO HS 02/12/20 04/15/22 History release (Louisa Low Dose Aspirin) calcium citrate 315 mg-vitamin D3 1 tab PO QAM 02/12/20 07/29/22 History 5 mcg (200 unit) tablet (Calcium Citrate + D) levothyroxine 125 mcg tablet 125 mcg PO DAILYBB 02/12/20 07/29/22 History lisinopril 40 mg tablet 40 mg PO QAM 02/12/20 07/29/22 History metformin 1,000 mg tablet 500 mg PO BID 02/12/20 07/29/22 History omeprazole 20 mg capsule,delayed 20 mg PO DAILYBB 02/12/20 07/29/22 History release amlodipine 5 mg tablet 5 mg PO QAM 08/26/21 07/29/22 History cholecalciferol (vitamin D3) 25 3,000 unit PO DAILY 08/26/21 07/29/22 History mcg (1,000 unit) tablet metoprolol succinate 50 mg 50 mg PO DAILY 08/26/21 07/29/22 History tablet,extended release 24 hr mirabegron 25 mg tablet,extended 25 mg PO QAM 08/26/21 07/29/22 History release 24 hr (Myrbetriq) spironolactone 25 mg tablet 12.5 mg PO QAM 08/26/21 07/29/22 History Past Med/Surg History Medical History Ascending aorta dilatation History of uterine cancer HLD (hyperlipidemia) HTN (hypertension) Hx of papillary thyroid carcinoma Hyperparathyroidism TESHA (obstructive sleep apnea) Ovarian cancer Renal angiomyolipoma Senile osteoporosis T2DM (type 2 diabetes mellitus) Thyroid cancer Uterine cancer Vitamin D deficiency Surgical History History of appendectomy History of cholecystectomy History of esophagogastroduodenoscopy (EGD) 2020 barretts, gastric polyps, gastritis, repeat 3 years History of hysterectomy 1980s History of parathyroidectomy History of sinus surgery History of thyroidectomy total 2018 History of ureter stent 2019 Hx of colonoscopy 2021 Family History Brother Myocardial infarction Diabetes Coronary heart disease Heart disease Father Diabetes Stroke Aunt Breast cancer Social History Smoking Status: Never smoker Tobacco Type: Cigarettes Hx Alcohol Use: No Hx Substance Use: No Preferred Language: Iranian Communication Ability: Effective Type Disk Quality Control Supervisor Required: No Beliefs That Will Affect Care: None marital status: Current Living Situation: Alone current occupational status: employed current occupation: [employer] Feels Safe at Home: Yes during the past year weight has: remained stable Assistive Devices: Cane Review of Systems Review of Systems: As above in HPI, remaining ROS otherwise negative Physical Exam Physical Exam: drowsy, somnolent, opens eyes to voice ENMT: normocephalic, atraumatic Neck: neck thick Respiratory: rapid breathing, no audible wheezing or rhonchi Cardiovascular: tachycardic, no murmurs/rubs/gallops Gastrointestinal (Abdomen): soft, non tender, non distended Musculoskeletal: no edema, no cyanosis or clubbing, warm Skin: no ulcer, no rash, no redness, no bruising noted on exposed skin Neurologic: somnolent, opens eyes to voice and touch, unable to answer questions Results & Data Results & Data Vital Signs (Past 12 Hours) Vital Signs Temp Pulse Pulse Resp BP BP Pulse Ox 07/29/22 12:21 126 H 32 H 156/92 H 92 07/29/22 11:40 94 07/29/22 11:30 144 H 36 H 274/232 H 94 07/29/22 11:00 136 H 33 H 176/106 H 94 07/29/22 10:53 82 L 07/29/22 10:30 99 H 14 165/115 H 92 07/29/22 10:00 91 H 26 H 181/103 H 92 07/29/22 09:59 94 H 07/29/22 09:48 36.9 C 102 H 20 177/100 H 92 O2 Del Method O2 Flow Rate 07/29/22 12:21 Oxymask 15 07/29/22 11:40 Oxymask 10 07/29/22 11:30 Oxymask 15 07/29/22 11:00 Nasal Cannula 4 07/29/22 10:53 Nasal Cannula 0 07/29/22 10:30 Room Air 07/29/22 10:00 Room Air 07/29/22 09:59 07/29/22 09:48 Room Air (5) T2DM (type 2 diabetes mellitus) Diabetes mellitus complication status: without complication Diabetes mellitus half-way insulin use: without timber management professor use Qualified Code(s): E11.9 - Type 2 diabetes mellitus without complications
--- NOTE | 2022-07-29 13:43 | Urology Consultation ---
I have discussed Ms. Pollock's case with CEFERINO Kong and agree with the above documentation. Obstructing stone in the setting of UTI raises concern for developing sepsis. Would recommend placement of ureteral stent to ensure drainage of her kidney. Initially this was planned and then there was some debate as to whether she was healthy/stable enough for anesthesia. Per the most recent discussion, plan is to proceed with surgery on an emergent basis, most likely by the on-call urologist. -Barry Washington MD. Date of Consultation July 29, 2022 Assessment & Plan (1) Calculus of proximal left ureter: 77 yo F who presented to the emergency department on 07/29/2022 with left flank/ abdominal pain and nausea secondary to an obstructing 7 mm left UPJ stone with mild to moderate hydronephrosis. -Patient is afebrile, but tachycardic and tachypneic -Labs reviewedno leukocytosis, creatinine 0.63 -CT independently reviewed and notable for an obstructing 7 mm left UPJ stone with mild to moderate hydronephrosis -Urinalysis concerning for infection with 2+ LE, 10-30 WBC, 4+ bacteria -Urine culture is pending -Continue broad-spectrum antibiotics and narrow per sensitivities when available -She was treated with IV Zosyn in the emergency department Discussed CT findings with patient's son. Discussed concern for urinary tract infection in the context of her obstructing stone. Recommend left ureteral stent placement emergently to relieve obstruction. Ureteral stents were dis cussed in detail. We discussed that stone treatment can be done at a later date after acute infection has been treated. He is agreeable to proceed with left ureteral stent placement today. Given her tachycardia, tachypnea and concern for urinary tract infection in the context of an obstructing 7 mm left ureteral stone, will proceed with OR for cystoscopy, Left retrograde pyelogram and Left stent placement. Risks and benefits to be reviewed with patient by Dr. Washington. OR notified. She was treated with IV Zosyn preoperatively. Keep NPO for procedure. History of Present Illness History of Present Illness This is a 77-year-old female with past medical history of type 2 diabetes, hypertension, obstructive sleep apnea, hyperlipidemia who presented to the emergency department on 07/29/2022 with left flank/abdominal pain and nausea. She was afebrile on arrival, but hypertensive and tachycardic. Lab work inde pendently reviewed and showed WBC 7.12, hemoglobin 14.8, creatinine 0.63, potassium 3.2. COVID negative. Urinalysis notable for trace blood, 2+ LE, 10- 30 WBC, greater than 30 epithelial cells, 4+ bacteria. CT abdomen and pelvis independently reviewed and notable for a 7 mm left ureteropelvic junction calculus resulting in mild to moderate left hydronephrosis with moderate perinephric fluid. Mild right collecting system dilatation, no right ureteral calculi. ED course included IV Zosyn, ondansetron, promethazine, IV fluids, diphenhydramine, and morphine. Urology consulted for left ureteral calculus. Patient examined in the emergency department. She is somnolent, arousable but not interactive. No apparent distress. Her son is at bedside who helps provide history. She developed left flank/abdominal pain and nausea and dry heaves early this morning. Denies fever or chills at home. Her son reports she developed chills after Morphine. Son reports she tried to eat breakfast at 7 am but was unable to due to nausea/vomiting. He reports that she has history of stones with stone treatment in [place] about 4 years ago. ROS largely unobtainable due to cognitive status. Allergies Allergy/AdvReac Type Severity Reaction Status Date / Time cortisone Allergy Intermediate HEART Verified 04/15/22 10:13 PALPITATIONS & RASH Corticosteroids Allergy Unknown Unknown Verified 04/15/22 10:13 (Glucocorticoids) Sulfa (Sulfonamide Allergy Unknown Unknown Verified 04/15/22 10:13 Antibiotics) morphine AdvReac Difficulty Verified 07/29/22 11:34 Breathing Home Medications Medication Instructions Recorded Confirmed Type aspirin 81 mg tablet,delayed 81 mg PO HS 02/12/20 04/15/22 History release (Louisa Low Dose Aspirin) calcium citrate 315 mg-vitamin D3 1 tab PO QAM 02/12/20 07/29/22 History 5 mcg (200 unit) tablet (Calcium Citrate + D) levothyroxine 125 mcg tablet 125 mcg PO DAILYBB 02/12/20 07/29/22 History lisinopril 40 mg tablet 40 mg PO QAM 02/12/20 07/29/22 History metformin 1,000 mg tablet 500 mg PO BID 02/12/20 07/29/22 History omeprazole 20 mg capsule,delayed 20 mg PO DAILYBB 02/12/20 07/29/22 History release amlodipine 5 mg tablet 5 mg PO QAM 08/26/21 07/29/22 History cholecalciferol (vitamin D3) 25 3,000 unit PO DAILY 08/26/21 07/29/22 History mcg (1,000 unit) tablet metoprolol succinate 50 mg 50 mg PO DAILY 08/26/21 07/29/22 History tablet,extended release 24 hr mirabegron 25 mg tablet,extended 25 mg PO QAM 08/26/21 07/29/22 History release 24 hr (Myrbetriq) spironolactone 25 mg tablet 12.5 mg PO QAM 08/26/21 07/29/22 History Patient History Medical History Ascending aorta dilatation History of uterine cancer HLD (hyperlipidemia) HTN (hypertension) Hx of papillary thyroid carcinoma Hyperparathyroidism TESHA (obstructive sleep apnea) Ovarian cancer Renal angiomyolipoma Senile osteoporosis T2DM (type 2 diabetes mellitus) Thyroid cancer Uterine cancer Vitamin D deficiency Surgical History History of appendectomy History of cholecystectomy History of esophagogastroduodenoscopy (EGD) 2020 barretts, gastric polyps, gastritis, repeat 3 years History of hysterectomy 1980s History of parathyroidectomy History of sinus surgery History of thyroidectomy total 2019 History of ureter stent 2019 Hx of colonoscopy 2021 Family History Brother Myocardial infarction Diabetes Coronary heart disease Heart disease Father Diabetes Stroke Aunt Breast cancer Social History Smoking Status: Never smoker Tobacco Type: Cigarettes Hx Alcohol Use: No Hx Substance Use: No Preferred Language: Khmer Communication Ability: Effective Tax Accountant Required: No Beliefs That Will Affect Care: None marital status: Current Living Situation: Alone current occupational status: employed current occupation: [employer] Feels Safe at Home: Yes during the past year weight has: remained stable Assistive Devices: Cane Review of Systems Review of Systems: Unobtainable due to cognitive status Physical Exam Constitutional: well developed, well nourished and + ill appearing; no acute distress Respiratory: + tachypneic oxymask in place Cardiovascular: Rate/Rhythm: + tachycardic Extremities: no pedal edema Gastrointestinal (Abdomen): Inspection/Auscultation: abdomen normal to inspec tion; abdomen not distended Percussion/Palpation: abdomen soft; abdomen nontender Psychiatric: Orientation: oriented to person somnolent Genitourinary: no CVA tenderness Results & Data Vital Signs (Past 12 Hours) Vital Signs Temp Pulse Pulse Resp BP BP Pulse Ox 07/29/22 12:21 126 H 32 H 156/92 H 92 07/29/22 11:40 94 07/29/22 11:30 144 H 36 H 274/232 H 94 07/29/22 11:00 136 H 33 H 176/106 H 94 07/29/22 10:53 82 L 07/29/22 10:30 99 H 14 165/115 H 92 07/29/22 10:00 91 H 26 H 181/103 H 92 07/29/22 09:59 94 H 07/29/22 09:48 36.9 C 102 H 20 177/100 H 92 O2 Del Method O2 Flow Rate 07/29/22 12:21 Oxymask 15 07/29/22 11:40 Oxymask 10 07/29/22 11:30 Oxymask 15 07/29/22 11:00 Nasal Cannula 4 07/29/22 10:53 Nasal Cannula 0 07/29/22 10:30 Room Air 07/29/22 10:00 Room Air 07/29/22 09:59 07/29/22 09:48 Room Air PG Care Time/CCT Total # of Minutes Spent Total Time Spent with Patient: Total time spent is greater than 50% in coordination of care (as documented) at patient's floor/unit and/or counseling patient: Coding Level of Care Code 31315 INT INP/OBS CARE 2/55MIN Diagnoses Calculus of proximal left ureter N20.1 Time Spent (min) 60
[2022-07-29] MEDS ORDERED: SODIUM CHLORIDE 0.9% 1000ML 1,000 ML IV ONE (13:45)
[2022-07-29 14:34] LABS: iSTAT Arterial Blood Gas HCO3 22 meg/L (19-24); iSTAT Arterial Blood Gas pCO2 38 mmHg (35-46); iSTAT Arterial Blood Gas pH 7.38 (7.35-7.45); iSTAT Arterial Blood Gas pO2 54 mmHg (80-95); iSTAT Carbon Dioxide 23 mmol/L (24-31); iSTAT Hematocrit 47 % (37-47); iSTAT Potassium 2.8 mmol/L (3.3-5.0); iSTAT Sodium 139 mmol/L (135-144)
--- NOTE | 2022-07-29 14:48 | Anesthesiology Consultation ---
Date of Service July 29, 2022 Assessment & Plan (1) Encounter for pre-operative examination: Chart Review Chart Review: Patient NOT seen in Pre Admission Testing emergent case History Surgery Operation Date: 07/29/22 10:20 Proposed Procedures p Cystoscopy, Left Retrograde Pyelogram, Left Stent Placement - Barry Washington MD Height/Weight Height: 5 ft 3 in Weight: 99.79 kg Allergies Allergy/AdvReac Type Severity Reaction Status Date / Time cortisone Allergy Intermediate HEART Verified 04/15/22 10:13 PALPITATIONS & RASH Corticosteroids Allergy Unknown Unknown Verified 04/15/22 10:13 (Glucocorticoids) Sulfa (Sulfonamide Allergy Unknown Unknown Verified 04/15/22 10:13 Antibiotics) morphine AdvReac Difficulty Verified 07/29/22 11:34 Breathing Medications Home Medications Medication Instructions Recorded Confirmed Last Taken aspirin 81 mg tablet,delayed 81 mg PO HS 02/12/20 04/15/22 08/25/21 release (Louisa Low Dose Aspirin) calcium citrate 315 mg-vitamin D3 1 tab PO QAM 02/12/20 07/29/22 08/26/21 5 mcg (200 unit) tablet (Calcium Citrate + D) levothyroxine 125 mcg tablet 125 mcg PO DAILYBB 02/12/20 07/29/22 07/29/22 lisinopril 40 mg tablet 40 mg PO QAM 02/12/20 07/29/22 08/26/21 metformin 1,000 mg tablet 500 mg PO BID 02/12/20 07/29/22 08/26/21 omeprazole 20 mg capsule,delayed 20 mg PO DAILYBB 02/12/20 07/29/22 07/28/22 release amlodipine 5 mg tablet 5 mg PO QAM 08/26/21 07/29/22 Unknown cholecalciferol (vitamin D3) 25 3,000 unit PO DAILY 08/26/21 07/29/22 Unknown mcg (1,000 unit) tablet metoprolol succinate 50 mg 50 mg PO DAILY 08/26/21 07/29/22 Unknown tablet,extended release 24 hr mirabegron 25 mg tablet,extended 25 mg PO QAM 08/26/21 07/29/22 08/26/21 release 24 hr (Myrbetriq) spironolactone 25 mg tablet 12.5 mg PO QAM 08/26/21 07/29/22 08/26/21 Active Medications Generic Name Dose Route Start Last Admin Trade Name Ernestine PRN Reason Stop Dose Admin Morphine Sulfate 4 mg 07/29/22 09:53 07/29/22 10:28 Morphine Sulfate 4 Mg/Ml 1 Ml Carp\Vial IV 08/12/22 09:52 4 mg Q15M PRN Administration Pain Past Medical History Medical History Ascending aorta dilatation History of uterine cancer HLD (hyperlipidemia) HTN (hypertension) Hx of papillary thyroid carcinoma Hyperparathyroidism TESHA (obstructive sleep apnea) Ovarian cancer Renal angiomyolipoma Senile osteoporosis T2DM (type 2 diabetes mellitus) Thyroid cancer Uterine cancer Vitamin D deficiency Past Family History Family History Brother Myocardial infarction Diabetes Coronary heart disease Heart disease Father Diabetes Stroke Aunt Breast cancer Past Surgical History Surgical History History of appendectomy History of cholecystectomy History of esophagogastroduodenoscopy (EGD) 2020 barretts, gastric polyps, gastritis, repeat 3 years History of hysterectomy 1980s History of parathyroidectomy History of sinus surgery History of thyroidectomy total 2019 History of ureter stent 2019 Hx of colonoscopy 2021 Social History Smoking Status: Never smoker Hx Alcohol Use: No Hx Substance Use: No Physical Exam Vital Signs Last Vital Signs Temp 98.4 F 07/29/22 09:48 Pulse 134 H 07/29/22 13:46 Resp 32 H 07/29/22 12:21 BP 156/92 H 07/29/22 12:21 Pulse Ox 92 07/29/22 12:21 O2 Del Method Oxymask 07/29/22 12:21 O2 Flow Rate 15 07/29/22 12:21 Testing Laboratory Results 07/29/22 10:25 07/29/22 10:25 PT 11.8 Seconds (9.0-12.0) 07/29/22 10:25 INR 1.1 (0.9-1.1) 07/29/22 10:25 APTT 23.3 Seconds (21.0-31.0) 07/29/22 10:25 Urine Color Yellow 07/29/22 11:08 Urine Appearance Clear (Clear) 07/29/22 11:08 Urine pH 7.5 (4.5-7.5) 07/29/22 11:08 Ur Specific [place] 1.012 (1.000-1.030) 07/29/22 11:08 Urine Protein Negative (Negative) 07/29/22 11:08 Urine Glucose (UA) Negative (Negative) 07/29/22 11:08 Urine Ketones 1+ (Negative) H 07/29/22 11:08 Urine Nitrite Negative (Negative) 07/29/22 11:08 Ur Leukocyte Esterase 2+ (Negative) H 07/29/22 11:08 Urine WBC (Auto) 10-30 /hpf (0-5) H 07/29/22 11:08 Urine RBC (Auto) 0-4 /hpf (0-4) 07/29/22 11:08 U Hyaline Cast (Auto) 1-5 /lpf (0-5) 07/29/22 11:08 U Epithel Cells (Auto) >30 /lpf (0-5) H 07/29/22 11:08 Urine Bacteria (Auto) 4+ (Negative) H 07/29/22 11:08 07/29/22 10:30 POC Glucose (other) 161 H Electrocardiogram Date: 07/29/22 Findings: + NSR @ Inferior infarct , age undetermined Possible Anterior infarct , age undetermined Abnormal ECG Chest X-Ray Date: 07/29/22 Findings: + cardiomegaly
[2022-07-29] MEDS ORDERED: LIDOCAINE 2% MPF LOCAL 5 ML VIAL ONE (15:02)
[2022-07-29] MEDS ORDERED: PROPOFOL IV EMULSION 10 MG/ML 20 ML VIAL IV ONE (15:02)
[2022-07-29] MEDS ORDERED: fentaNYL citrate PF 100 MCG/2 ML VIAL ONE (15:02)
[2022-07-29] MEDS ORDERED: MIDAZOLAM HCL 1 MG/ML 2ML VIAL ONE (15:02)
[2022-07-29] MEDS ORDERED: MAGNESIUM HYDROXIDE SUSP 30 ML UDC PO PRN (15:28)
[2022-07-29] MEDS ORDERED: POLYETHYLENE (MIRALAX) 17 GM PACK PO PRN (15:28)
[2022-07-29] MEDS ORDERED: SODIUM CHLORIDE 0.9% 1000ML 1,000 ML IV SCH (15:28)
[2022-07-29] MEDS ORDERED: VANCOMYCIN HCL 1 GM/270 ML BAG IV ONE (15:53)
[2022-07-29] MEDS ORDERED: ONDANSETRON INJ 2 MG/ML 2 ML VIAL IV PRN (15:56)
[2022-07-29] MEDS ORDERED: ATROPINE SULFATE 0.1 MG/ML 10ML SYR IV PRN (15:56)
[2022-07-29] MEDS ORDERED: PHENYLEPHRINE 100MCG/ML 5ML SYR IV PRN (15:56)
[2022-07-29] MEDS ORDERED: VANCOMYCIN HCL 1,000 MG in SODIUM CHLORIDE 0.9% 250 ML IV STA (16:02)
[2022-07-29] MEDS ORDERED: VANCOMYCIN CONSULT ACTIVE PRN (16:02)
[2022-07-29] MEDS ORDERED: DIATRIZOATE MEGLUMINE 30% 100ML VIAL INSTIL ONE (16:11)
--- NOTE | 2022-07-29 16:14 | Post Operative Brief Note ---
PG Immediate Post Op with CF Date of Surgery July 29, 2022 Pre & Post Diagnosis Left ureteral calculus, sepsis Operation Date: 07/29/22 10:20 <No data on this case meets the specified criteria> Left ureteral calculus, sepsis I identified the patient and participated in the time-out.: Yes Procedure Cystoscopy, left retrograde pyelogram with radiograph interpretation, left ureteral stent placement, Worthy catheter placement Operation Date: 07/29/22 10:20 <No data on this case meets the specified criteria> Surgeon Collins Suarez MD Ethics Manager None Estimated Blood Loss 0 Findings See Below Moderate left hydronephrosis. Stent in appropriate position. Drains Worthy Catheter and Other (6 Macedonian by 24 cm left ureteral stent) Anesthesia Type MAC Complications none
--- NOTE | 2022-07-29 16:16 | Operative Report ---
PG Post Operative Report Pre & Post Diagnosis Left ureteral calculus, sepsis Operation Date: 07/29/22 10:20 <No data on this case meets the specified criteria> Left ureteral calculus, sepsis I identified the patient and participated in the time-out.: Yes Procedure Cystoscopy, left retrograde pyelogram with radiograph interpretation, left ureteral stent placement, Worthy catheter placement Operation Date: 07/29/22 10:20 <No data on this case meets the specified criteria> Surgeon Collins Suarez MD News Department Intern None Estimated Blood Loss 0 Findings See Below Moderate left hydronephrosis, stent in appropriate position Specimens None Drains 1. 6 Turkish by 24 cm left ureteral stent 2. 16 Turkish Worthy catheter with 10 cc in balloon Anesthesia Type MAC Complications none Indications 77-year-old female presented with tachycardia, tachypnea and somnolence. CT scan showed a proximal obstructing left ureteral calculus and urinalysis was consistent with infection. Taken emergently to the OR for stent placement. Consent obtained from son as patient cannot provide consent on her own Description of Procedure After informed consent was obtained, the patient was transported operative suite. MAC anesthesia was induced. The patient was placed in dorsal lithotomy position prepped and draped in a sterile fashion. They received preoperative vancomycin and ceftriaxone for antibiotic prophylaxis. An appropriate surgical timeout was performed. A 22 Turkish rigid scope was inserted per urethra into the bladder. Espinoza cystoscopy revealed no stones or lesions. I turned my attention the left ureteral orifice and intubated this with a 5 Turkish open-ended catheter. A left retrograde pyelogram was shot which showed moderate left hydronephrosis. A sensor wire was advanced into the kidney and confirmed fluoroscopically. A 6 Turkish by 24 cm left ureteral stent was deployed with a good proximal coil in the renal pelvis and a good distal coil noted in the bladder. These were confirmed fluoroscopically and under direct visualization, respectively. The bladder left full and the scope was removed. 16 Turkish Worthy catheter was placed with return of clear urine. 10 cc of sterile water was used to inflate the balloon. This concluded the end of the case. All counts were correct at the end of the case. I was present, scrubbed, and actively participated for the entirety of the procedure. I attest to the content of the Intraoperative Record and any orders documented therein. Any exceptions are noted below.
[2022-07-29] MEDS ORDERED: PHENYLEPHRINE 100MCG/ML 5ML SYR ONE (16:32)
--- NOTE | 2022-07-29 17:02 | Anesthesiology Progress Note ---
Date of Service July 29, 2022 Anesthesia Post Procedure Vital Signs Vital Signs: Temp Pulse Pulse Resp BP BP Pulse Ox 07/29/22 16:56 119 H 32 H 95 07/29/22 16:55 37.6 C H 123 H 30 H 145/94 H 95 07/29/22 16:45 37.6 C H 121 H 31 H 127/91 95 07/29/22 16:35 36.4 C L 120 H 31 H 126/75 95 07/29/22 16:32 36.4 C L 118 H 32 H 112/74 97 07/29/22 15:50 143 H 07/29/22 15:50 07/29/22 15:45 138 H 40 H 134/83 96 07/29/22 15:30 36.5 C 141 H 40 H 129/93 94 07/29/22 15:18 139 H 47 H 94 07/29/22 13:46 134 H 07/29/22 12:21 126 H 32 H 156/92 H 92 07/29/22 11:40 94 07/29/22 11:30 144 H 36 H 274/232 H 94 07/29/22 11:00 136 H 33 H 176/106 H 94 07/29/22 10:53 82 L 07/29/22 10:30 99 H 14 165/115 H 92 07/29/22 10:00 91 H 26 H 181/103 H 92 07/29/22 09:59 94 H 07/29/22 09:48 36.9 C 102 H 20 177/100 H 92 O2 Del Method O2 Flow Rate FiO2 07/29/22 16:56 55 07/29/22 16:55 CPAP 55 07/29/22 16:45 CPAP 55 07/29/22 16:35 CPAP 55 07/29/22 16:32 CPAP 55 07/29/22 15:50 07/29/22 15:50 CPAP 07/29/22 15:45 CPAP 10 07/29/22 15:30 CPAP 07/29/22 15:18 60 07/29/22 13:46 07/29/22 12:21 Oxymask 15 07/29/22 11:40 Oxymask 10 07/29/22 11:30 Oxymask 15 07/29/22 11:00 Nasal Cannula 4 07/29/22 10:53 Nasal Cannula 0 07/29/22 10:30 Room Air 07/29/22 10:00 Room Air 07/29/22 09:59 07/29/22 09:48 Room Air Transfer of Care Handoff Completed per policy Notes Mental Status: alert / awake / arousable (more rousable than preop but not answering questions) Patient Amnestic to Procedure: Yes Nausea / Vomiting: adequately controlled Pain: adequately controlled Airway Patency, RR, SpO2: see Notes below BP & HR: stable & adequate Hydration State: stable & adequate Anesthetic Complications: no major complications apparent Notes: continues on CPAP with an elevated resp rate and adequate O2 sats
[2022-07-29 17:05] LABS: iSTAT Allen Test Pass; iSTAT Art Bld Gas pCO2 Correct 42 mmHg (35-46); iSTAT Art Bld Gas pH Corrected 7.323 (7.35-7.45); iSTAT Arterial Blood Gas HCO3 22 meg/L (19-24); iSTAT Arterial Blood Gas pCO2 41 mmHg (35-46); iSTAT Arterial Blood Gas pH 7.33 (7.35-7.45); iSTAT Arterial Blood Gas pO2 95 mmHg (80-95); iSTAT Arterial Blood Gas pO2 C 98; iSTAT Carbon Dioxide 23 mmol/L (24-31); iSTAT FiO2 55 %; iSTAT Hematocrit 45 % (37-47); iSTAT Hemoglobin 15.3 g/dl (12.0-16.0); iSTAT Potassium 2.3 mmol/L (3.3-5.0); iSTAT Site L Radial; iSTAT Sodium 142 mmol/L (135-144)
[2022-07-29 17:49] LABS: iSTAT Creatinine 0.6 mg/dl (0.6-1.3); iSTAT Hemoglobin 15.6 g/dl (12.0-16.0); iSTAT Ionized Calcium 0.98 mmol/l (1.12-1.32); iSTAT Potassium 3.1 mmol/L (3.3-5.0)
[2022-07-29] MEDS: POTASSIUM CHLORIDE / WTR 10 MEQ/100 ML PLCT IV SCH (18:44)
--- NOTE | 2022-07-29 18:55 | Critical Care Consultation ---
Date of Consultation July 29, 2022 Assessment & Plan (1) Hydronephrosis with renal and ureteral calculous obstruction: (2) Acute left flank pain: (3) Acute respiratory distress: (4) Tachycardia: (5) Sleep apnea: (6) Metabolic encephalopathy: Plan Reason Critically Ill: 77-year-old female past medical history of hypertension, dyslipidemia presented with the hospital with lethargy was found to have obstructive ureteral stone on the left side. S/p stent. In the ICU for le thargy and encephalopathy Neuro - -- Metabolic encephalopathy Likely secondary to underlying sepsis ABG does not show hypercapnia Ionized calcium mildly decreased. Will give calcium chloride. CT head negative on 07/29/2022 Cardiac - -- Tachycardia Likely from underlying sepsis Respiratory - -- Acute hypoxic respiratory failure CT a chest 07/29/2022 did not show any signs of pulmonary emboli, showed dependent atelectasis bilateral lower lobes. It was motion degraded study Continue with O2 supplementation to keep oxygen saturation 90-92% --TESHA Not compliant with CPAP at home Continue with CPAP/BiPAP while in the hospital GI - -- No active issues RENAL/LYTES - -- HAGMA Likely sec to lactic acidosis ABG 7.33/41/95 on 55% FiO2 CPAP of 12 Monitor -- Monitor BUNs/creatinine - -- Left-sided hydronephrosis S/p stent placement 07/29/2022 ENDO - Continue ICU hypoglycemia protocol HEME - Monitor H&H ID - -- Left-sided hydronephrosis On cefepime Follow-up urine culture and blood culture --Prophylaxis VTE: IPC GI: Pantoprazole Lines: Peripheral Diet: N.p.o. Plan: Strict in and out. Keep the patient n.p.o. If there is any worsening in respiratory status will intubate Tylenol for fever Follow-up TSH Give calcium chloride for mild decreased serum calcium Repeat CMP, procalcitonin and Lactate I have personally spent 55 minutes of critical care time in the direct management of this patient. This is a life/limb threatening event. This includes time spent evaluating patient, direct bedside care, chart review, placing orders, interpretation of diagnostic studies, discussion with consultants, patient, and family members, as well as other required patient management activities. This time is exclusive of all separately billable procedures, and teaching time and separate from and in addition to any other critical care service time. History of Present Illness Attending Physician: Catherine Davila MD History of Present Illness 76-year-old female presented to the hospital with abdominal pain left-sided Past medical history: Hypertension, dyslipidemia, TESHA noncompliant with CPAP, hyperparathyroidism s/p parathyroidectomy, history of primary thyroid cancer Patient was taken to the OR for left-sided hydronephrosis and nephrolithiasis. Patient was lethargic and somnolent. Was transferred to ICU for further management Patient was examined in the PACU. She was on CPAP of 12 saturating 94% on 45% FiO2. Respiratory rate was in the high 20s at heart rate was in the 120s. Temperature was 37.8 Patient was somnolent but opens her eyes to voice. Was moving bilateral upper and lower extremities Patient was still under anesthesia. She got total of 40 mg of propofol. She did get morphine in the ED around 10 AM. Allergies Allergy/AdvReac Type Severity Reaction Status Date / Time cortisone Allergy Intermediate HEART Verified 04/15/22 10:13 PALPITATIONS & RASH Corticosteroids Allergy Unknown Unknown Verified 04/15/22 10:13 (Glucocorticoids) Sulfa (Sulfonamide Allergy Unknown Unknown Verified 04/15/22 10:13 Antibiotics) morphine AdvReac Difficulty Verified 07/29/22 11:34 Breathing Home Medications Medication Instructions Recorded Confirmed Type aspirin 81 mg tablet,delayed 81 mg PO HS 02/12/20 04/15/22 History release (Louisa Low Dose Aspirin) calcium citrate 315 mg-vitamin D3 1 tab PO QAM 02/12/20 07/29/22 History 5 mcg (200 unit) tablet (Calcium Citrate + D) levothyroxine 125 mcg tablet 125 mcg PO DAILYBB 02/12/20 07/29/22 History lisinopril 40 mg tablet 40 mg PO QAM 02/12/20 07/29/22 History metformin 1,000 mg tablet 500 mg PO BID 02/12/20 07/29/22 History omeprazole 20 mg capsule,delayed 20 mg PO DAILYBB 02/12/20 07/29/22 History release amlodipine 5 mg tablet 5 mg PO QAM 08/26/21 07/29/22 History cholecalciferol (vitamin D3) 25 3,000 unit PO DAILY 08/26/21 07/29/22 History mcg (1,000 unit) tablet metoprolol succinate 50 mg 50 mg PO DAILY 08/26/21 07/29/22 History tablet,extended release 24 hr mirabegron 25 mg tablet,extended 25 mg PO QAM 08/26/21 07/29/22 History release 24 hr (Myrbetriq) spironolactone 25 mg tablet 12.5 mg PO QAM 08/26/21 07/29/22 History Patient History Medical History Ascending aorta dilatation History of uterine cancer HLD (hyperlipidemia) HTN (hypertension) Hx of papillary thyroid carcinoma Hyperparathyroidism TESHA (obstructive sleep apnea) Ovarian cancer Renal angiomyolipoma Senile osteoporosis T2DM (type 2 diabetes mellitus) Thyroid cancer Uterine cancer Vitamin D deficiency Surgical History History of appendectomy History of cholecystectomy History of esophagogastroduodenoscopy (EGD) 2020 barretts, gastric polyps, gastritis, repeat 3 years History of hysterectomy 1980s History of parathyroidectomy History of sinus surgery History of thyroidectomy total 2018 History of ureter stent 2019 Hx of colonoscopy 2021 Family History Brother Myocardial infarction Diabetes Coronary heart disease Heart disease Father Diabetes Stroke Aunt Breast cancer Social History Smoking Status: Unknown if ever smoked Tobacco Type: Cigarettes Preferred Language: Yi Communication Ability: Effective Manager Perioperative Required: No Beliefs That Will Affect Care: None marital status: Current Living Situation: Alone current occupational status: employed current occupation: [employer] Feels Safe at Home: Yes during the past year weight has: remained stable Assistive Devices: Cane Review of Systems Review of Systems: Unobtainable due to reduced consciousness Physical Exam Physical Exam: Constitutional: No acute distress HEENT: EOMI, PERRLA Respiratory system: Decreased air entry bilaterally, no wheeze, no rhonchi, positive crackles bilateral lower lobes CVS: S1-S2 positive, no murmurs or gallops, Tachycardia Abdomen: Soft, nontender, nondistended, positive bowel sounds x4, obese Extremities: +2 pulses bilaterally radialis/ dorsalis pedis, no cyanosis, +1 ankle edema bilateral lower extremity Neuro: Somnolent, moving all extremities actively Psych: Unable to assess G/U: Positive Worthy Results & Data Results & Data Vital Signs (Past 12 Hours) Vital Signs Temp Pulse Pulse Resp BP BP Pulse Ox 07/29/22 16:56 119 H 32 H 95 07/29/22 17:15 37.6 C H 120 H 37 H 113/58 L 95 07/29/22 17:00 37.6 C H 118 H 32 H 128/80 94 07/29/22 16:55 37.6 C H 123 H 30 H 145/94 H 95 07/29/22 16:45 37.6 C H 121 H 31 H 127/91 95 07/29/22 16:35 36.4 C L 120 H 31 H 126/75 95 07/29/22 16:32 36.4 C L 118 H 32 H 112/74 97 07/29/22 15:50 143 H 07/29/22 15:50 07/29/22 15:45 138 H 40 H 134/83 96 07/29/22 15:30 36.5 C 141 H 40 H 129/93 94 07/29/22 15:18 139 H 47 H 94 07/29/22 13:46 134 H 07/29/22 12:21 126 H 32 H 156/92 H 92 07/29/22 11:40 94 07/29/22 11:30 144 H 36 H 274/232 H 94 07/29/22 11:00 136 H 33 H 176/106 H 94 07/29/22 10:53 82 L 07/29/22 10:30 99 H 14 165/115 H 92 07/29/22 10:00 91 H 26 H 181/103 H 92 07/29/22 09:59 94 H 07/29/22 09:48 36.9 C 102 H 20 177/100 H 92 O2 Del Method O2 Flow Rate FiO2 07/29/22 16:56 55 07/29/22 17:15 CPAP 55 07/29/22 17:00 CPAP 55 07/29/22 16:55 CPAP 55 07/29/22 16:45 CPAP 55 07/29/22 16:35 CPAP 55 07/29/22 16:32 CPAP 55 07/29/22 15:50 07/29/22 15:50 CPAP 07/29/22 15:45 CPAP 10 07/29/22 15:30 CPAP 07/29/22 15:18 60 07/29/22 13:46 07/29/22 12:21 Oxymask 15 07/29/22 11:40 Oxymask 10 07/29/22 11:30 Oxymask 15 07/29/22 11:00 Nasal Cannula 4 07/29/22 10:53 Nasal Cannula 0 07/29/22 10:30 Room Air 07/29/22 10:00 Room Air 07/29/22 09:59 07/29/22 09:48 Room Air Laboratory Results 07/29/22 10:25 07/29/22 10:25 Coding Level of Care Code 77922 CRITICAL CARE 1ST 30-74M Diagnoses Hydronephrosis with renal and ureteral calculous obstruction N13.2 Acute left flank pain R10.9 Acute respiratory distress R06.03 Tachycardia R00.0 Sleep apnea G47.30 Metabolic encephalopathy G93.41 Time Spent (min) 55
[2022-07-29 20:00] LABS: Thyroid Stimulating Hormone 5.525 uIu/ml (0.300-4.500)
[2022-07-29 20:01] LABS: Albumin Globulin Ratio 1.4 (0.9-2); Albumin Level 3.4 gm/dl (3.4-5.0); Bilirubin,Total 1.7 mg/dl (0.2-1.0); Calcium 6.6 mg/dl (8.6-10.3); Creatinine Clr Calc Pharmacy 53.1 ml/min; Est GFR (African American) 68.2 ml/min; Est GFR (Non-African American) 58.9 ml/min; Globulin 2.4 gm/dl (2.5-4.0); Magnesium 0.7 mg/dl (1.7-2.4); Potassium 2.7 mmol/L (3.5-5.1); Total Protein 5.8 gm/dl (6.0-8.3)
[2022-07-29] MEDS: ACETAMINOPHEN 1,000 MG/100 ML VIAL IV PRN (20:15)
[2022-07-29] MEDS: MAGNESIUM SULFATE / D5W 1 GM/100 ML BAG IV SCH ×3 (20:27→22:36)
[2022-07-29] MEDS: CEFEPIME 2,000 MG in SYRINGE 0 ML IV SCH (20:46)
[2022-07-29 20:51] LABS: T4 Free Thyroxine 1.14 ng/dl (0.61-1.60)
--- NOTE | 2022-07-29 20:55 | Fluoroscopy Report ---
FL retrograde includes kub CLINICAL HISTORY: CYSTO,RETROGRADE COMPARISON STUDY: CT of the abdomen and pelvis performed earlier today. FLUOROSCOPY TIME: 5.9 seconds. Ka, r: 1.95 mGy FLUOROSCOPIC IMAGES: 3 FINDINGS: Fluoroscopy was provided during left retrograde pyelogram with left ureteral stent insertio n. Proximal aspect of the ureteral stent projects over the left renal pelvis. IMPRESSION: Fluoroscopy provided during left retrograde pyelogram and left ureteral stent insertion. ACT 112: Negative or not required by law. Electronically signed by: Abundio Olivo M.D. 07/29/2022 8:54 PM
[2022-07-29] MEDS ORDERED: NSS + 20MEQ KCL 20 MEQ/1,000 ML BAG IV SCH (21:00)
[2022-07-29] MEDS ORDERED: PLASMA-LYTE A 500 ML IV ONE (21:06)
[2022-07-29] MEDS ORDERED: STAT IV STA (21:43)
[2022-07-29] MEDS ORDERED: CALCIUM GLUCONATE 10% 2,000 MG in DEXTROSE 5% 50 ML IV ONE (22:00)
[2022-07-29 23:15] LABS: iSTAT Allen Test Pass; iSTAT Art Bld Gas pCO2 Correct 40 mmHg (35-46); iSTAT Art Bld Gas pH Corrected 7.335 (7.35-7.45); iSTAT Arterial Blood Gas HCO3 21 meg/L (19-24); iSTAT Arterial Blood Gas pCO2 40 mmHg (35-46); iSTAT Arterial Blood Gas pH 7.34 (7.35-7.45); iSTAT Arterial Blood Gas pO2 79 mmHg (80-95); iSTAT Arterial Blood Gas pO2 C 79; iSTAT Carbon Dioxide 22 mmol/L (24-31); iSTAT FiO2 40 %; iSTAT Hematocrit 40 % (37-47); iSTAT Hemoglobin 13.6 g/dl (12.0-16.0); iSTAT Potassium 2.2 mmol/L (3.3-5.0); iSTAT Site R Radial; iSTAT Sodium 140 mmol/L (135-144)
[2022-07-29] MEDS ORDERED: STAT IV Infusion **Titration per Protocol STA (23:42)
[2022-07-30] MEDS: NOREPINEPHRINE/D5W 4 MG/250 ML PLCT IV SCH ×2 (00:03→16:59)
[2022-07-30] MEDS: MAGNESIUM SULFATE / D5W 1 GM/100 ML BAG IV SCH ×2 (00:17→02:00)
[2022-07-30] MEDS: PLASMA-LYTE A 1,000 ML IV SCH ×2 (01:15→19:09)
[2022-07-30] MEDS: POTASSIUM CHLORIDE / WTR 10 MEQ/100 ML PLCT IV SCH ×7 (04:23→12:54)
[2022-07-30 05:46] LABS: INR 1.3 (0.9-1.1); Prothrombin Time 13.2 Seconds (9.0-12.0)
[2022-07-30 06:02] LABS: Calcium 7.1 mg/dl (8.6-10.3); Creatinine Clr Calc Pharmacy 58.8 ml/min; Est GFR (African American) 77.2 ml/min; Est GFR (Non-African American) 66.6 ml/min; Magnesium 2.2 mg/dl (1.7-2.4); Potassium 2.5 mmol/L (3.5-5.1)
[2022-07-30] MEDS ORDERED: POTASSIUM CHLORIDE 20 MEQ/15 ML UDC PO STA ×2 (06:03→18:27)
[2022-07-30 06:04] LABS: Hematocrit (blood only) 41.2 % (37.0-47.0); Hemoglobin 13.4 g/dl (12.0-16.0); Mean Corpuscular Hemoglobin 27.5 pg (25.0-34.0); Mean Corpuscular Hgb Conc 32.5 g/dL (32.0-36.0); Mean Corpuscular Volume 84.6 fL (80.0-100.0); Mean Platelet Volume 11.7 fL (9.4-12.4); Platelet Count 109 K/uL (130-400); RDW Coefficient of Variation 12.9 % (11.5-14.5); RDW Standard Deviation 39.5 fL (36.4-46.3); Red Blood Count 4.87 M/uL (4.20-5.40); White Blood Count 23.43 K/ul (4.8-10.8)
[2022-07-30 06:05] LABS: ANC (manual) 22.26 K/uL (1.4-6.5); Dohle Bodies 1+; Echinocytes 2+; Metamyelocytes # (manual) 0.94 K/uL (0-0); Metamyelocytes % (manual) 4 %; Monocytes # (manual) 0.23 K/uL (0.11-0.59); Monocytes % (manual) 1 %; Neutrophils # (manual) 22.26 K/uL (1.40-6.50); Neutrophils % (manual) 95 %; Toxic Vacuolation 1+
[2022-07-30] MEDS: PANTOprazole 40 MG TAB PO SCH (06:36)
[2022-07-30] MEDS: LEVOTHYROXINE SODIUM 125 MCG TABLET PO SCH (06:36)
[2022-07-30] MEDS ORDERED: ICU Protocol for HYPERglycemia SCH (07:30)
[2022-07-30] MEDS ORDERED: POTASSIUM CHLORIDE / WTR 10 MEQ/100 ML PLCT IV SCH (07:45)
[2022-07-30] MEDS ORDERED: GLUCOSE 40% GEL 15 GM TUBE PO PRN (08:28)
[2022-07-30] MEDS ORDERED: CARBOHYDRATES FOR HYPOGLYCEMIA PO PRN (08:28)
[2022-07-30] MEDS ORDERED: DEXTROSE 50% 50 ML SYRINGE IV PRN (08:28)
[2022-07-30] MEDS ORDERED: GLUCOSE 10 TAB/TUBE PO PRN (08:28)
[2022-07-30] MEDS ORDERED: GLUCAGON FOR INJ 1 MG VIAL SQ PRN (08:28)
[2022-07-30] MEDS: CALCIUM 600MG + VIT D 400 IU TAB PO SCH (08:57)
[2022-07-30] MEDS: CHOLECALCIFEROL 1,000 UNITS 25 MCG TAB PO SCH (08:58)
[2022-07-30] MEDS: CEFEPIME 2,000 MG in SYRINGE 0 ML IV SCH ×2 (08:59→20:13)
[2022-07-30] MEDS: MIRABEGRON ER 25 MG TAB PO SCH (09:00)
[2022-07-30] MEDS ORDERED: amLODIPine BESYLATE 5 MG TAB PO SCH (09:00)
[2022-07-30] MEDS ORDERED: METOPROLOL SUCC 50MG EXT REL TAB PO SCH (09:00)
[2022-07-30] MEDS ORDERED: lisinopril 40 MG TAB PO SCH (09:00)
[2022-07-30] MEDS ORDERED: SPIRONOLACTONE 12.5 MG TAB PO SCH (09:00)
[2022-07-30 09:04] LABS: Albumin Level 3.6 gm/dl (3.4-5.0); Bilirubin Direct 0.6 mg/dl (0-0.2); Bilirubin,Total 2.2 mg/dl (0.2-1.0); Phosphorus 2.7 mg/dl (2.5-4.9); Total Protein 5.8 gm/dl (6.0-8.3)
[2022-07-30] MEDS: POTASSIUM CHLORIDE 20 MEQ/15 ML UDC PO SCH ×2 (09:07→20:13)
[2022-07-30] MEDS: HEPARIN SOD 5,000 UNIT/0.5 ML VIAL SQ SCH ×2 (09:18→20:13)
--- NOTE | 2022-07-30 09:28 | Critical Care Progress Note ---
Date of Service July 30, 2022 Assessment & Plan (1) Hydronephrosis with renal and ureteral calculous obstruction: (2) Acute left flank pain: (3) Acute respiratory distress: (4) Tachycardia: (5) Sleep apnea: (6) Metabolic encephalopathy: Plan Reason Critically Ill: 77-year-old female past medical history of hypertension, dyslipidemia presented with the hospital with lethargy was found to have obstructive ureteral stone on the left side. S/p stent. In the ICU for letharg y and encephalopathy Neuro - -- Metabolic encephalopathy --> improved Likely secondary to underlying sepsis ABG does not show hypercapnia Ionized calcium mildly decreased. S/p calcium chloride CT head negative on 07/29/2022 Cardiac - -- Tachycardia Likely from underlying sepsis Respiratory - -- Acute hypoxic respiratory failure CT a chest 07/29/2022 did not show any signs of pulmonary emboli, showed dependent atelectasis bilateral lower lobes. It was motion degraded study Continue with O2 supplementation to keep oxygen saturation 90-92% --TESHA Not compliant with CPAP at home Continue with CPAP/BiPAP while in the hospital GI - -- No active issues RENAL/LYTES - -- S/p HAGMA Likely sec to lactic acidosis ABG 7.33/41/95 on 55% FiO2 CPAP of 12 Monitor -- Monitor BUNs/creatinine - -- Left-sided hydronephrosis S/p stent placement 07/29/2022 ENDO - --Hypothyroidism TSH 5.5 with normal T4 Continue with Synthroid Continue ICU hypoglycemia protocol HEME - --Thrombocytopenia Likely from sepsis Continue to trend Monitor H&H ID - -- Left-sided hydronephrosis Procalcitonin 108 On cefepime Follow-up urine culture and blood culture --Prophylaxis VTE: Heparin GI: Pantoprazole Lines: Peripheral Diet: Start clear liquid and advance as tolerated Plan: In/out: Positive for liters, urine output 950 mL. Patient with severe hypokalemia, being replaced Repeat BMP at 3 PM DC IV fluids to 75 mill per hour Try to titrate off Levophed Calcium will be replaced I have personally spent 37 minutes of critical care time in the direct management of this patient. This is a life/limb threatening event. This includes time spent evaluating patient, direct bedside care, chart review, placing orders, interpretation of diagnostic studies, discussion with consultants, patient, and family members, as well as other required patient management activities. This time is exclusive of all separately billable procedures, and teaching time and separate from and in addition to any other critical care service time. Admission and Anticipated Discharge Date Admission Date: July 29, 2022 Subjective Patient seen and examined at bedside. No acute distress, no adverse events overnight She was on 0.04 of Levophed at the time of examination. Map was in the low 80s. I stop the Levophed. Says that she is feeling much better. She does not remember anything from yesterday. Denies any headache, no chest pain, no shortness of breath No nausea or vomiting. Asking for something to eat. Did complain of loose stools last night. Nonbloody Review of Systems Review of Systems: All systems reviewed & are unremarkable except as noted in Subjective Physical Exam Physical Exam: Constitutional: No acute distress HEENT: EOMI, PERRLA Respiratory system: Decreased air entry bilaterally, no wheeze, no rhonchi, mild crackles bilateral lower lobes CVS: S1-S2 positive, no murmurs or gallops, Tachycardia Abdomen: Soft, nontender, nondistended, positive bowel sounds x4, obese Extremities: +2 pulses bilaterally radialis/ dorsalis pedis, no cyanosis, +1 ankle edema bilateral lower extremity Neuro: Awake alert oriented x3 Psych: Normal mood and affect G/U: Positive Worthy Skin: no rashes, warm and dry Lymphatic: no cervical or axillary lymphadenopathy Results & Data Results & Data Vital Signs (Past 12 Hours) Vital Signs Temp Pulse Resp BP Pulse Ox O2 Del Method O2 Flow Rate 07/30/22 07:55 108 H 28 H 95 07/30/22 06:00 98 H 25 H 123/72 95 07/30/22 05:50 97 H 24 112/65 93 07/30/22 05:40 96 H 24 113/63 94 07/30/22 05:30 94 H 23 112/68 93 07/30/22 05:20 94 H 23 106/68 93 07/30/22 05:10 93 H 23 112/67 93 07/30/22 05:00 37.1 C 07/30/22 05:00 91 H 25 H 122/68 94 07/30/22 04:50 98 H 27 H 113/66 94 07/30/22 04:40 103 H 28 H 121/69 94 07/30/22 04:30 102 H 29 H 125/73 94 07/30/22 04:20 99 H 54 H 115/65 94 07/30/22 04:10 97 H 32 H 114/67 94 07/30/22 04:00 96 H 29 H 112/73 93 07/30/22 03:50 96 H 34 H 114/70 93 07/30/22 00:00 Nasal Cannula 4 07/30/22 00:00 37 C 07/30/22 03:40 99 H 30 H 111/69 93 07/30/22 03:30 97 H 33 H 108/66 93 07/30/22 03:20 100 H 38 H 105/69 93 07/30/22 03:10 108 H 31 H 131/74 92 07/30/22 03:00 114 H 20 135/69 87 L 07/30/22 02:50 117 H 38 H 139/77 86 L 07/30/22 02:40 108 H 30 H 117/65 94 07/30/22 02:30 116 H 24 120/59 L 90 07/30/22 02:20 112 H 17 130/75 92 07/30/22 02:10 106 H 18 116/65 92 07/30/22 02:00 104 H 32 H 103/64 92 07/30/22 01:50 102 H 19 124/47 L 90 07/30/22 01:40 111 H 15 110/66 92 07/30/22 03:42 102 H 27 H 94 07/30/22 01:30 104 H 14 114/73 93 07/30/22 01:20 104 H 29 H 140/71 92 07/30/22 01:10 105 H 47 H 106/70 92 07/30/22 01:00 102 H 27 H 100/51 L 92 07/30/22 00:50 104 H 30 H 96/46 L 92 07/30/22 00:40 103 H 29 H 100/57 L 92 07/30/22 00:30 108 H 21 94/63 L 94 07/30/22 00:20 105 H 36 H 120/60 94 07/30/22 00:10 109 H 18 99/58 L 88 L 07/30/22 00:00 103 H 29 H 107/51 L 92 07/29/22 23:42 103 H 07/29/22 23:21 94 H 25 H 93 07/29/22 22:00 98 H 95 07/29/22 22:00 89/51 L 07/29/22 21:39 86/54 L 07/29/22 21:39 98 H 93 07/29/22 21:34 95 H 27 H 94 07/29/22 21:34 96/53 L 07/29/22 21:30 96 H 25 H 07/29/22 21:30 70/48 L FiO2 07/30/22 07:55 40 07/30/22 06:00 07/30/22 05:50 07/30/22 05:40 07/30/22 05:30 07/30/22 05:20 07/30/22 05:10 07/30/22 05:00 07/30/22 05:00 07/30/22 04:50 07/30/22 04:40 07/30/22 04:30 07/30/22 04:20 07/30/22 04:10 07/30/22 04:00 07/30/22 03:50 07/30/22 00:00 07/30/22 00:00 07/30/22 03:40 07/30/22 03:30 07/30/22 03:20 07/30/22 03:10 07/30/22 03:00 07/30/22 02:50 07/30/22 02:40 07/30/22 02:30 07/30/22 02:20 07/30/22 02:10 07/30/22 02:00 07/30/22 01:50 07/30/22 01:40 07/30/22 03:42 40 07/30/22 01:30 07/30/22 01:20 07/30/22 01:10 07/30/22 01:00 07/30/22 00:50 07/30/22 00:40 07/30/22 00:30 07/30/22 00:20 07/30/22 00:10 07/30/22 00:00 07/29/22 23:42 07/29/22 23:21 40 07/29/22 22:00 07/29/22 22:00 07/29/22 21:39 07/29/22 21:39 07/29/22 21:34 07/29/22 21:34 07/29/22 21:30 07/29/22 21:30 Laboratory Results 07/30/22 04:55 07/30/22 04:55 Coding Level of Care Code 74408 CRITICAL CARE 1ST 30-74M Diagnoses Hydronephrosis with renal and ureteral calculous obstruction N13.2 Acute left flank pain R10.9 Acute respiratory distress R06.03 Tachycardia R00.0 Sleep apnea G47.30 Metabolic encephalopathy G93.41 Time Spent (min) 37
--- NOTE | 2022-07-30 10:06 | Urology Progress Note ---
Date of Service July 30, 2022 Assessment & Plan (1) Obstruction of left ureteropelvic junction (UPJ) due to stone: (2) Sepsis: Plan: - Pt POD#1 s/p emergent cystoscopy and left ureteral stent placement with Dr. Suarez - She is awake and interactive today, subjectively feeling better - Remains tachycardic and tachypneic - Afebrile overnight, Tmax 38.0 (07/29 at 2000) - Lab work reviewed - creatinine 0.84, WBC 23.43 - Urine culture showing pin point growth, reincubating - Blood cultures collected today are pending - Continue broad-spectrum antibiotics and narrow per sensitivity data when available - Tolerating left ureteral stent without bother - Continue supportive care and antibiotics per hospital medicine - Can remove Worthy catheter prior to discharge - We discussed need for stone treatment after acute infection has been treated - Expected clinical course reviewed, all questions answered - Will arrange outpatient follow-up with our service - will sign off Admission and Anticipated Discharge Date Admission Date: July 29, 2022 Supervising Physician Co-Signing Physician Notes Discussed patient with DANIEL. Agree with plan. Subjective Patient seen and examined this morning. She is awake and interactive today. She reports that she does not remember anything from yesterday. She is feeling better today. She denies flank or abdominal pain. Worthy patent and draining yellow urine. No nausea or vomiting. No fever or chills. Review of Systems Constitutional: as per Subjective / HPI Gastrointestinal: as per Subjective / HPI Genitourinary: as per Subjective / HPI Physical Exam Constitutional: well developed and well nourished; no acute distress Respiratory: + tachypneic Cardiovascular: Rate/Rhythm: + tachycardic Extremities: no pedal edema Gastrointestinal (Abdomen): Inspection/Auscultation: abdomen normal to inspection; abdomen not distended Percussion/Palpation: abdomen soft; abdomen nontender and no guarding Musculoskeletal: Head/Neck/Chest: normocephalic and head atraumatic Neurologic: moves all extremities and awake Psychiatric: Orientation: oriented x 3 Genitourinary: Worthy patent and draining yellow urine Results & Data Vital Signs (Past 12 Hours) Vital Signs Temp Pulse Resp BP Pulse Ox O2 Del Method O2 Flow Rate 07/30/22 07:55 108 H 28 H 95 07/30/22 06:00 98 H 25 H 123/72 95 07/30/22 05:50 97 H 24 112/65 93 07/30/22 05:40 96 H 24 113/63 94 07/30/22 05:30 94 H 23 112/68 93 07/30/22 05:20 94 H 23 106/68 93 07/30/22 05:10 93 H 23 112/67 93 07/30/22 05:00 37.1 C 07/30/22 05:00 91 H 25 H 122/68 94 07/30/22 04:50 98 H 27 H 113/66 94 07/30/22 04:40 103 H 28 H 121/69 94 07/30/22 04:30 102 H 29 H 125/73 94 07/30/22 04:20 99 H 54 H 115/65 94 07/30/22 04:10 97 H 32 H 114/67 94 07/30/22 04:00 96 H 29 H 112/73 93 07/30/22 03:50 96 H 34 H 114/70 93 07/30/22 00:00 Nasal Cannula 4 07/30/22 00:00 37 C 07/30/22 03:40 99 H 30 H 111/69 93 07/30/22 03:30 97 H 33 H 108/66 93 07/30/22 03:20 100 H 38 H 105/69 93 07/30/22 03:10 108 H 31 H 131/74 92 07/30/22 03:00 114 H 20 135/69 87 L 07/30/22 02:50 117 H 38 H 139/77 86 L 07/30/22 02:40 108 H 30 H 117/65 94 07/30/22 02:30 116 H 24 120/59 L 90 07/30/22 02:20 112 H 17 130/75 92 07/30/22 02:10 106 H 18 116/65 92 07/30/22 02:00 104 H 32 H 103/64 92 07/30/22 01:50 102 H 19 124/47 L 90 07/30/22 01:40 111 H 15 110/66 92 07/30/22 03:42 102 H 27 H 94 07/30/22 01:30 104 H 14 114/73 93 07/30/22 01:20 104 H 29 H 140/71 92 07/30/22 01:10 105 H 47 H 106/70 92 07/30/22 01:00 102 H 27 H 100/51 L 92 07/30/22 00:50 104 H 30 H 96/46 L 92 07/30/22 00:40 103 H 29 H 100/57 L 92 07/30/22 00:30 108 H 21 94/63 L 94 07/30/22 00:20 105 H 36 H 120/60 94 07/30/22 00:10 109 H 18 99/58 L 88 L 07/30/22 00:00 103 H 29 H 107/51 L 92 07/29/22 23:42 103 H 07/29/22 23:21 94 H 25 H 93 FiO2 07/30/22 07:55 40 07/30/22 06:00 07/30/22 05:50 07/30/22 05:40 07/30/22 05:30 07/30/22 05:20 07/30/22 05:10 07/30/22 05:00 07/30/22 05:00 07/30/22 04:50 07/30/22 04:40 07/30/22 04:30 07/30/22 04:20 07/30/22 04:10 07/30/22 04:00 07/30/22 03:50 07/30/22 00:00 07/30/22 00:00 07/30/22 03:40 07/30/22 03:30 07/30/22 03:20 07/30/22 03:10 07/30/22 03:00 07/30/22 02:50 07/30/22 02:40 07/30/22 02:30 07/30/22 02:20 07/30/22 02:10 07/30/22 02:00 07/30/22 01:50 07/30/22 01:40 07/30/22 03:42 40 07/30/22 01:30 07/30/22 01:20 07/30/22 01:10 07/30/22 01:00 07/30/22 00:50 07/30/22 00:40 07/30/22 00:30 07/30/22 00:20 07/30/22 00:10 07/30/22 00:00 07/29/22 23:42 07/29/22 23:21 40 PG Care Time/CCT Total # of Minutes Spent Total Time Spent with Patient: Total time spent is greater than 50% in coordination of care (as documented) at patient's floor/unit and/or counseling patient: Coding Level of Care Code 58070 SUB INP/OBS CARE 05/12MIN Diagnoses Obstruction of left ureteropelvic junction (UPJ) due to stone N20.1 Sepsis A41.9
[2022-07-30] MEDS ORDERED: CALCIUM GLUCONATE 10% 1,000 MG in SODIUM CHLORIDE 0.9% 50 ML IV ONE (10:45)
[2022-07-30] MEDS: INSULIN ASPART PER UNIT CHARGE SC SCH ×3 (11:56→20:14)
[2022-07-30] MEDS: ONDANSETRON INJ 2 MG/ML 2 ML VIAL IV PRN (11:56)
--- NOTE | 2022-07-30 13:07 | Hospitalist Progress Note ---
Date of Service July 30, 2022 Assessment & Plan (1) Sepsis: Plan: Septic shock secondary to obstructive uropathy with infection Has been on intravenous norepinephrine to maintain blood pressure Received intravenous Zosyn and 1 dose of vancomycin and has been on cefepime now Urine was suggestive of infection, blood and urine cultures are pending Appreciate food service specialist input and recommendation Acute metabolic and cephalopathy Likely secondary to sepsis Allergic reaction to morphine is considered-difficulty with breathing with morphine as noted from 07/29/2022 Received Benadryl and also has been getting nebulized bronchodilator Electrolyte imbalance Severe hypokalemia and hypocalcemia Will be replaced and monitor (2) Obstruction of left ureteropelvic junction (UPJ) due to stone: Plan: Came in with left-sided abdominal pain and noted to have obstructive stone Developed chills in the emergency room and required urgent urologic procedure Status post cystoscopy, left retrograde pyelogram and left ureteric stent placement on 07/29/2022-required ICU transfer following the procedure from PACU Appreciate urology input and recommendation Patient is free of any pain but remains tachycardic in the emergency room and has been requiring CPAP (3) HLD (hyperlipidemia): (4) TESHA (obstructive sleep apnea): Plan: Complicating respiratory symptoms with infection and sepsis Has been on CPAP to maintain saturation Appreciate input from food service specialist (5) HTN (hypertension): Plan: Remains stable on norepinephrine (6) T2DM (type 2 diabetes mellitus): (7) Acute metabolic encephalopathy: Plan: As above (8) Allergy to morphine: Plan Acute hypoxic respiratory failure -Underlying TESHA, likely obesity hypoventilation syndrome. Maintain O2sat > 90% Dispo- Admit to PCU DVT ppx- Start SQ heparin if no plans for cystoscopy today Admission and Anticipated Discharge Date Admission Date: July 29, 2022 Subjective 07/30/2022 The patient was seen and examined in ICU She is very anxious and shaky but denies any significant pain Her abdominal pain is resolved following the procedure Denies any other significant symptoms Review of Systems Review of Systems: All systems reviewed and are unremarkable except as noted below Respiratory: Moderate shortness of breath at rest Cardiovascular: Additional Comments: Palpitation Gastrointestinal: No significant abdominal pain Physical Exam Physical Exam: Lying in bed very anxious with moderate respiratory distress Constitutional: well developed, well nourished, + ill appearing and + obese Eyes: PERRL, conjunctivae normal, anicteric sclerae ENMT: external ear and nose normal, oropharynx normal Neck: trachea midline, no thyromegaly Respiratory: + respiratory distress Auscultation: + diminished lung sounds and + crackles (Minimal crackles bibasally) Cardiovascular: Rate/Rhythm: regular rate, regular rhythm and + tachycardic Heart Sounds: normal S1 and normal S2; no murmur Extremities: + edema (Trace edema bilaterally) Gastrointestinal (Abdomen): Inspection/Auscultation: + abdomen distended and normal bowel sounds Percussion/Palpation: + abdomen tender (Mildly tender left renal angle) and abdomen soft Musculoskeletal: No acute arthritis involving any joint Neurologic: Alert and awake. Very anxious Lymphatic: no cervical or axillary lymphadenopathy Results & Data Results & Data Vital Signs (Past 12 Hours) Vital Signs Temp Pulse Resp BP Pulse Ox O2 Del Method FiO2 07/30/22 12:00 37.1 C 07/30/22 12:41 122 H 34 H 94 07/30/22 12:41 147/85 H 07/30/22 12:31 133/89 07/30/22 12:31 121 H 28 H 90 07/30/22 12:30 120 H 27 H 90 07/30/22 12:21 116 H 33 H 97 07/30/22 12:21 152/74 H 07/30/22 12:11 165/102 H 07/30/22 12:00 119 H 33 H 97 07/30/22 12:00 157/83 H 07/30/22 11:50 143/72 H 07/30/22 11:50 118 H 30 H 93 07/30/22 11:40 135/81 07/30/22 11:40 113 H 20 98 07/30/22 11:31 112 H 27 H 96 07/30/22 11:31 100/67 07/30/22 11:30 113 H 23 95 07/30/22 11:20 130/71 07/30/22 11:20 115 H 29 H 97 07/30/22 11:10 132/61 07/30/22 11:10 113 H 29 H 98 07/30/22 11:00 116 H 27 H 91 07/30/22 11:00 123/71 07/30/22 10:50 124/67 07/30/22 10:50 112 H 28 H 96 07/30/22 10:40 125/65 07/30/22 10:40 112 H 28 H 98 07/30/22 10:31 113 H 29 H 99 07/30/22 10:31 129/73 07/30/22 10:20 108/82 07/30/22 10:20 118 H 34 H 94 07/30/22 10:10 120/69 07/30/22 10:10 118 H 38 H 92 07/30/22 10:00 120 H 30 H 96 07/30/22 10:00 127/68 07/30/22 09:50 129/74 07/30/22 09:50 114 H 36 H 97 07/30/22 09:40 119 H 37 H 93 07/30/22 09:40 149/76 H 07/30/22 09:30 117 H 35 H 95 07/30/22 09:30 127/87 07/30/22 09:21 120 H 31 H 91 07/30/22 09:21 150/81 H 07/30/22 09:10 121/69 07/30/22 09:10 108 H 28 H 95 07/30/22 09:00 106 H 26 H 100 07/30/22 09:00 113/64 07/30/22 08:50 122/68 07/30/22 08:50 104 H 25 H 93 07/30/22 08:40 120/68 07/30/22 08:40 108 H 28 H 95 07/30/22 08:30 117/68 07/30/22 08:30 107 H 30 H 93 07/30/22 08:20 109 H 30 H 96 07/30/22 08:20 122/71 07/30/22 08:10 106 H 26 H 96 07/30/22 08:10 114/71 07/30/22 08:00 113 H 25 H 98 07/30/22 08:00 130/68 07/30/22 07:50 108 H 25 H 96 07/30/22 07:50 115/66 07/30/22 07:40 129/71 07/30/22 07:40 108 H 29 H 98 07/30/22 07:31 124/61 07/30/22 07:31 109 H 28 H 93 07/30/22 07:21 113 H 32 H 97 07/30/22 07:21 127/79 07/30/22 07:11 114 H 31 H 94 07/30/22 07:11 137/67 07/30/22 07:01 119 H 46 H 93 07/30/22 07:01 156/88 H 07/30/22 08:00 CPAP 40 07/30/22 10:28 115 H 33 H 95 40 07/30/22 07:55 108 H 28 H 95 40 07/30/22 06:00 98 H 25 H 123/72 95 07/30/22 05:50 97 H 24 112/65 93 07/30/22 05:40 96 H 24 113/63 94 07/30/22 05:30 94 H 23 112/68 93 07/30/22 05:20 94 H 23 106/68 93 07/30/22 05:10 93 H 23 112/67 93 07/30/22 05:00 37.1 C 07/30/22 05:00 91 H 25 H 122/68 94 07/30/22 04:50 98 H 27 H 113/66 94 07/30/22 04:40 103 H 28 H 121/69 94 07/30/22 04:30 102 H 29 H 125/73 94 07/30/22 04:20 99 H 54 H 115/65 94 07/30/22 04:10 97 H 32 H 114/67 94 07/30/22 04:00 96 H 29 H 112/73 93 07/30/22 03:50 96 H 34 H 114/70 93 07/30/22 03:40 99 H 30 H 111/69 93 07/30/22 03:30 97 H 33 H 108/66 93 07/30/22 03:20 100 H 38 H 105/69 93 07/30/22 03:10 108 H 31 H 131/74 92 07/30/22 03:00 114 H 20 135/69 87 L 07/30/22 02:50 117 H 38 H 139/77 86 L 07/30/22 02:40 108 H 30 H 117/65 94 07/30/22 02:30 116 H 24 120/59 L 90 07/30/22 02:20 112 H 17 130/75 92 07/30/22 02:10 106 H 18 116/65 92 07/30/22 02:00 104 H 32 H 103/64 92 07/30/22 01:50 102 H 19 124/47 L 90 07/30/22 01:40 111 H 15 110/66 92 07/30/22 03:42 102 H 27 H 94 40 07/30/22 01:30 104 H 14 114/73 93 07/30/22 01:20 104 H 29 H 140/71 92 07/30/22 01:10 105 H 47 H 106/70 92 Laboratory Results Short CBC 07/30/22 Range/Units 04:55 WBC 23.43 H D (4.8-10.8) K/ul Hgb 13.4 (12.0-16.0) g/dl Hct 41.2 (37.0-47.0) % Plt Count 109 L (130-400) K/uL BMP 07/29/22 07/30/22 19:18 04:55 Sodium 140 139 Potassium 2.7 L 2.5 L* Chloride 107 105 Carbon Dioxide 20 L 23 BUN 13 16 Creatinine 0.93 D 0.84 Glucose 218 H 232 H Calcium 6.6 L 7.1 L Liver Function 07/29/22 07/30/22 Range/Units 19:18 07:56 Total Bilirubin 1.7 H 2.2 H (0.2-1.0) mg/dl Direct Bilirubin 0.6 H (0-0.2) mg/dl AST 55 H 40 H (13-39) U/L ALT 26 24 (7-52) U/L Alkaline Phosphatase 87 78 (34-104) U/L Albumin 3.4 3.6 (3.4-5.0) gm/dl Medications Administered Current Inpatient Medications Acetaminophen (Acetaminophen 325 Mg Tab) 650 mg PO Q4H PRN PRN Reason: Pain or Fever Stop: 08/28/22 15:27 Calcium/Vitamin D (Calcium 600mg + Vit D 400 Iu Tab) 1 tab PO QAM [facility] Stop: 08/29/22 08:59 Last Admin: 07/30/22 08:57 Dose: 1 tab Dextrose (Dextrose 50% 50 Ml Syringe) 25 - 50 ml IV UD PRN; Protocol PRN Reason: Hypoglycemia Protocol Stop: 08/29/22 08:27 Glucagon (Glucagon For Inj 1 Mg Vial) 1 mg SQ UD PRN; Protocol PRN Reason: Hypoglycemia Protocol Stop: 08/29/22 08:27 Glucose (Glucose 10 Tab/Tube) 4 - 8 tab PO UD PRN; Protocol PRN Reason: Hypoglycemia Treatment Stop: 08/29/22 08:27 Glucose (Glucose 40% Gel 15 Gm Tube) 15 - 30 gm PO UD PRN; Protocol PRN Reason: Hypoglycemia Protocol Stop: 08/29/22 08:27 Heparin Sodium (Porcine) (Heparin Sod 5,000 Unit/0.5 Ml Vial) 5,000 units SQ Q12 [facility] Stop: 08/29/22 08:59 Last Admin: 07/30/22 09:18 Dose: 5,000 units Cefepime HCl 2,000 mg/ Syringe 20 mls @ 5 mls/min IV Q12 [facility]ST[facility]; Protocol Stop: 08/08/22 20:59 Last Admin: 07/30/22 08:59 Dose: 5 mls/min Acetaminophen (Ofirmev) 1,000 mg in 100 mls @ 400 mls/hr IV Q8H PRN PRN Reason: Fever Stop: 08/01/22 18:13 Last Infusion: 07/29/22 20:32 Dose: Infused Norepinephrine Bitartrate (Levophed/D5w) 4 mg in 250 mls @ 16.894 mls/hr IV .[id number] [facility]; Protocol Stop: 08/28/22 23:44 Last Titration: 07/30/22 08:45 Dose: 0 mcg/kg/min, 0 mls/hr Parenteral Electrolytes (Plasma-Lyte A Ph 7.4) 1,000 mls @ 75 mls/hr IV .[id number] [facility] Stop: 08/29/22 00:59 Last Infusion: 07/30/22 09:01 Dose: 75 mls/hr Insulin Aspart (Insulin Aspart Per Unit Charge) 0 units SC ACHS [facility] Stop: 08/29/22 11:29 Last Admin: 07/30/22 11:56 Dose: 1 units Ketorolac Tromethamine (Ketorolac Tromethamine 15 Mg/Ml Vial) 15 mg IV Q6H PRN PRN Reason: Pain Stop: 08/03/22 16:19 Levothyroxine Sodium (Levothyroxine Sodium 125 Mcg Tablet) 125 mcg PO DAILYBB [facility] Stop: 08/29/22 06:29 Last Admin: 07/30/22 06:36 Dose: 125 mcg Magnesium Hydroxide (Magnesium Hydroxide Susp 30 Ml Udc) 30 ml PO Q12H PRN PRN Reason: Constipation Stop: 08/28/22 15:27 Mirabegron (Mirabegron Er 25 Mg Tab) 25 mg PO QAM [facility] Stop: 08/29/22 08:59 Last Admin: 07/30/22 09:00 Dose: 25 mg Miscellaneous (Carbohydrates For Hypoglycemia ) 15 - 30 gm PO UD PRN PRN Reason: Hypoglycemia Protocol Stop: 08/29/22 08:27 Ondansetron HCl (Ondansetron Inj 2 Mg/Ml 2 Ml Vial) 4 mg IV Q6H PRN PRN Reason: Nausea Stop: 08/28/22 15:27 Last Admin: 07/30/22 11:56 Dose: 4 mg Pantoprazole Sodium (Pantoprazole 40 Mg Tab) 40 mg PO DAILYBB [facility] Stop: 08/29/22 06:29 Last Admin: 07/30/22 06:36 Dose: 40 mg Polyethylene Glycol (Polyethylene (Miralax) 17 Gm Pack) 17 gm PO DAILY PRN PRN Reason: Constipation Stop: 08/28/22 15:27 Potassium Chloride (Potassium Chloride 20 Meq/15 Ml Udc) 20 meq PO BID [facility] Stop: 07/30/22 21:01 Last Admin: 07/30/22 09:07 Dose: Not Given Vitamin D (Cholecalciferol 1,000 Units 25 Mcg Tab) 3,000 units PO DAILY [facility] Stop: 08/29/22 08:59 Last Admin: 07/30/22 08:58 Dose: 3,000 units (6) T2DM (type 2 diabetes mellitus) Diabetes mellitus complication status: without complication 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
[2022-07-30] MEDS ORDERED: METOPROLOL SUCC 50MG EXT REL TAB PO STA (13:31)
[2022-07-30 17:08] LABS: BUN Creatinine Ratio 21.7 (10-20); Calcium 7.4 mg/dl (8.6-10.3); Creatinine Clr Calc Pharmacy 71.6 ml/min; Est GFR (African American) 96.6 ml/min; Est GFR (Non-African American) 83.4 ml/min; Magnesium 2.1 mg/dl (1.7-2.4); Phosphorus 2.7 mg/dl (2.5-4.9); Potassium 3.6 mmol/L (3.5-5.1)
[2022-07-30] MEDS: KETOROLAC TROMETHAMINE 15 MG/ML VIAL IV PRN (19:53)
--- NOTE | 2022-07-30 21:44 | Electrocardiogram Report ---
Test Reason : Blood Pressure : / mmHG Vent. Rate : 095 BPM Atrial Rate : 095 BPM P-R Int : 166 ms QRS Dur : 088 ms QT Int : 350 ms P-R-T Axes : 052 -06 178 degrees QTc Int : 439 ms Normal sinus rhythm Inferior infarct , age undetermined Possible Anterior infarct , age undetermined Nonspecific T wave abnormality Abnormal ECG When compared with ECG of 27-AUG-2021 05:14, Nonspecific T wave abnormality is now Present Confirmed by Geovani Snow ([id number]) on 07/30/2022 9:44:36 PM Referred By: Gordo Clark Confirmed By:Geovani Snow
--- NOTE | 2022-07-30 22:14 | Electrocardiogram Report ---
Test Reason : Blood Pressure : / mmHG Vent. Rate : 144 BPM Atrial Rate : 144 BPM P-R Int : 136 ms QRS Dur : 078 ms QT Int : 260 ms P-R-T Axes : 049 000 166 degrees QTc Int : 402 ms Sinus tachycardia Possible Anterior infarct (cited on or before 29-JUL-2022) Nonspecific T wave abnormality Abnormal ECG When compared with ECG of 29-JUL-2022 09:55, Vent. rate has increased BY 49 BPM Confirmed by Geovani Snow ([id number] on 07/30/2022 10:14:35 PM Referred By: Gordo Clark Confirmed By:Geovani Snow
[2022-07-30] MEDS: ACETAMINOPHEN 1,000 MG/100 ML VIAL IV PRN (23:19)
[2022-07-31 05:22] LABS: BUN Creatinine Ratio 25.7 (10-20); Calcium 7.5 mg/dl (8.6-10.3); Creatinine Clr Calc Pharmacy 70.6 ml/min; Est GFR (African American) 96.2 ml/min; Magnesium 2.3 mg/dl (1.7-2.4); Potassium 3.7 mmol/L (3.5-5.1)
[2022-07-31 05:41] LABS: INR 1.1 (0.9-1.1); Prothrombin Time 11.8 Seconds (9.0-12.0)
[2022-07-31 05:45] LABS: Hematocrit (blood only) 34.5 % (37.0-47.0); Hemoglobin 11.1 g/dl (12.0-16.0); Mean Corpuscular Hemoglobin 27.6 pg (25.0-34.0); Mean Corpuscular Hgb Conc 32.2 g/dL (32.0-36.0); Mean Corpuscular Volume 85.8 fL (80.0-100.0); Mean Platelet Volume 12.4 fL (9.4-12.4); Platelet Count 73 K/uL (130-400); RDW Standard Deviation 40.6 fL (36.4-46.3); Red Blood Count 4.02 M/uL (4.20-5.40); White Blood Count 13.68 K/ul (4.8-10.8)
[2022-07-31 05:46] LABS: ALC (manual) 0.82 K/uL (1.2-3.4); ANC (manual) 12.59 K/uL (1.4-6.5); Lymphocytes # (manual) 0.82 K/uL (1.2-3.4); Lymphocytes % (manual) 6 %; Monocytes # (manual) 0.27 K/uL (0.11-0.59); Monocytes % (manual) 2 %; Neutrophils # (manual) 12.59 K/uL (1.40-6.50); Neutrophils % (manual) 92 %; Platelet Estimate Decreased (Normal); RBC Morphology Unremarkable
[2022-07-31] MEDS: LEVOTHYROXINE SODIUM 125 MCG TABLET PO SCH (06:47)
[2022-07-31] MEDS: PANTOprazole 40 MG TAB PO SCH (06:47)
[2022-07-31] MEDS: PLASMA-LYTE A 1,000 ML IV SCH ×2 (06:56→21:27)
[2022-07-31] MEDS: NOREPINEPHRINE/D5W 4 MG/250 ML PLCT IV SCH (07:51)
[2022-07-31] MEDS: CHOLECALCIFEROL 1,000 UNITS 25 MCG TAB PO SCH (08:54)
[2022-07-31] MEDS: CEFEPIME 2,000 MG in SYRINGE 0 ML IV SCH ×2 (08:54→17:33)
[2022-07-31] MEDS: CALCIUM 600MG + VIT D 400 IU TAB PO SCH (08:54)
[2022-07-31] MEDS: METOPROLOL SUCC 50MG EXT REL TAB PO SCH (08:55)
[2022-07-31] MEDS: HEPARIN SOD 5,000 UNIT/0.5 ML VIAL SQ SCH ×2 (08:55→20:15)
[2022-07-31] MEDS: MIRABEGRON ER 25 MG TAB PO SCH (08:55)
[2022-07-31] MEDS: INSULIN ASPART PER UNIT CHARGE SC SCH ×4 (09:26→20:15)
[2022-07-31] MEDS: ONDANSETRON INJ 2 MG/ML 2 ML VIAL IV PRN (11:49)
[2022-07-31] MEDS ORDERED: PROMETHAZINE HCL 12.5 MG in SODIUM CHLORIDE 0.9% 50 ML IV PRN (13:34)
[2022-07-31] MEDS ORDERED: STAT IV STA (16:34)
--- NOTE | 2022-07-31 16:34 | Hospitalist Progress Note ---
Date of Service July 31, 2022 Assessment & Plan (1) Sepsis: Plan: Septic shock secondary to obstructive uropathy with infection Has been on intravenous norepinephrine to maintain blood pressure Received intravenous Zosyn and 1 dose of vancomycin and has been on cefepime now Urine was suggestive of infection, blood and urine cultures are pending Appreciate diversified crops farmer input and recommendation Urine culture is growing gram-negative bacilli-further identification is pending Blood culture is negative so far Clinically better no fever and or chills and white count is improving Acute metabolic and cephalopathy Likely secondary to sepsis Allergic reaction to morphine is considered-difficulty with breathing with morphine as noted from 07/29/2022 Received Benadryl and also has been getting nebulized bronchodilator Mentally clear Electrolyte imbalance Severe hypokalemia and hypocalcemia Will be replaced and monitor Calcium remains low-will give 1 g calcium gluconate today To treat electrolytes (2) Obstruction of left ureteropelvic junction (UPJ) due to stone: Plan: Came in with left-sided abdominal pain and noted to have obstructive stone Developed chills in the emergency room and required urgent urologic procedure Status post cystoscopy, left retrograde pyelogram and left ureteric stent placement on 07/29/2022-required ICU transfer following the procedure from PACU Appreciate urology input and recommendation Patient is free of any pain but remains tachycardic in the emergency room and has been requiring CPAP (3) HLD (hyperlipidemia): (4) TESHA (obstructive sleep apnea): Plan: Complicating respiratory symptoms with infection and sepsis Has been on CPAP to maintain saturation Appreciate input from diversified crops farmer Continue CPAP (5) HTN (hypertension): Plan: Remains stable on norepinephrine (6) T2DM (type 2 diabetes mellitus): (7) Acute metabolic encephalopathy: Plan: As above (8) Allergy to morphine: Plan Acute hypoxic respiratory failure -Underlying TESHA, likely obesity hypoventilation syndrome. Maintain O2sat > 90% Dispo- Admit to PCU DVT ppx- Start SQ heparin if no plans for cystoscopy today Admission and Anticipated Discharge Date Admission Date: July 29, 2022 Subjective 07/30/2022 The patient was seen and examined in ICU She is very anxious and shaky but denies any significant pain Her abdominal pain is resolved following the procedure Denies any other significant symptoms 07/31/2022 The patient was seen and examined in telemetry unit in presence of the son She has been much better Has been on BiPAP and still has tachycardia and blood pressure remains high today Review of Systems Review of Systems: All systems reviewed and are unremarkable except as noted below Respiratory: Moderate shortness of breath at rest Cardiovascular: Additional Comments: Palpitation Gastrointestinal: No significant abdominal pain Physical Exam Physical Exam: Lying in bed very anxious with moderate respiratory distress Constitutional: well developed, well nourished, + ill appearing and + obese Eyes: PERRL, conjunctivae normal, anicteric sclerae ENMT: external ear and nose normal, oropharynx normal Neck: trachea midline, no thyromegaly Respiratory: + respiratory distress Auscultation: + diminished lung sounds and + crackles (Minimal crackles bibasally) Cardiovascular: Rate/Rhythm: regular rate, regular rhythm and + tachycardic Heart Sounds: normal S1 and normal S2; no murmur Extremities: + edema (Trace edema bilaterally) Gastrointestinal (Abdomen): Inspection/Auscultation: + abdomen distended and normal bowel sounds Percussion/Palpation: + abdomen tender (Mildly tender left renal angle) and abdomen soft Musculoskeletal: No acute arthritis involving any joint Neurologic: Alert and awake. Less anxious today Lymphatic: no cervical or axillary lymphadenopathy Results & Data Results & Data Vital Signs (Past 12 Hours) Vital Signs Temp Pulse Resp BP Pulse Ox O2 Del Method O2 Flow Rate 07/31/22 15:04 36.5 C 99 H 20 162/88 H 95 Nasal Cannula 3 07/31/22 11:26 36.9 C 88 20 171/104 H 98 CPAP 07/31/22 07:48 36.5 C 88 20 152/78 H 96 Nasal Cannula 3 07/31/22 07:30 Nasal Cannula 3 Laboratory Results Short CBC 07/31/22 Range/Units 04:19 WBC 13.68 H (4.8-10.8) K/ul Hgb 11.1 L (12.0-16.0) g/dl Hct 34.5 L (37.0-47.0) % Plt Count 73 L (130-400) K/uL BMP 07/30/22 07/31/22 15:58 04:19 Sodium 140 138 Potassium 3.6 D 3.7 Chloride 107 110 H Carbon Dioxide 24 23 BUN 15 18 Creatinine 0.69 0.70 Glucose 142 H 136 H Calcium 7.4 L 7.5 L Medications Administered Current Inpatient Medications Acetaminophen (Acetaminophen 325 Mg Tab) 650 mg PO Q4H PRN PRN Reason: Pain or Fever Stop: 08/28/22 15:27 Calcium/Vitamin D (Calcium 600mg + Vit D 400 Iu Tab) 1 tab PO QAM [facility] Stop: 08/29/22 08:59 Last Admin: 07/31/22 08:54 Dose: 1 tab Dextrose (Dextrose 50% 50 Ml Syringe) 25 - 50 ml IV UD PRN; Protocol PRN Reason: Hypoglycemia Protocol Stop: 08/29/22 08:27 Glucagon (Glucagon For Inj 1 Mg Vial) 1 mg SQ UD PRN; Protocol PRN Reason: Hypoglycemia Protocol Stop: 08/29/22 08:27 Glucose (Glucose 10 Tab/Tube) 4 - 8 tab PO UD PRN; Protocol PRN Reason: Hypoglycemia Treatment Stop: 08/29/22 08:27 Glucose (Glucose 40% Gel 15 Gm Tube) 15 - 30 gm PO UD PRN; Protocol PRN Reason: Hypoglycemia Protocol Stop: 08/29/22 08:27 Heparin Sodium (Porcine) (Heparin Sod 5,000 Unit/0.5 Ml Vial) 5,000 units SQ Q12 [facility] Stop: 08/29/22 08:59 Last Admin: 07/31/22 08:55 Dose: 5,000 units Acetaminophen (Ofirmev) 1,000 mg in 100 mls @ 400 mls/hr IV Q8H PRN PRN Reason: Fever Stop: 08/01/22 18:13 Last Infusion: 07/31/22 00:00 Dose: Infused Parenteral Electrolytes (Plasma-Lyte A Ph 7.4) 1,000 mls @ 75 mls/hr IV .[id number] [facility] Stop: 08/29/22 00:59 Last Admin: 07/31/22 06:56 Dose: 75 mls/hr Cefepime HCl 2,000 mg/ Syringe 20 mls @ 5 mls/min IV Q8H [facility]; Protocol Stop: 08/08/22 20:59 Promethazine HCl 12.5 mg/ (Sodium Chloride) 50.5 mls @ 202 mls/hr IV Q6H PRN PRN Reason: Nausea And Vomiting Stop: 08/30/22 13:33 Last Infusion: 07/31/22 14:33 Dose: Infused Insulin Aspart (Insulin Aspart Per Unit Charge) 0 units SC ACHS [facility] Stop: 08/29/22 11:29 Last Admin: 07/31/22 12:19 Dose: Not Given Ketorolac Tromethamine (Ketorolac Tromethamine 15 Mg/Ml Vial) 15 mg IV Q6H PRN PRN Reason: Pain Stop: 08/03/22 16:19 Last Admin: 07/30/22 19:53 Dose: 15 mg Levothyroxine Sodium (Levothyroxine Sodium 125 Mcg Tablet) [facility] Stop: 08/29/22 06:29 Last Admin: 07/31/22 06:47 Dose: 125 mcg Magnesium Hydroxide (Magnesium Hydroxide Susp 30 Ml Udc) 30 ml PO Q12H PRN PRN Reason: Constipation Stop: 08/28/22 15:27 Metoprolol Succinate (Metoprolol Succ 50mg Ext Rel Tab) [address] [facility] Stop: 08/30/22 08:59 Last Admin: 07/31/22 08:55 Dose: 50 mg Mirabegron (Mirabegron Er 25 Mg Tab) 25 [facility] [place] Stop: 08/29/22 08:59 Last Admin: 07/31/22 08:55 Dose: 25 mg Miscellaneous (Carbohydrates For Hypoglycemia ) 15 - 30 gm PO UD PRN PRN Reason: Hypoglycemia Protocol Stop: 08/29/22 08:27 Ondansetron HCl (Ondansetron Inj 2 Mg/Ml 2 Ml Vial) 4 mg IV Q6H PRN PRN Reason: Nausea Stop: 08/28/22 15:27 Last Admin: 07/31/22 11:49 Dose: 4 mg Pantoprazole Sodium (Pantoprazole 40 Mg Tab) 40 mg PO DAILYBB [facility] Stop: 08/29/22 06:29 Last Admin: 07/31/22 06:47 Dose: 40 mg Polyethylene Glycol (Polyethylene (Miralax) 17 Gm Pack) 17 gm PO DAILY PRN PRN Reason: Constipation Stop: 08/28/22 15:27 Vitamin D (Cholecalciferol 1,000 Units 25 Mcg Tab) 3,000 units PO DAILY [facility] Stop: 08/29/22 08:59 Last Admin: 07/31/22 08:54 Dose: 3,000 units (6) T2DM (type 2 diabetes mellitus) Diabetes mellitus complication status: without complication Diabetes mellitus termite helper insulin use: without termite helper use Qualified Code(s): E11.9 - Type 2 diabetes mellitus without complications
[2022-07-31] MEDS ORDERED: CALCIUM GLUCONATE 10% 1,000 MG in DEXTROSE 5% 50 ML IV ONE (17:00)
[2022-07-31] MEDS: ACETAMINOPHEN 1,000 MG/100 ML VIAL IV PRN (19:38)
[2022-08-01] MEDS: CEFEPIME 2,000 MG in SYRINGE 0 ML IV SCH ×3 (00:13→18:00)
[2022-08-01] MEDS: KETOROLAC TROMETHAMINE 15 MG/ML VIAL IV PRN ×2 (02:19→12:15)
[2022-08-01] MEDS ORDERED: Nursing to Pharmacy Communication SCH (05:30)
[2022-08-01] MEDS: PANTOprazole 40 MG TAB PO SCH (05:55)
[2022-08-01] MEDS: LEVOTHYROXINE SODIUM 125 MCG TABLET PO SCH (05:55)
[2022-08-01 06:27] LABS: Calcium 8.3 mg/dl (8.6-10.3); Est GFR (African American) 107.4 ml/min; Est GFR (Non-African American) 92.7 ml/min; Phosphorus 2.4 mg/dl (2.5-4.9); Potassium 3.7 mmol/L (3.5-5.1)
[2022-08-01 06:41] LABS: Basophils % (auto) 0.6 %; Echinocytes 1+; Eosinophils # (auto) 0.13 K/uL (0-0.50); Eosinophils % (auto) 0.8 %; Hematocrit (blood only) 34.6 % (37.0-47.0); Hemoglobin 11.1 g/dl (12.0-16.0); Immature Granulocytes # (auto) 0.15 K/uL (0.01-0.20); Immature Granulocytes % (auto) 0.9 %; Lymphocytes # (auto) 1.28 K/uL (1.2-3.4); Lymphocytes % (auto) 7.9 %; Mean Corpuscular Hemoglobin 27.2 pg (25.0-34.0); Mean Corpuscular Hgb Conc 32.1 g/dL (32.0-36.0); Mean Corpuscular Volume 84.8 fL (80.0-100.0); Mean Platelet Volume 11.8 fL (9.4-12.4); Monocytes # (auto) 0.47 K/uL (0.11-0.59); Monocytes % (auto) 2.9 %; Neutrophils # (auto) 14.08 K/uL (1.40-6.50); Neutrophils % (auto) 86.9 %; Platelet Count 95 K/uL (130-400); RDW Coefficient of Variation 12.9 % (11.5-14.5); RDW Standard Deviation 39.5 fL (36.4-46.3); Red Blood Count 4.08 M/uL (4.20-5.40); Toxic Vacuolation 1+; White Blood Count 16.21 K/ul (4.8-10.8)
[2022-08-01] MEDS: CALCIUM 600MG + VIT D 400 IU TAB PO SCH (08:30)
[2022-08-01] MEDS: METOPROLOL SUCC 50MG EXT REL TAB PO SCH (08:31)
[2022-08-01] MEDS: CHOLECALCIFEROL 1,000 UNITS 25 MCG TAB PO SCH (08:31)
[2022-08-01] MEDS: HEPARIN SOD 5,000 UNIT/0.5 ML VIAL SQ SCH ×2 (08:31→20:06)
[2022-08-01] MEDS: MIRABEGRON ER 25 MG TAB PO SCH (08:32)
[2022-08-01] MEDS: INSULIN ASPART PER UNIT CHARGE SC SCH ×4 (09:16→20:34)
[2022-08-01] MEDS: PLASMA-LYTE A 1,000 ML IV SCH (11:50)
[2022-08-01] MEDS ORDERED: ALBUTEROL 0.083% NEBU SOLN 3 ML VIAL NEB PRN (12:34)
--- NOTE | 2022-08-01 13:10 | Hospitalist Progress Note ---
Date of Service August 01, 2022 Assessment & Plan (1) Sepsis: Plan: Septic shock secondary to obstructive uropathy with infection Has been on intravenous norepinephrine to maintain blood pressure Received intravenous Zosyn and 1 dose of vancomycin and has been on cefepime now Urine was suggestive of infection, blood and urine cultures are pending Appreciate manager placement input and recommendation Urine culture is growing gram-negative bacilli-further identification is pending Blood culture is negative so far Urine culture is growing Klebsiella pneumoniae and which is pansensitive. Blood cultures remain negative We will continue with current antibiotic Acute metabolic and cephalopathy Likely secondary to sepsis Allergic reaction to morphine is considered-difficulty with breathing with morphine as noted from 07/29/2022 Received Benadryl and also has been getting nebulized bronchodilator Remains generally weak and lethargic but mentally clear Electrolyte imbalance Severe hypokalemia and hypocalcemia Will be replaced and monitor Calcium remains low-will give 1 g calcium gluconate today To treat electrolytes-electrolytes are improved (2) Obstruction of left ureteropelvic junction (UPJ) due to stone: Plan: Came in with left-sided abdominal pain and noted to have obstructive stone Developed chills in the emergency room and required urgent urologic procedure Status post cystoscopy, left retrograde pyelogram and left ureteric stent placement on 07/29/2022-required ICU transfer following the procedure from PACU Appreciate urology input and recommendation Patient is free of any pain but remains tachycardic in the emergency room and has been requiring CPAP No acute symptoms of the abdomen (3) HLD (hyperlipidemia): (4) TESHA (obstructive sleep apnea): Plan: Complicating respiratory symptoms with infection and sepsis Has been on CPAP to maintain saturation Appreciate input from manager placement Continue CPAP-we will need to have outpatient polysomnography (5) HTN (hypertension): Plan: Remains stable on norepinephrine (6) T2DM (type 2 diabetes mellitus): (7) Acute metabolic encephalopathy: Plan: As above (8) Allergy to morphine: Plan Acute hypoxic respiratory failure -Underlying TESHA, likely obesity hypoventilation syndrome. Maintain O2sat > 90% Dispo- Admit to PCU DVT ppx- Start SQ heparin if no plans for cystoscopy today Heparin subcu Admission and Anticipated Discharge Date Admission Date: July 29, 2022 Subjective 07/30/2022 The patient was seen and examined in ICU She is very anxious and shaky but denies any significant pain Her abdominal pain is resolved following the procedure Denies any other significant symptoms 07/31/2022 The patient was seen and examined in telemetry unit in presence of the son She has been much better Has been on BiPAP and still has tachycardia and blood pressure remains high today 08/01/2022 The patient was seen and examined in telemetry unit in presence of the daughter She has been much better Noted to have wheezing later on She feels that she is not yet better Review of Systems Review of Systems: All systems reviewed and are unremarkable except as noted below Respiratory: Moderate shortness of breath at rest Cardiovascular: Additional Comments: Palpitation Gastrointestinal: No significant abdominal pain Physical Exam Physical Exam: Lying in bed very anxious with moderate respiratory distress Constitutional: well developed, well nourished, + ill appearing and + obese Eyes: PERRL, conjunctivae normal, anicteric sclerae ENMT: external ear and nose normal, oropharynx normal Neck: trachea midline, no thyromegaly Respiratory: + respiratory distress Auscultation: + diminished lung sounds and + crackles (Minimal crackles bibasally) Cardiovascular: Rate/Rhythm: regular rate, regular rhythm and + tachycardic Heart Sounds: normal S1 and normal S2; no murmur Extremities: + edema (Trace edema bilaterally) Gastrointestinal (Abdomen): Inspection/Auscultation: + abdomen distended and normal bowel sounds Percussion/Palpation: + abdomen tender (Mildly tender left renal angle) and abdomen soft Musculoskeletal: No acute arthritis involving any joint Neurologic: Alert, awake and oriented x3. No focal sensory or no motor deficit appreciated Lymphatic: no cervical or axillary lymphadenopathy Results & Data Results & Data Vital Signs (Past 12 Hours) Vital Signs Temp Pulse Pulse Resp BP Pulse Ox O2 Del Method 08/01/22 12:36 80 30 H 98 08/01/22 11:00 36.6 C 80 20 163/88 H 99 CPAP 08/01/22 11:08 Nasal Cannula 08/01/22 08:14 37.0 C 81 19 161/105 H 93 Nasal Cannula 08/01/22 04:01 36.3 C L 75 20 156/98 H 98 CPAP 08/01/22 03:23 74 23 95 O2 Flow Rate FiO2 08/01/22 12:36 40 08/01/22 11:00 08/01/22 11:08 2 08/01/22 08:14 2 04/16/23 04:01 08/01/22 03:23 40 Laboratory Results Current Inpatient Medications Acetaminophen (Acetaminophen 325 Mg Tab) 650 mg PO Q4H PRN PRN Reason: Pain or Fever Stop: 08/28/22 15:27 Albuterol (Albuterol 0.083% Nebu Soln 3 Ml Vial) 2.5 mg NEB Q6R PRN; Protocol PRN Reason: Wheezing Stop: 08/31/22 12:33 Calcium/Vitamin D (Calcium 600mg + Vit D 400 Iu Tab) 1 tab PO QAM [place] Stop: 08/29/22 08:59 Last Admin: 08/01/22 08:30 Dose: 1 tab Dextrose (Dextrose 50% 50 Ml Syringe) 25 - 50 ml IV UD PRN; Protocol PRN Reason: Hypoglycemia Protocol Stop: 08/29/22 08:27 Glucagon (Glucagon For Inj 1 Mg Vial) 1 mg SQ UD PRN; Protocol PRN Reason: Hypoglycemia Protocol Stop: 08/29/22 08:27 Glucose (Glucose 10 Tab/Tube) 4 - 8 tab PO UD PRN; Protocol PRN Reason: Hypoglycemia Treatment Stop: 08/29/22 08:27 Glucose (Glucose 40% Gel 15 Gm Tube) 15 - 30 gm PO UD PRN; Protocol PRN Reason: Hypoglycemia Protocol Stop: 08/29/22 08:27 Heparin Sodium (Porcine) (Heparin Sod 5,000 Unit/0.5 Ml Vial) 5,000 units SQ Q12 [place] Stop: 08/29/22 08:59 Last Admin: 08/01/22 08:31 Dose: 5,000 units Acetaminophen (Ofirmev) 1,000 mg in 100 mls @ 400 mls/hr IV Q8H PRN PRN Reason: Fever Stop: 08/01/22 18:13 Last Infusion: 07/31/22 19:58 Dose: Infused Parenteral Electrolytes (Plasma-Lyte A Ph 7.4) 1,000 mls @ 75 mls/hr IV .[id number] [facility] Stop: 08/29/22 00:59 Last Admin: 08/01/22 11:50 Dose: 75 mls/hr Cefepime HCl 2,000 mg/ Syringe 20 mls @ 5 mls/min IV Q8H [facility]; Protocol Stop: 08/08/22 20:59 Last Admin: 08/01/22 08:30 Dose: 5 mls/min Promethazine HCl 12.5 mg/ (Sodium Chloride) 50.5 mls @ 202 mls/hr IV Q6H PRN PRN Reason: Nausea And Vomiting Stop: 08/30/22 13:33 Last Infusion: 07/31/22 14:33 Dose: Infused Insulin Aspart (Insulin Aspart Per Unit Charge) 0 units SC ACHS [facility] Stop: 08/29/22 11:29 Last Admin: 08/01/22 12:49 Dose: 3 units Ketorolac Tromethamine (Ketorolac Tromethamine 15 Mg/Ml Vial) 15 mg IV Q6H PRN PRN Reason: Pain Stop: 08/03/22 16:19 Last Admin: 08/01/22 12:15 Dose: 15 mg Levothyroxine Sodium (Levothyroxine Sodium 125 Mcg Tablet) [facility] Stop: 08/29/22 06:29 Last Admin: 08/01/22 05:55 Dose: 125 mcg Magnesium Hydroxide (Magnesium Hydroxide Susp 30 Ml Udc) 30 ml PO Q12H PRN PRN Reason: Constipation Stop: 08/28/22 15:27 Metoprolol Succinate (Metoprolol Succ 50mg Ext Rel Tab) 50 mg PO [facility] Stop: 08/30/22 08:59 Last Admin: 08/01/22 08:31 Dose: 50 mg Mirabegron (Mirabegron Er 25 Mg Tab) [facility] [place] Stop: 08/29/22 08:59 Last Admin: 08/01/22 08:32 Dose: 25 mg Miscellaneous (Carbohydrates For Hypoglycemia ) 15 - 30 gm PO UD PRN PRN Reason: Hypoglycemia Protocol Stop: 08/29/22 08:27 Ondansetron HCl (Ondansetron Inj 2 Mg/Ml 2 Ml Vial) 4 mg IV Q6H PRN PRN Reason: Nausea Stop: 08/28/22 15:27 Last Admin: 07/31/22 11:49 Dose: 4 mg Pantoprazole Sodium (Pantoprazole 40 Mg Tab) [facility] Stop: 08/29/22 06:29 Last Admin: 08/01/22 05:55 Dose: 40 mg Polyethylene Glycol (Polyethylene (Miralax) 17 Gm Pack) 17 gm PO DAILY PRN PRN Reason: Constipation Stop: 08/28/22 15:27 Vitamin D (Cholecalciferol 1,000 Units 25 Mcg Tab) 3,000 units PO DAILY [facility] Stop: 08/29/22 08:59 Last Admin: 08/01/22 08:31 Dose: 3,000 units Medications Administered Current Inpatient Medications Acetaminophen (Acetaminophen 325 Mg Tab) 650 mg PO Q4H PRN PRN Reason: Pain or Fever Stop: 08/28/22 15:27 Albuterol (Albuterol 0.083% Nebu Soln 3 Ml Vial) 2.5 mg NEB Q6R PRN; Protocol PRN Reason: Wheezing Stop: 08/31/22 12:33 Calcium/Vitamin D (Calcium 600mg + Vit D 400 Iu Tab) 1 tab PO QAM [place] Stop: 08/29/22 08:59 Last Admin: 08/01/22 08:30 Dose: 1 tab Dextrose (Dextrose 50% 50 Ml Syringe) 25 - 50 ml IV UD PRN; Protocol PRN Reason: Hypoglycemia Protocol Stop: 08/29/22 08:27 Glucagon (Glucagon For Inj 1 Mg Vial) 1 mg SQ UD PRN; Protocol PRN Reason: Hypoglycemia Protocol Stop: 08/29/22 08:27 Glucose (Glucose 10 Tab/Tube) 4 - 8 tab PO UD PRN; Protocol PRN Reason: Hypoglycemia Treatment Stop: 08/29/22 08:27 Glucose (Glucose 40% Gel 15 Gm Tube) 15 - 30 gm PO UD PRN; Protocol PRN Reason: Hypoglycemia Protocol Stop: 08/29/22 08:27 Heparin Sodium (Porcine) (Heparin Sod 5,000 Unit/0.5 Ml Vial) 5,000 units SQ Q12 [place] Stop: 08/29/22 08:59 Last Admin: 08/01/22 08:31 Dose: 5,000 units Acetaminophen (Ofirmev) 1,000 mg in 100 mls @ 400 mls/hr IV Q8H PRN PRN Reason: Fever Stop: 08/01/22 18:13 Last Infusion: 07/31/22 19:58 Dose: Infused Parenteral Electrolytes (Plasma-Lyte A Ph 7.4) 1,000 mls @ 75 mls/hr IV .[id number] [facility] Stop: 08/29/22 00:59 Last Admin: 08/01/22 11:50 Dose: 75 mls/hr Cefepime HCl 2,000 mg/ Syringe 20 mls @ 5 mls/min IV Q8H [facility]; Protocol Stop: 08/08/22 20:59 Last Admin: 08/01/22 08:30 Dose: 5 mls/min Promethazine HCl 12.5 mg/ (Sodium Chloride) 50.5 mls @ 202 mls/hr IV Q6H PRN PRN Reason: Nausea And Vomiting Stop: 08/30/22 13:33 Last Infusion: 07/31/22 14:33 Dose: Infused Insulin Aspart (Insulin Aspart Per Unit Charge) 0 units SC ACHS [facility] Stop: 08/29/22 11:29 Last Admin: 08/01/22 12:49 Dose: 3 units Ketorolac Tromethamine (Ketorolac Tromethamine 15 Mg/Ml Vial) 15 mg IV Q6H PRN PRN Reason: Pain Stop: 08/03/22 16:19 Last Admin: 08/01/22 12:15 Dose: 15 mg Levothyroxine Sodium (Levothyroxine Sodium 125 Mcg Tablet) 125 [facility] Stop: 08/29/22 06:29 Last Admin: 08/01/22 05:55 Dose: 125 mcg Magnesium Hydroxide (Magnesium Hydroxide Susp 30 Ml Udc) 30 ml PO Q12H PRN PRN Reason: Constipation Stop: 08/28/22 15:27 Metoprolol Succinate (Metoprolol Succ 50mg Ext Rel Tab) 50 mg PO [facility] Stop: 08/30/22 08:59 Last Admin: 08/01/22 08:31 Dose: 50 mg Mirabegron (Mirabegron Er 25 Mg Tab) 25 mg PO [facility] Stop: 08/29/22 08:59 Last Admin: 08/01/22 08:32 Dose: 25 mg Miscellaneous (Carbohydrates For Hypoglycemia ) 15 - 30 gm PO UD PRN PRN Reason: Hypoglycemia Protocol Stop: 08/29/22 08:27 Ondansetron HCl (Ondansetron Inj 2 Mg/Ml 2 Ml Vial) 4 mg IV Q6H PRN PRN Reason: Nausea Stop: 08/28/22 15:27 Last Admin: 07/31/22 11:49 Dose: 4 mg Pantoprazole Sodium (Pantoprazole 40 Mg Tab) [facility] Stop: 08/29/22 06:29 Last Admin: 08/01/22 05:55 Dose: 40 mg Polyethylene Glycol (Polyethylene (Miralax) 17 Gm Pack) 17 gm PO DAILY PRN PRN Reason: Constipation Stop: 08/28/22 15:27 Vitamin D (Cholecalciferol 1,000 Units 25 Mcg Tab) 3,000 units PO DAILY [facility] Stop: 08/29/22 08:59 Last Admin: 08/01/22 08:31 Dose: 3,000 units (6) T2DM (type 2 diabetes mellitus) Diabetes mellitus complication status: without complication Diabetes mellitus lapel padder insulin use: without half-way use Qualified Code(s): E11.9 - Type 2 diabetes mellitus without complications
[2022-08-02] MEDS: PLASMA-LYTE A 1,000 ML IV SCH ×2 (00:36→13:08)
[2022-08-02] MEDS: CEFEPIME 2,000 MG in SYRINGE 0 ML IV SCH ×2 (00:37→08:11)
[2022-08-02] MEDS: PANTOprazole 40 MG TAB PO SCH (05:58)
[2022-08-02] MEDS: LEVOTHYROXINE SODIUM 125 MCG TABLET PO SCH (05:58)
[2022-08-02] MEDS: KETOROLAC TROMETHAMINE 15 MG/ML VIAL IV PRN ×2 (06:09→21:14)
[2022-08-02 08:11] LABS: Basophils # (auto) 0.09 K/uL (0-0.2); Basophils % (auto) 1.1 %; Eosinophils # (auto) 0.23 K/uL (0-0.50); Eosinophils % (auto) 2.7 %; Hematocrit (blood only) 35.7 % (37.0-47.0); Hemoglobin 11.1 g/dl (12.0-16.0); Immature Granulocytes # (auto) 0.19 K/uL (0.01-0.20); Immature Granulocytes % (auto) 2.2 %; Lymphocytes # (auto) 0.99 K/uL (1.2-3.4); Lymphocytes % (auto) 11.7 %; Mean Corpuscular Hemoglobin 27.2 pg (25.0-34.0); Mean Corpuscular Hgb Conc 31.1 g/dL (32.0-36.0); Mean Corpuscular Volume 87.5 fL (80.0-100.0); Mean Platelet Volume 11.4 fL (9.4-12.4); Monocytes # (auto) 0.48 K/uL (0.11-0.59); Monocytes % (auto) 5.7 %; Neutrophils # (auto) 6.48 K/uL (1.40-6.50); Neutrophils % (auto) 76.6 %; Platelet Count 105 K/uL (130-400); RDW Coefficient of Variation 12.7 % (11.5-14.5); RDW Standard Deviation 40.5 fL (36.4-46.3); Red Blood Count 4.08 M/uL (4.20-5.40); White Blood Count 8.46 K/ul (4.8-10.8)
[2022-08-02] MEDS: CHOLECALCIFEROL 1,000 UNITS 25 MCG TAB PO SCH (08:11)
[2022-08-02] MEDS: CALCIUM 600MG + VIT D 400 IU TAB PO SCH (08:11)
[2022-08-02] MEDS: METOPROLOL SUCC 50MG EXT REL TAB PO SCH (08:12)
[2022-08-02] MEDS: MIRABEGRON ER 25 MG TAB PO SCH (08:12)
[2022-08-02] MEDS: HEPARIN SOD 5,000 UNIT/0.5 ML VIAL SQ SCH ×2 (08:12→20:02)
[2022-08-02] MEDS: INSULIN ASPART PER UNIT CHARGE SC SCH ×4 (09:28→21:09)
[2022-08-02 09:46] LABS: Magnesium 1.6 mg/dl (1.7-2.4); Potassium 3.6 mmol/L (3.5-5.1)
[2022-08-02 09:52] LABS: BUN Creatinine Ratio 27.1 (10-20); Creatinine Clr Calc Pharmacy 106.1 ml/min; Est GFR (African American) 108.9 ml/min
[2022-08-02] MEDS ORDERED: LIDOCAINE VISCOUS 2% 15 ML UDC MT PRN (12:31)
--- NOTE | 2022-08-02 14:40 | Hospitalist Progress Note ---
Date of Service August 02, 2022 Assessment & Plan (1) Sepsis: Plan: Septic shock secondary to obstructive uropathy with infection Has been on intravenous norepinephrine to maintain blood pressure Received intravenous Zosyn and 1 dose of vancomycin and has been on cefepime now Urine was suggestive of infection, blood and urine cultures are pending Appreciate full charge bookkeeper input and recommendation Urine culture is growing gram-negative bacilli-further identification is pending Blood culture is negative so far Urine culture is growing Klebsiella pneumoniae and which is pansensitive. Blood cultures remain negative We will continue with current antibiotic Antibiotics have been changed to oral Augmentin to finish the course for the next few days She will have PT and OT evaluation and likely discharge tomorrow Acute metabolic and cephalopathy Likely secondary to sepsis Allergic reaction to morphine is considered-difficulty with breathing with morphine as noted from 07/29/2022 Received Benadryl and also has been getting nebulized bronchodilator Remains generally weak and lethargic but mentally clear No acute issues Electrolyte imbalance Severe hypokalemia and hypocalcemia Will be replaced and monitor Calcium remains low-will give 1 g calcium gluconate today To treat electrolytes-electrolytes are improved (2) Obstruction of left ureteropelvic junction (UPJ) due to stone: Plan: Came in with left-sided abdominal pain and noted to have obstructive stone Developed chills in the emergency room and required urgent urologic procedure Status post cystoscopy, left retrograde pyelogram and left ureteric stent placement on 07/29/2022-required ICU transfer following the procedure from PACU Appreciate urology input and recommendation Patient is free of any pain but remains tachycardic in the emergency room and has been requiring CPAP No acute symptoms of the abdomen (3) HLD (hyperlipidemia): (4) TESHA (obstructive sleep apnea): Plan: Complicating respiratory symptoms with infection and sepsis Has been on CPAP to maintain saturation Appreciate input from full charge bookkeeper Continue CPAP-we will need to have outpatient polysomnography (5) HTN (hypertension): Plan: Remains stable on norepinephrine Blood pressure is normal (6) T2DM (type 2 diabetes mellitus): (7) Acute metabolic encephalopathy: Plan: As above (8) Allergy to morphine: Plan Acute hypoxic respiratory failure -Underlying TESHA, likely obesity hypoventilation syndrome. Maintain O2sat > 90% Dispo- Admit to PCU DVT ppx- Start SQ heparin if no plans for cystoscopy today Heparin subcu PT OT evaluation prior to discharge Admission and Anticipated Discharge Date Admission Date: July 29, 2022 Subjective 07/30/2022 The patient was seen and examined in ICU She is very anxious and shaky but denies any significant pain Her abdominal pain is resolved following the procedure Denies any other significant symptoms 07/31/2022 The patient was seen and examined in telemetry unit in presence of the son She has been much better Has been on BiPAP and still has tachycardia and blood pressure remains high today 08/01/2022 The patient was seen and examined in telemetry unit in presence of the daughter She has been much better Noted to have wheezing later on She feels that she is not yet better 08/02/2022 The patient was seen and examined in telemetry unit in presence of the daughter She has been feeling much better Denies any shortness of breath, wheezing, fever and or chills Has weakness Review of Systems Review of Systems: All systems reviewed and are unremarkable except as noted below Respiratory: Moderate shortness of breath at rest Cardiovascular: Additional Comments: Palpitation Gastrointestinal: No significant abdominal pain Physical Exam Physical Exam: Lying in bed without any significant distress Constitutional: well developed, well nourished, + ill appearing and + obese Eyes: PERRL, conjunctivae normal, anicteric sclerae ENMT: external ear and nose normal, oropharynx normal Neck: trachea midline, no thyromegaly Respiratory: + respiratory distress Auscultation: + diminished lung sounds and + crackles (Minimal crackles bibasally) Cardiovascular: Rate/Rhythm: regular rate, regular rhythm and + tachycardic Heart Sounds: normal S1 and normal S2; no murmur Extremities: + edema (Trace edema bilaterally) Gastrointestinal (Abdomen): Inspection/Auscultation: + abdomen distended and normal bowel sounds Percussion/Palpation: + abdomen tender (Mildly tender left renal angle) and abdomen soft Musculoskeletal: No acute arthritis Neurologic: normal touch/pain/proprioception and moves all extremities; no focal motor deficits Psychiatric: A+Ox3, euthymic affect Lymphatic: no cervical or axillary lymphadenopathy Results & Data Results & Data Vital Signs (Past 12 Hours) Vital Signs Temp Pulse Pulse Resp BP Pulse Ox O2 Del Method 08/02/22 10:56 37.2 C 74 18 157/83 H 99 CPAP 08/02/22 07:10 91 H 08/02/22 10:06 Nasal Cannula 08/02/22 08:00 36.7 C 88 18 164/96 H 98 Nasal Cannula 08/02/22 03:22 73 25 H 99 08/02/22 03:00 37.0 C 67 22 156/89 H 97 CPAP O2 Flow Rate FiO2 08/02/22 10:56 08/02/22 07:10 08/02/22 10:06 2 08/02/22 08:00 2 08/02/22 03:22 40 08/02/22 03:00 Laboratory Results Short CBC 08/02/22 Range/Units 07:18 WBC 8.46 (4.8-10.8) K/ul Hgb 11.1 L (12.0-16.0) g/dl Hct 35.7 L (37.0-47.0) % Plt Count 105 L (130-400) K/uL BMP 08/02/22 07:18 Sodium 142 Potassium 3.6 Chloride 105 Carbon Dioxide 30 BUN 13 Creatinine 0.48 L Glucose 116 H Calcium 8.0 L Medications Administered Current Inpatient Medications Acetaminophen (Acetaminophen 325 Mg Tab) 650 mg PO Q4H PRN PRN Reason: Pain or Fever Stop: 08/28/22 15:27 Albuterol (Albuterol 0.083% Nebu Soln 3 Ml Vial) 2.5 mg NEB Q6R PRN; Protocol PRN Reason: Wheezing Stop: 08/31/22 12:33 Amoxicillin/Clavulanate Potassium (Amoxicillin/Clavulanate 875 Mg Tab) 1 tab PO BIDM [facility]; Protocol Stop: 08/08/22 23:59 Calcium/Vitamin D (Calcium 600mg + Vit D 400 Iu Tab) 1 tab PO QAM [facility] Stop: 08/29/22 08:59 Last Admin: 08/02/22 08:11 Dose: 1 tab Dextrose (Dextrose 50% 50 Ml Syringe) 25 - 50 ml IV UD PRN; Protocol PRN Reason: Hypoglycemia Protocol Stop: 08/29/22 08:27 Glucagon (Glucagon For Inj 1 Mg Vial) 1 mg SQ UD PRN; Protocol PRN Reason: Hypoglycemia Protocol Stop: 08/29/22 08:27 Glucose (Glucose 10 Tab/Tube) 4 - 8 tab PO UD PRN; Protocol PRN Reason: Hypoglycemia Treatment Stop: 08/29/22 08:27 Glucose (Glucose 40% Gel 15 Gm Tube) 15 - 30 gm PO UD PRN; Protocol PRN Reason: Hypoglycemia Protocol Stop: 08/29/22 08:27 Heparin Sodium (Porcine) (Heparin Sod 5,000 Unit/0.5 Ml Vial) 5,000 units SQ Q12 [facility] Stop: 08/29/22 08:59 Last Admin: 08/02/22 08:12 Dose: 5,000 units Parenteral Electrolytes (Plasma-Lyte A Ph 7.4) 1,000 mls @ 75 mls/hr IV .[id number] [facility] Stop: 08/29/22 00:59 Last Admin: 08/02/22 13:08 Dose: 75 mls/hr Promethazine HCl 12.5 mg/ (Sodium Chloride) 50.5 mls @ 202 mls/hr IV Q6H PRN PRN Reason: Nausea And Vomiting Stop: 08/30/22 13:33 Last Infusion: 07/31/22 14:33 Dose: Infused Insulin Aspart (Insulin Aspart Per Unit Charge) 0 units SC ACHS [facility] Stop: 08/29/22 11:29 Last Admin: 08/02/22 12:20 Dose: 2 units Ketorolac Tromethamine (Ketorolac Tromethamine 15 Mg/Ml Vial) 15 mg IV Q6H PRN PRN Reason: Pain Stop: 08/03/22 16:19 Last Admin: 08/02/22 06:09 Dose: 15 mg Levothyroxine Sodium (Levothyroxine Sodium 125 Mcg Tablet) 125 mcg PO DAILYBB [facility] Stop: 08/29/22 06:29 Last Admin: 08/02/22 05:58 Dose: 125 mcg Lidocaine HCl (Lidocaine Viscous 2% 15 Ml Udc) 15 ml MT TID PRN PRN Reason: Pain Stop: 09/01/22 12:30 Magnesium Hydroxide (Magnesium Hydroxide Susp 30 Ml Udc) 30 ml PO Q12H PRN PRN Reason: Constipation Stop: 08/28/22 15:27 Metoprolol Succinate (Metoprolol Succ 50mg Ext Rel Tab) [facility] [place] Stop: 08/30/22 08:59 Last Admin: 08/02/22 08:12 Dose: 50 mg Mirabegron (Mirabegron Er 25 Mg Tab) 25 [facility] [place] Stop: 08/29/22 08:59 Last Admin: 04/17/23 08:12 Dose: 25 mg Miscellaneous (Carbohydrates For Hypoglycemia ) 15 - 30 gm PO UD PRN PRN Reason: Hypoglycemia Protocol Stop: 08/29/22 08:27 Ondansetron HCl (Ondansetron Inj 2 Mg/Ml 2 Ml Vial) 4 mg IV Q6H PRN PRN Reason: Nausea Stop: 08/28/22 15:27 Last Admin: 07/31/22 11:49 Dose: 4 mg Pantoprazole Sodium (Pantoprazole 40 Mg Tab) 40 mg PO DAILYBB [facility] Stop: 08/29/22 06:29 Last Admin: 08/02/22 05:58 Dose: 40 mg Polyethylene Glycol (Polyethylene (Miralax) 17 Gm Pack) 17 gm PO DAILY PRN PRN Reason: Constipation Stop: 08/28/22 15:27 Vitamin D (Cholecalciferol 1,000 Units 25 Mcg Tab) 3,000 units PO DAILY [facility] Stop: 08/29/22 08:59 Last Admin: 08/02/22 08:11 Dose: 3,000 units (6) T2DM (type 2 diabetes mellitus) Diabetes mellitus complication status: without complication Diabetes mellitus [facility] insulin use: without terminal computer operator use Qualified Code(s): E11.9 - Type 2 diabetes mellitus without complications
[2022-08-02] MEDS: ACETAMINOPHEN 325 MG TAB PO PRN ×2 (16:22→20:03)
[2022-08-02] MEDS: AMOXICILLIN/CLAVULANATE 875 MG TAB PO SCH (17:16)
[2022-08-03] MEDS: PLASMA-LYTE A 1,000 ML IV SCH ×2 (02:50→14:57)
[2022-08-03] MEDS: PANTOprazole 40 MG TAB PO SCH (06:22)
[2022-08-03] MEDS: LEVOTHYROXINE SODIUM 125 MCG TABLET PO SCH (06:22)
[2022-08-03] MEDS: INSULIN ASPART PER UNIT CHARGE SC SCH ×4 (07:44→21:05)
[2022-08-03] MEDS: METOPROLOL SUCC 50MG EXT REL TAB PO SCH ×2 (07:47→21:01)
[2022-08-03] MEDS: MIRABEGRON ER 25 MG TAB PO SCH (07:47)
[2022-08-03] MEDS: AMOXICILLIN/CLAVULANATE 875 MG TAB PO SCH ×2 (07:47→16:44)
[2022-08-03] MEDS: CHOLECALCIFEROL 1,000 UNITS 25 MCG TAB PO SCH (07:48)
[2022-08-03] MEDS: HEPARIN SOD 5,000 UNIT/0.5 ML VIAL SQ SCH ×2 (07:48→21:00)
[2022-08-03] MEDS: CALCIUM 600MG + VIT D 400 IU TAB PO SCH (07:48)
[2022-08-03] MEDS: ACETAMINOPHEN 325 MG TAB PO PRN ×2 (12:23→17:50)
--- NOTE | 2022-08-03 15:22 | Hospitalist Progress Note ---
Date of Service August 03, 2022 Assessment & Plan (1) Sepsis: Plan: Septic shock secondary to obstructive uropathy with infection Has been on intravenous norepinephrine to maintain blood pressure Received intravenous Zosyn and 1 dose of vancomycin and has been on cefepime now Urine was suggestive of infection, blood and urine cultures are pending Appreciate principal military analyst input and recommendation Urine culture is growing gram-negative bacilli-further identification is pending Blood culture is negative so far Urine culture is growing Klebsiella pneumoniae and which is pansensitive. Blood cultures remain negative We will continue with current antibiotic Antibiotics have been changed to oral Augmentin to finish the course for the next few days Has had OT and recommended home She will be discharged home tomorrow with home health Acute metabolic and cephalopathy Likely secondary to sepsis Allergic reaction to morphine is considered-difficulty with breathing with morphine as noted from 07/29/2022 Received Benadryl and also has been getting nebulized bronchodilator Remains generally weak and lethargic but mentally clear No acute issues Electrolyte imbalance Severe hypokalemia and hypocalcemia Will be replaced and monitor Calcium remains low-will give 1 g calcium gluconate today To treat electrolytes-electrolytes are improved (2) Obstruction of left ureteropelvic junction (UPJ) due to stone: Plan: Came in with left-sided abdominal pain and noted to have obstructive stone Developed chills in the emergency room and required urgent urologic procedure Status post cystoscopy, left retrograde pyelogram and left ureteric stent placement on 07/29/2022-required ICU transfer following the procedure from PACU Appreciate urology input and recommendation Patient is free of any pain but remains tachycardic in the emergency room and has been requiring CPAP No acute symptoms of the abdomen (3) HLD (hyperlipidemia): (4) TESHA (obstructive sleep apnea): Plan: Complicating respiratory symptoms with infection and sepsis Has been on CPAP to maintain saturation Appreciate input from principal military analyst 2 steps O2 saturation test recommended 2 L of oxygen via nasal cannula with ambulation She should have outpatient polysomnography (5) HTN (hypertension): Plan: Remains stable on norepinephrine Blood pressure is normal (6) T2DM (type 2 diabetes mellitus): (7) Acute metabolic encephalopathy: Plan: As above (8) Allergy to morphine: Plan Acute hypoxic respiratory failure -Underlying TESHA, likely obesity hypoventilation syndrome. Maintain O2sat > 90% Dispo- Admit to PCU DVT ppx- Start SQ heparin if no plans for cystoscopy today Heparin subcu Discharge home tomorrow Admission and Anticipated Discharge Date Admission Date: July 29, 2022 Subjective 07/30/2022 The patient was seen and examined in ICU She is very anxious and shaky but denies any significant pain Her abdominal pain is resolved following the procedure Denies any other significant symptoms 07/31/2022 The patient was seen and examined in telemetry unit in presence of the son She has been much better Has been on BiPAP and still has tachycardia and blood pressure remains high today 08/01/2022 The patient was seen and examined in telemetry unit in presence of the daughter She has been much better Noted to have wheezing later on She feels that she is not yet better 08/02/2022 The patient was seen and examined in telemetry unit in presence of the daughter She has been feeling much better Denies any shortness of breath, wheezing, fever and or chills Has weakness 08/03/2022 The patient was seen and examined in telemetry unit in presence of the daughter She has been feeling better but is still much weak and lethargic Has not been out of bed yet Denies any chest pain and her palpitation, any abdominal pain nausea and or vomiting Review of Systems Review of Systems: All systems reviewed and are unremarkable except as noted below Respiratory: Moderate shortness of breath at rest Cardiovascular: Additional Comments: Palpitation Gastrointestinal: No significant abdominal pain Physical Exam Physical Exam: Lying in bed without any significant distress Constitutional: well developed, well nourished, + ill appearing and + obese Eyes: PERRL, conjunctivae normal, anicteric sclerae ENMT: external ear and nose normal, oropharynx normal Neck: trachea midline, no thyromegaly Respiratory: + respiratory distress Auscultation: + diminished lung sounds and + crackles (Minimal crackles bibasally) Cardiovascular: Rate/Rhythm: regular rate, regular rhythm and + tachycardic Heart Sounds: normal S1 and normal S2; no murmur Extremities: + edema (Trace edema bilaterally) Gastrointestinal (Abdomen): Inspection/Auscultation: + abdomen distended and normal bowel sounds Percussion/Palpation: + abdomen tender (Mildly tender left renal angle) and abdomen soft Musculoskeletal: No acute arthritis involving any of the joints Neurologic: normal touch/pain/proprioception and moves all extremities; no focal motor deficits Psychiatric: A+Ox3, euthymic affect Lymphatic: no cervical or axillary lymphadenopathy Results & Data Results & Data Vital Signs (Past 12 Hours) Vital Signs Temp Pulse Pulse Pulse Pulse Pulse Pulse 08/03/22 13:52 75 107 H 89 89 08/03/22 11:49 36.5 C 84 08/03/22 11:45 08/03/22 07:57 08/03/22 07:40 36.5 C 68 08/03/22 07:24 70 08/03/22 04:15 36.5 C 68 08/03/22 03:55 78 Resp Resp Resp Resp Resp BP Pulse Ox 08/03/22 13:52 20 20 20 20 08/03/22 11:49 20 185/92 H 95 08/03/22 11:45 08/03/22 07:57 08/03/22 07:40 20 172/97 H 94 08/03/22 07:24 08/03/22 04:15 20 171/100 H 98 08/03/22 03:55 56 H 98 Pulse Ox Pulse Ox Pulse Ox Pulse Ox Pulse Ox O2 Del Method O2 Flow Rate 08/03/22 13:52 94 86 L 92 92 08/03/22 11:49 Nasal Cannula 2 08/03/22 11:45 96 08/03/22 07:57 Nasal Cannula, BiPAP 3 08/03/22 07:40 Nasal Cannula 2 08/03/22 07:24 08/03/22 04:15 BiPAP 08/03/22 03:55 O2 Flow Rate O2 Flow Rate FiO2 08/03/22 13:52 2 08/03/22 11:49 08/03/22 11:45 2 08/03/22 07:57 08/03/22 07:40 08/03/22 07:24 08/03/22 04:15 08/03/22 03:55 40 Medications Administered Current Inpatient Medications Acetaminophen (Acetaminophen 325 Mg Tab) 650 mg PO Q4H PRN PRN Reason: Pain or Fever Stop: 08/28/22 15:27 Last Admin: 08/03/22 12:23 Dose: 650 mg Albuterol (Albuterol 0.083% Nebu Soln 3 Ml Vial) 2.5 mg NEB Q6R PRN; Protocol PRN Reason: Wheezing Stop: 08/31/22 12:33 Amoxicillin/Clavulanate Potassium (Amoxicillin/Clavulanate 875 Mg Tab) 1 tab PO BIDM [facility]; Protocol Stop: 08/08/22 23:59 Last Admin: 08/03/22 07:47 Dose: 1 tab Calcium/Vitamin D (Calcium 600mg + Vit D 400 Iu Tab) 1 tab PO QAM [facility] Stop: 08/29/22 08:59 Last Admin: 08/03/22 07:48 Dose: 1 tab Dextrose (Dextrose 50% 50 Ml Syringe) 25 - 50 ml IV UD PRN; Protocol PRN Reason: Hypoglycemia Protocol Stop: 08/29/22 08:27 Glucagon (Glucagon For Inj 1 Mg Vial) 1 mg SQ UD PRN; Protocol PRN Reason: Hypoglycemia Protocol Stop: 08/29/22 08:27 Glucose (Glucose 10 Tab/Tube) 4 - 8 tab PO UD PRN; Protocol PRN Reason: Hypoglycemia Treatment Stop: 08/29/22 08:27 Glucose (Glucose 40% Gel 15 Gm Tube) 15 - 30 gm PO UD PRN; Protocol PRN Reason: Hypoglycemia Protocol Stop: 08/29/22 08:27 Heparin Sodium (Porcine) (Heparin Sod 5,000 Unit/0.5 Ml Vial) 5,000 units SQ Q12 [facility] Stop: 08/29/22 08:59 Last Admin: 08/03/22 07:48 Dose: 5,000 units Parenteral Electrolytes (Plasma-Lyte A Ph 7.4) 1,000 mls @ 75 mls/hr IV .[id number] [facility] Stop: 08/29/22 00:59 Last Admin: 08/03/22 14:57 Dose: 75 mls/hr Promethazine HCl 12.5 mg/ (Sodium Chloride) 50.5 mls @ 202 mls/hr IV Q6H PRN PRN Reason: Nausea And Vomiting Stop: 08/30/22 13:33 Last Infusion: 07/31/22 14:33 Dose: Infused Insulin Aspart (Insulin Aspart Per Unit Charge) 0 units SC ACHS [facility] Stop: 08/29/22 11:29 Last Admin: 08/03/22 11:56 Dose: 4 units Ketorolac Tromethamine (Ketorolac Tromethamine 15 Mg/Ml Vial) 15 mg IV Q6H PRN PRN Reason: Pain Stop: 08/03/22 16:19 Last Admin: 08/02/22 21:14 Dose: 15 mg Levothyroxine Sodium (Levothyroxine Sodium 125 Mcg Tablet) 125 mcg PO DAILYBB [facility] Stop: 08/29/22 06:29 Last Admin: 08/03/22 06:22 Dose: 125 mcg Lidocaine HCl (Lidocaine Viscous 2% 15 Ml Udc) 15 ml MT TID PRN PRN Reason: Pain Stop: 09/01/22 12:30 Magnesium Hydroxide (Magnesium Hydroxide Susp 30 Ml Udc) 30 ml PO Q12H PRN PRN Reason: Constipation Stop: 08/28/22 15:27 Metoprolol Succinate (Metoprolol Succ 50mg Ext Rel Tab) 50 mg [facility] Stop: 08/30/22 08:59 Last Admin: 08/03/22 07:47 Dose: 50 mg Mirabegron (Mirabegron Er 25 Mg Tab) 25 mg PO [facility] Stop: 08/29/22 08:59 Last Admin: 08/03/22 07:47 Dose: 25 mg Miscellaneous (Carbohydrates For Hypoglycemia ) 15 - 30 gm PO UD PRN PRN Reason: Hypoglycemia Protocol Stop: 08/29/22 08:27 Ondansetron HCl (Ondansetron Inj 2 Mg/Ml 2 Ml Vial) 4 mg IV Q6H PRN PRN Reason: Nausea Stop: 08/28/22 15:27 Last Admin: 07/31/22 11:49 Dose: 4 mg Pantoprazole Sodium (Pantoprazole 40 Mg Tab) [facility] Stop: 08/29/22 06:29 Last Admin: 08/03/22 06:22 Dose: 40 mg Polyethylene Glycol (Polyethylene (Miralax) 17 Gm Pack) 17 gm PO DAILY PRN PRN Reason: Constipation Stop: 08/28/22 15:27 Vitamin D (Cholecalciferol 1,000 Units 25 Mcg Tab) 3,000 units PO DAILY [facility] Stop: 08/29/22 08:59 Last Admin: 08/03/22 07:48 Dose: 3,000 units (6) T2DM (type 2 diabetes mellitus) Diabetes mellitus complication status: without complication Diabetes mellitus residential insulin use: without residential use Qualified Code(s): E11.9 - Type 2 diabetes mellitus without complications
[2022-08-03] MEDS ORDERED: IBUPROFEN 200 MG TAB PO STA (20:22)
[2022-08-03] MEDS: ASPIRIN 81 MG ECTAB PO SCH (21:00)
[2022-08-04] MEDS: PLASMA-LYTE A 1,000 ML IV SCH (05:32)
[2022-08-04] MEDS: PANTOprazole 40 MG TAB PO SCH (05:36)
[2022-08-04] MEDS: LEVOTHYROXINE SODIUM 125 MCG TABLET PO SCH (05:36)
[2022-08-04 07:45] LABS: Hematocrit (blood only) 34.1 % (37.0-47.0); Hemoglobin 10.9 g/dl (12.0-16.0); Mean Corpuscular Hemoglobin 26.9 pg (25.0-34.0); Mean Corpuscular Volume 84.2 fL (80.0-100.0); Mean Platelet Volume 10.6 fL (9.4-12.4); Nucleated RBC # (auto) 0.02 K/uL (0-0.12); Nucleated RBC % (auto) 0.3 %; Platelet Count 141 K/uL (130-400); RDW Coefficient of Variation 12.3 % (11.5-14.5); RDW Standard Deviation 37.3 fL (36.4-46.3); Red Blood Count 4.05 M/uL (4.20-5.40); White Blood Count 6.01 K/ul (4.8-10.8)
[2022-08-04] MEDS: CHOLECALCIFEROL 1,000 UNITS 25 MCG TAB PO SCH (07:45)
[2022-08-04] MEDS: AMOXICILLIN/CLAVULANATE 875 MG TAB PO SCH ×2 (07:45→17:00)
[2022-08-04] MEDS: HEPARIN SOD 5,000 UNIT/0.5 ML VIAL SQ SCH ×2 (07:46→20:55)
[2022-08-04] MEDS: CALCIUM 600MG + VIT D 400 IU TAB PO SCH (07:46)
[2022-08-04] MEDS: MIRABEGRON ER 25 MG TAB PO SCH (07:46)
[2022-08-04] MEDS: METOPROLOL SUCC 50MG EXT REL TAB PO SCH ×2 (07:46→20:56)
[2022-08-04] MEDS: INSULIN ASPART PER UNIT CHARGE SC SCH ×4 (07:57→20:55)
[2022-08-04 08:00] LABS: BUN Creatinine Ratio 16.2 (10-20); Calcium 8.3 mg/dl (8.6-10.3); Creatinine Clr Calc Pharmacy 139.7 ml/min; Est GFR (African American) 118.6 ml/min; Est GFR (Non-African American) 102.4 ml/min; Potassium 3.3 mmol/L (3.5-5.1)
[2022-08-04 08:07] LABS: Basophils # (auto) 0.07 K/uL (0-0.2); Basophils % (auto) 1.2 %; Eosinophils # (auto) 0.19 K/uL (0-0.50); Eosinophils % (auto) 3.2 %; Immature Granulocytes # (auto) 0.48 K/uL (0.01-0.20); Lymphocytes # (auto) 1.19 K/uL (1.2-3.4); Lymphocytes % (auto) 19.8 %; Monocytes # (auto) 0.62 K/uL (0.11-0.59); Monocytes % (auto) 10.3 %; Neutrophils # (auto) 3.46 K/uL (1.40-6.50); Neutrophils % (auto) 57.5 %
[2022-08-04] MEDS ORDERED: POTASSIUM CHLORIDE CRTAB 20 MEQ TABCR PO ONE (08:53)
[2022-08-04 12:03] LABS: iSTAT Creatinine 0.6 mg/dl (0.6-1.3); iSTAT Hemoglobin 15.6 g/dl (12.0-16.0); iSTAT Ionized Calcium 0.98 mmol/l (1.12-1.32); iSTAT Potassium 3.1 mmol/L (3.3-5.0)
--- NOTE | 2022-08-04 14:22 | CT Scan Report ---
CT head/brain wo con CLINICAL HISTORY: 77 years-old Female with transient blurry vision. Acute blurry vision TECHNIQUE: Multiple axial CT images of the head were obtained without contrast. A dose lowering tech nique was utilized adhering to the principles of ALARA. CT DOSE: 823.94 mGycm COMPARISON: Head CT 07/29/2022 FINDINGS: No acute intracranial hemorrhage, midline shift, intracranial mass, hydrocephalus, territorial ischem ia or abnormal extra-axial collection. Involutional changes with chronic microvascular ischemic disea se. Cerebral vascular calcifications. The calvarium is intact. Partial ethmoidectomy. Minimal mucosal thickening of the left maxillary sin us. Mastoid air cells are generally clear. Prior bilateral lens repair. IMPRESSION: No acute intracranial abnormality. ACT 112: Negative or not required by law. The above report was generated using voice recognition software. It may contain grammatical, syntax o r spelling errors. Electronically signed by: Elijah Holt M.D. 08/04/2022 2:21 PM
--- NOTE | 2022-08-04 15:37 | CT Scan Report ---
CERVICAL SPINE CT CT DOSE: 466.95 mGycm HISTORY: neck pain TECHNIQUE: Multiaxial CT images of the cervical spine were performed and reformatted in the sagittal and coronal plane without the use of contrast. A dose lowering technique was utilized adhering to th e principles of ALARA. COMPARISON: Cervical spine radiograph 06/13/2017. FINDINGS: No fractures. No subluxation. Prevertebral soft tissues and the C1-C2 interval are intact. No pneumothorax. There is an aberrant right subclavian artery noted. Partially visualized small right pleural effusion. Moderate facet degenerative changes throughout the cervical spine. Mild disc space narrowing and small endplate osteophytes from C3-4 through C7. IMPRESSION: 1. No fracture or subluxation within the cervical spine. 2. Degenerative changes as described above. 3. Small right pleural effusion. ACT 112: Negative or not required by law. Electronically signed by: Tj Steve M.D. 08/04/2022 3:36 PM
--- NOTE | 2022-08-04 16:41 | Hospitalist Progress Note ---
Date of Service August 04, 2022 Assessment & Plan (1) Sepsis: Plan: Septic shock secondary to complicated urinary tract infection obstructive uropathy secondary to calculus --CT ABD:7 mm left ureteropelvic junction calculus which results in mild to mo derate left hydronephrosis with moderate perinephric fluid. Mild right collecting system dilatation. No right ureteral calculi. No bowel obstruction. -- Blood cultures negative -- Urine culture growing Klebsiella pneumonia --S/P emergent cystoscopy and left ureteral stent placement by Dr. Suarez on 07/29/22 -- Pressors discontinued --IV Zosyn, vancomycin transition to cefepime, transition to Augmentin -- Needs to complete 2-week course of antibiotics Needs follow-up with urology upon discharge Acute metabolic and cephalopathy Likely secondary to sepsis Allergic reaction to morphine is considered-difficulty with breathing with morphine as noted from 07/29/2022 Received Benadryl --CT head:No acute intracranial abnormality. -- Mental status seem to be back to baseline Electrolyte imbalance Severe hypokalemia and hypocalcemia Replace and monitor Cervicalgia Likely due to degenerative disc disease --Neck CT:No fractures. No subluxation. Prevertebral soft tissues and the C1-C2 interval are intact. No pneumothorax. There is an aberrant right subclavian artery noted. Partially visualized small right pleural effusion. Moderate facet degenerative changes throughout the cervical spine. Mild disc space narrowing and small endplate osteophytes from C3-4 through C7. -- Symptomatic management (2) Obstruction of left ureteropelvic junction (UPJ) due to stone: Plan: Needs follow-up with urology upon discharge (3) HLD (hyperlipidemia): (4) TESHA (obstructive sleep apnea): Plan: As per prior hospitalist Acute hypoxic respiratory failure -Underlying TESHA, likely obesity hypoventilation syndrome. Maintain O2sat > 90% Complicating respiratory symptoms with infection and sepsis Has been on CPAP to maintain saturation Appreciate input from horse trader 2 steps O2 saturation test recommended 2 L of oxygen via nasal cannula with ambulation Needs outpatient polysomnography Saturating well on room air currently (5) HTN (hypertension): Plan: Off pressors Blood pressure high currently Resume amlodipine Continue metoprolol (6) T2DM (type 2 diabetes mellitus): (7) Acute metabolic encephalopathy: Plan: As above (8) Allergy to morphine: Plan DVT px SQ heparin CODE STATUS Full code Disposition Patient currently not interested in rehab placement Will benefit from home health upon discharge Admission and Anticipated Discharge Date Admission Date: July 29, 2022 Subjective Patient is seen and examined at bedside States having transient blurry vision this morning which resolved Also reports neck tenderness associated with some stiffness Denies any chest pain, shortness of breath, dizziness, nausea, vomiting, abdominal pain Discussed with patient's son at bedside No other complaints Review of Systems Review of Systems: All systems reviewed & are unremarkable except as noted in Subjective Physical Exam Physical Exam: Physical Exam: Vitals signs as noted above General Appearance:Obese, ill appearing, no apparent distress Head: normocephalic, Atraumatic Eyes: normal inspection, EOMI Neck: supple, Trachea midline, +Mild R tenderness Respiratory/Chest: Normal breath sounds, basal crackles, No accessory muscle use Cardiovascular: S1, S2, No murmur Abdomen/GI:Soft, Non tender, Bowel sounds present Extremities/Musculoskeletal:normal inspection, 1+ pedal edema Neurologic/Psych:AAOX3, grossly no focal neurological deficits Skin: normal color, warm Results & Data Results & Data Vital Signs (Past 12 Hours) Vital Signs Temp Pulse Pulse Resp BP Pulse Ox O2 Del Method 08/04/22 16:20 36.9 C 90 22 169/77 H 92 Room Air 08/04/22 15:52 36.7 C 83 20 167/81 H 91 Room Air 08/04/22 15:35 92 H 08/04/22 11:43 36.7 C 80 22 179/98 H 08/04/22 09:00 Room Air, BiPAP 08/04/22 07:58 36.6 C 70 22 167/88 H 99 CPAP 08/04/22 07:30 68 Laboratory Results Short CBC 08/04/22 Range/Units 06:44 WBC 6.01 (4.8-10.8) K/ul Hgb 10.9 L (12.0-16.0) g/dl Hct 34.1 L (37.0-47.0) % Plt Count 141 (130-400) K/uL BMP 08/04/22 06:44 Sodium 143 Potassium 3.3 L Chloride 101 Carbon Dioxide 36 H BUN 6 Creatinine 0.37 L Glucose 132 H Calcium 8.3 L (6) T2DM (type 2 diabetes mellitus) Diabetes mellitus complication status: without complication Diabetes mellitus terminal computer operator insulin use: without terminal computer operator use Qualified Code(s): E11.9 - Type 2 diabetes mellitus without complications
[2022-08-04] MEDS ORDERED: amLODIPine BESYLATE 5 MG TAB PO SCH ×2 (17:00→23:45)
[2022-08-04] MEDS: ACETAMINOPHEN 325 MG TAB PO PRN (17:01)
[2022-08-04] MEDS ORDERED: DICLOFENAC SOD 1% GEL 100 GM TUBE EXT PRN (20:16)
[2022-08-04] MEDS: ASPIRIN 81 MG ECTAB PO SCH (20:55)
[2022-08-05] MEDS: PANTOprazole 40 MG TAB PO SCH (06:03)
[2022-08-05] MEDS: LEVOTHYROXINE SODIUM 125 MCG TABLET PO SCH (06:03)
[2022-08-05 07:40] LABS: Magnesium 1.2 mg/dl (1.7-2.4); Potassium 3.7 mmol/L (3.5-5.1)
[2022-08-05 07:45] LABS: BUN Creatinine Ratio 14.3 (10-20); Creatinine Clr Calc Pharmacy 119.7 ml/min; Est GFR (African American) 113.8 ml/min; Est GFR (Non-African American) 98.2 ml/min
[2022-08-05] MEDS: INSULIN ASPART PER UNIT CHARGE SC SCH ×2 (08:49→12:24)
[2022-08-05] MEDS: CHOLECALCIFEROL 1,000 UNITS 25 MCG TAB PO SCH (08:50)
[2022-08-05] MEDS: METOPROLOL SUCC 50MG EXT REL TAB PO SCH (08:50)
[2022-08-05] MEDS: AMOXICILLIN/CLAVULANATE 875 MG TAB PO SCH (08:51)
[2022-08-05] MEDS: MIRABEGRON ER 25 MG TAB PO SCH (08:51)
[2022-08-05] MEDS: HEPARIN SOD 5,000 UNIT/0.5 ML VIAL SQ SCH (08:51)
[2022-08-05] MEDS: CALCIUM 600MG + VIT D 400 IU TAB PO SCH (08:51)
[2022-08-05] MEDS: MAGNESIUM SULFATE / D5W 1 GM/100 ML BAG IV SCH ×2 (10:35→12:23)
--- NOTE | 2022-08-05 13:14 | Hospitalist Progress Note ---
Date of Service August 05, 2022 Assessment & Plan (1) Sepsis: Plan: Septic shock secondary to complicated urinary tract infection obstructive uropathy secondary to calculus --CT ABD:7 mm left ureteropelvic junction calculus which results in mild to mo derate left hydronephrosis with moderate perinephric fluid. Mild right collecting system dilatation. No right ureteral calculi. No bowel obstruction. -- Blood cultures negative -- Urine culture growing Klebsiella pneumonia --S/P emergent cystoscopy and left ureteral stent placement by Dr. Suarez on 07/29/22 -- Pressors discontinued --IV Zosyn, vancomycin transition to cefepime, transition to Augmentin -- Needs to complete 2-week course of antibiotics Discontinue Worthy today Needs follow-up with urology upon discharge Plan to discharge home today Acute metabolic and cephalopathy Likely secondary to sepsis Allergic reaction to morphine is considered-difficulty with breathing with morphine as noted from 07/29/2022 Received Benadryl --CT head:No acute intracranial abnormality. -- Mental status back to baseline Electrolyte imbalance Severe hypokalemia and hypocalcemia Replace and monitor Cervicalgia Likely due to degenerative disc disease --Neck CT:No fractures. No subluxation. Prevertebral soft tissues and the C1-C2 interval are intact. No pneumothorax. There is an aberrant right subclavian artery noted. Partially visualized small right pleural effusion. Moderate facet degenerative changes throughout the cervical spine. Mild disc space narrowing and small endplate osteophytes from C3-4 through C7. -- Symptomatic management --Improved today (2) Obstruction of left ureteropelvic junction (UPJ) due to stone: Plan: Needs follow-up with urology upon discharge (3) HLD (hyperlipidemia): (4) TESHA (obstructive sleep apnea): Plan: As per prior hospitalist Acute hypoxic respiratory failure -Underlying TESHA, likely obesity hypoventilation syndrome. Maintain O2sat > 90% Complicating respiratory symptoms with infection and sepsis Has been on CPAP to maintain saturation Appreciate input from paper slitter 2 steps O2 saturation test recommended 2 L of oxygen via nasal cannula with ambulation Needs outpatient polysomnography Saturating well on room air currently (5) HTN (hypertension): Plan: Off pressors Blood pressure high currently Resume amlodipine Continue metoprolol (6) T2DM (type 2 diabetes mellitus): (7) Acute metabolic encephalopathy: Plan: As above (8) Allergy to morphine: Plan DVT px SQ heparin CODE STATUS Full code Disposition Patient currently not interested in rehab placement Admission and Anticipated Discharge Date Admission Date: July 29, 2022 Subjective Patient is seen and examined at bedside Feels much better today Neck pain/stiffness improved Denies any chest pain, shortness of breath, dizziness, nausea, vomiting, abdominal pain Discussed with patient's son at bedside No other complaints Plan to discharge home today Review of Systems Review of Systems: All systems reviewed & are unremarkable except as noted in Subjective Physical Exam Physical Exam: Physical Exam: Vitals signs as noted above General Appearance:Obese, ill appearing, no apparent distress Head: normocephalic, Atraumatic Eyes: normal inspection, EOMI Neck: supple, Trachea midline, +Mild R tenderness Respiratory/Chest: Normal breath sounds, basal crackles, No accessory muscle use Cardiovascular: S1, S2, No murmur Abdomen/GI:Soft, Non tender, Bowel sounds present Extremities/Musculoskeletal:normal inspection, 1+ pedal edema Neurologic/Psych:AAOX3, grossly no focal neurological deficits Skin: normal color, warm Results & Data Results & Data Vital Signs (Past 12 Hours) Vital Signs Temp Pulse Pulse Resp BP Pulse Ox O2 Del Method 08/05/22 11:38 36.9 C 93 H 18 162/96 H 90 Room Air 08/05/22 08:00 73 08/05/22 08:00 Room Air 08/05/22 07:48 36.7 C 82 18 169/81 H 90 Room Air 08/05/22 04:35 36.5 C 74 16 154/81 H 99 BiPAP 08/05/22 03:09 82 19 96 FiO2 08/05/22 11:38 08/05/22 08:00 08/05/22 08:00 08/05/22 07:48 08/05/22 04:35 35 08/05/22 03:09 35 Laboratory Results BMP 08/05/22 06:31 Sodium 141 Potassium 3.7 Chloride 98 Carbon Dioxide 35 H BUN 6 Creatinine 0.42 L Glucose 144 H Calcium 9.0 (6) T2DM (type 2 diabetes mellitus) Diabetes mellitus complication status: without complication Diabetes mellitus intermediate insulin use: without intermediate use Qualified Code(s): E11.9 - Type 2 diabetes mellitus without complications
--- NOTE | 2022-08-05 13:31 | Discharge Summary ---
Date of Service August 05, 2022 Admission HPI Per Admitting Provider This is a 76-year-old female who has a significant past medical history of HTN, HLD, ascending aortic dilatation, TESHA noncompliant with CPAP, T2DM, hyperparathyroidism status post parathyroidectomy, history of papillary thyroid carcinoma, senile osteoporosis, vitamin D deficiency, MDD, renal angiomyolipoma who presents to ED secondary to left abdominal pain which began this morning at 8am. She also had dry heaving. History of kidney stones and found to have a 7 mm left ureteropelvic junction with mild-mod hydronephrosis. In the ER, she received morphine, phenergan, zosyn. After receiving the morphine, her son reports that she had "uncontrollable shivering/shakes" and upon further questioning from patient she may have a morphine allergy (it has since been added to her allergy list). She then received benadryl and albuterol then went for CT A/P. After receiving benadryl she has been very drowsy. History obtained by speaking with her son and ER provider. Son lives in apartment above patient. Son reports mom has been in her usual state of health until this morning when she called him stating she was unwell. Admission Exam Per Admitting Provider Physical Exam Physical Exam: drowsy, somnolent, opens eyes to voice ENMT: normocephalic, atraumatic Neck: neck thick Respiratory: rapid breathing, no audible wheezing or rhonchi Cardiovascular: tachycardic, no murmurs/rubs/gallops Gastrointestinal (Abdomen): soft, non tender, non distended Musculoskeletal: no edema, no cyanosis or clubbing, warm Skin: no ulcer, no rash, no redness, no bruising noted on exposed skin Neurologic: somnolent, opens eyes to voice and touch, unable to answer questions Principal Diagnosis Septic shock Complicated Urinary Tract Infection Obstructive uropathy Acute metabolic encephalopathy Hypokalemia Hypocalcemia Hypomagnesemia Discharge Data Allergies Allergy/AdvReac Type Severity Reaction Status Date / Time cortisone Allergy Intermediate HEART Verified 04/15/22 10:13 PALPITATIONS & RASH Corticosteroids Allergy Unknown Unknown Verified 04/15/22 10:13 (Glucocorticoids) Sulfa (Sulfonamide Allergy Unknown Unknown Verified 04/15/22 10:13 Antibiotics) morphine AdvReac Difficulty Verified 07/29/22 11:34 Breathing Consultations 07/29/22 12:36 Consult Urology Stat 07/29/22 13:04 ED Decision to Admit Stat 07/29/22 18:36 Consult Nature Photographer Routine Procedures Performed Operation Date: 07/29/22 10:20 Actual Procedures p Cystoscopy, Left Retrograde Pyelogram, Left Stent Placement, Worthy Catheter Placement - Collins Suarez MD Laboratory Results WBC 6.01 K/ul (4.8-10.8) 08/04/22 06:44 RBC 4.05 M/uL (4.20-5.40) L 08/04/22 06:44 Hgb 10.9 g/dl (12.0-16.0) L 08/04/22 06:44 POC Hgb 13.6 g/dl (12.0-16.0) 07/29/22 22:59 Hct 34.1 % (37.0-47.0) L 08/04/22 06:44 POC Hct 40 % (37-47) 07/29/22 22:59 MCV 84.2 fL (80.0-100.0) 08/04/22 06:44 MCH 26.9 pg (25.0-34.0) 08/04/22 06:44 MCHC 32.0 g/dL (32.0-36.0) 08/04/22 06:44 RDW Std Deviation 37.3 fL (36.4-46.3) 08/04/22 06:44 RDW Coeff of Sallie 12.3 % (11.5-14.5) 08/04/22 06:44 Plt Count 141 K/uL (130-400) 08/04/22 06:44 MPV 10.6 fL (9.4-12.4) 08/04/22 06:44 Immature Gran % (Auto) 8.0 % 08/04/22 06:44 Neut % (Auto) 57.5 % 08/04/22 06:44 Lymph % (Auto) 19.8 % 08/04/22 06:44 Scurry % (Auto) 10.3 % 08/04/22 06:44 Eos % (Auto) 3.2 % 08/04/22 06:44 Baso % (Auto) 1.2 % 08/04/22 06:44 Neut # (Auto) 3.46 K/uL (1.40-6.50) 08/04/22 06:44 Lymph # (Auto) 1.19 K/uL (1.2-3.4) L 08/04/22 06:44 Scurry # (Auto) 0.62 K/uL (0.11-0.59) H 08/04/22 06:44 Eos # (Auto) 0.19 K/uL (0-0.50) 08/04/22 06:44 Baso # (Auto) 0.07 K/uL (0-0.2) 08/04/22 06:44 Immature Gran # (Auto) 0.48 K/uL (0.01-0.20) H 08/04/22 06:44 Absolute Nucleated RBC 0.02 K/uL (0-0.12) 08/04/22 06:44 Nucleated RBC % (auto) 0.3 % 08/04/22 06:44 Neutrophils % (Manual) 92 % 07/31/22 04:19 Lymphocytes % (Manual) 6 % 07/31/22 04:19 Monocytes % (Manual) 2 % 07/31/22 04:19 Metamyelocytes % (Man) 4 % 07/30/22 04:55 Neutrophils # (Manual) 12.59 K/uL (1.40-6.50) H 07/31/22 04:19 Total Absolute Neuts 12.59 K/uL (1.4-6.5) H 07/31/22 04:19 Lymphocytes # (Manual) 0.82 K/uL (1.2-3.4) L 07/31/22 04:19 Total Abs Lymphocytes 0.82 K/uL (1.2-3.4) L 07/31/22 04:19 Monocytes # (Manual) 0.27 K/uL (0.11-0.59) 07/31/22 04:19 Metamyelocytes # (Man) 0.94 K/uL (0-0) H 07/30/22 04:55 Toxic Vacuolation 1+ 08/01/22 05:56 Dohle Bodies 1+ 07/30/22 04:55 Platelet Estimate Decreased (Normal) L 07/31/22 04:19 RBC Morphology Unremarkable 07/31/22 04:19 Echinocytes 1+ 08/01/22 05:56 PT 11.8 Seconds (9.0-12.0) 07/31/22 04: INR 1.1 (0.9-1.1) 07/31/22 04:19 APTT 23.3 Seconds (21.0-31.0) 07/29/22 10:25 PTT Ratio 0.8 07/29/22 10:25 Sample Site R Radial 07/29/22 22:59 POC pH 7.34 (7.35-7.45) L 07/29/22 22:59 POC pCO2 40 mmHg (35-46) 07/29/22 22:59 POC pO2 79 mmHg (80-95) L 07/29/22 22:59 POC HCO3 21 sean/L (19-24) 07/29/22 22:59 POC Total CO2 22 mmol/L (24-31) L 07/29/22 22:59 POC Base Excess -5.0 sean/L (-9-1.8) 07/29/22 22:59 ABG pH (Temp Correct) 7.335 (7.35-7.45) L 07/29/22 22:59 ABG pCO2 (Temp Corrct 40 mmHg (35-46) 07/29/22 22:59 POC ABG pO2 at Pt Temp 79 07/29/22 22:59 POC ABG O2 Sat 95.0 % (90-95) 07/29/22 22:59 Eren Test Pass 07/29/22 22:59 O2 Delivery Device BIPAP 07/29/22 22:59 POC FiO2 40 % 07/29/22 22:59 POC Sodium 140 mmol/L (135-144) 07/29/22 22:59 Sodium 141 mmol/L (136-145) 08/05/22 06:31 POC Potassium 2.2 mmol/L (3.3-5.0) L* 07/29/22 22:59 Potassium 3.7 mmol/L (3.5-5.1) 08/05/22 06:31 POC Chloride 99 mmol/L (101-112) L 07/29/22 10:51 POC Chloride 99 mmol/L (101-112) L 07/29/22 10:51 Chloride 98 mmol/L (98-107) 08/05/22 06:31 Carbon Dioxide 35 mmol/L (21-32) H 08/05/22 06:31 POC Total CO2 28 mmol/L (24-31) 07/29/22 10:51 POC Total CO2 28 mmol/L (24-31) 07/29/22 10:51 Anion Gap 8 (3-11) 08/05/22 06:31 POC Anion Gap 19.0 mmol/L (16-25) 07/29/22 10:51 POC Anion Gap 19.0 mmol/L (16-25) 07/29/22 10:51 POC BUN 7 mg/dl (7-18) 07/29/22 10:51 POC BUN 7 mg/dl (7-18) 07/29/22 10:51 BUN 6 mg/dl (6-23) 08/05/22 06:31 Creatinine 0.42 mg/dl (0.6-1.2) L 08/05/22 06:31 POC Creatinine 0.6 mg/dl (0.6-1.3) 07/29/22 10:51 POC Creatinine 0.6 mg/dl (0.6-1.3) 07/29/22 10:51 Est Cr Clr Drug Dosing 119.7 ml/min 08/05/22 06:31 Est GFR ( Amer) 113.8 ml/min 08/05/22 06:31 Est GFR (Non-Af Amer) 98.2 ml/min 08/05/22 06:31 BUN/Creatinine Ratio 14.3 (10-20) 08/05/22 06:31 Glucose 144 mg/dl (70-99(Fasting)) H 08/05/22 06:31 POC Glucose 202 mg/dl (70-99) H 08/05/22 11:28 POC Glucose (other) 219 mg/dl (70-99) H 07/30/22 08:10 Lactate 3.6 mmol/L (0.4-2.0) H* 07/30/22 07:56 Calcium 9.0 mg/dl (8.6-10.3) 08/05/22 06:31 POC Ioniz Calcium Naren 0.98 mmol/l (1.12-1.32) L 07/29/22 10:51 POC Ioniz Calcium Naren 0.98 mmol/l (1.12-1.32) L 07/29/22 10:51 Ionized Calcium 0.95 mmol/L (1.12-1.32) L 07/30/22 04:56 Phosphorus 2.4 mg/dl (2.5-4.9) L 08/01/22 05:56 Magnesium 1.2 mg/dl (1.7-2.4) L 08/05/22 06:31 Total Bilirubin 2.2 mg/dl (0.2-1.0) H 07/30/22 07:56 Direct Bilirubin 0.6 mg/dl (0-0.2) H 07/30/22 07:56 AST 40 U/L (13-39) H 07/30/22 07:56 ALT 24 U/L (7-52) 07/30/22 07:56 Alkaline Phosphatase 78 U/L (34-104) 07/30/22 07:56 Troponin I High Sens 8.4 pg/ml (0-14) 07/29/22 10:25 Total Protein 5.8 gm/dl (6.0-8.3) L 07/30/22 07:56 Albumin 3.6 gm/dl (3.4-5.0) 07/30/22 07:56 Globulin 2.4 gm/dl (2.5-4.0) L 07/29/22 19:18 Albumin/Globulin Ratio 1.4 (0.9-2) 07/29/22 19:18 Lipase 30 U/L (11-82) 07/29/22 10:25 Procalcitonin 108.36 ng/ml (0-0.5) H 07/29/22 19:18 TSH 5.525 uIu/ml (0.300-4.500) H 07/29/22 19:18 Free T4 1.14 ng/dl (0.61-1.60) 07/29/22 19:18 Urine Color Yellow 07/29/22 11:08 Urine Appearance Clear (Clear) 07/29/22 11:08 Urine pH 7.5 (4.5-7.5) 07/29/22 11:08 Ur Specific [place] 1.012 (1.000-1.030) 07/29/22 11:08 Urine Protein Negative (Negative) 07/29/22 11:08 Urine Glucose (UA) Negative (Negative) 07/29/22 11:08 Urine Ketones 1+ (Negative) H 07/29/22 11:08 Urine Blood Trace (Negative) H 07/29/22 11:08 Urine Nitrite Negative (Negative) 07/29/22 11:08 Urine Bilirubin Negative (Negative) 07/29/22 11:08 Urine Urobilinogen Negative (Negative) 07/29/22 11:08 Ur Leukocyte Esterase 2+ (Negative) H 07/29/22 11:08 Urine WBC (Auto) 10-30 /hpf (0-5) H 07/29/22 11:08 Urine RBC (Auto) 0-4 /hpf (0-4) 07/29/22 11:08 U Hyaline Cast (Auto) 1-5 /lpf (0-5) 07/29/22 11:08 U Epithel Cells (Auto) >30 /lpf (0-5) H 07/29/22 11:08 Urine Bacteria (Auto) 4+ (Negative) H 07/29/22 11:08 Nasal Screen MRSA (PCR) Negative (Negative) 07/29/22 17:45 Stl C. diff Tox B Gene Negative Cdiff Gene (Neg) 07/31/22 03:43 SARS-CoV-2, RNA, NAAT NEGATIVE (NEGATIVE) 07/29/22 10:00 Impressions Retrograde Pyelogram 07/29/22 00:00 FL retrograde includes kub CLINICAL HISTORY: CYSTO,RETROGRADE COMPARISON STUDY: CT of the abdomen and pelvis performed earlier today. FLUOROSCOPY TIME: 5.9 seconds. Ka, r: 1.95 mGy FLUOROSCOPIC IMAGES: 3 FINDINGS: Fluoroscopy was provided during left retrograde pyelogram with left ureteral stent insertion. Proximal aspect of the ureteral stent projects over the left renal pelvis. IMPRESSION: Fluoroscopy provided during left retrograde pyelogram and left ureteral stent insertion. ACT 112: Negative or not required by law. Electronically signed by: Abundio Olivo M.D. 07/29/2022 8:54 PM Abdomen/Pelvis CT 07/29/22 09:53 CT OF THE ABDOMEN AND PELVIS WITH CONTRAST CLINICAL HISTORY: Vomiting. Left lower quadrant pain. COMPARISON STUDY: CT of the abdomen and pelvis April 02, 2022. TECHNIQUE: Following IV administration of 120 mL of Optiray, axial images of the abdomen and pelvis were obtained from the lung bases to the proximal femurs. Images were reviewed in the axial, sagittal, and coronal planes. IV contrast was administered without complication. Automated exposure control was utilized for the study. A dose lowering technique was utilized adhering to the principles of ALARA. FINDINGS: Please note that the chest CT will be reported separately. A 7 mm left ureteropelvic junction calculus results in mild to moderate left hydronephrosis with moderate perinephric fluid. There is mild dilatation of the right collecting system. No additional urinary calculi are identified. 1.3 cm hypodense lesion within the superior aspect of the spleen is indeterminate but statistically benign. The liver, adrenal glands and pancreas are unremarkable. There are numerous subcentimeter bilateral renal lesions. These are too small to characterize but likely reflect cysts. There is no evidence for a bowel obstruction. Submucosal fat deposition within the colon is chronic. There is no lymphadenopathy. No fluid collection is present to suggest an abscess. Major vasculature is patent. There is no biliary or pancreatic ductal dilatation. The gallbladder is not visualized. No acute fractures. No suspicious osseous lesions within the visualized skeletal structures. IMPRESSION: 1. 7 mm left ureteropelvic junction calculus which results in mild to moderate left hydronephrosis with moderate perinephric fluid. 2. Mild right collecting system dilatation. No right ureteral calculi. 3. No bowel obstruction. ACT 112: Negative or not required by law. Electronically signed by: Abundio Olivo M.D. 07/29/2022 12:32 PM Chest X-Ray 07/29/22 09:54 SINGLE VIEW CHEST CLINICAL HISTORY: Vomiting FINDINGS: An AP, portable, upright chest radiograph is compared to study dated 08/26/2021 and correlated with chest CT dated 02/12/2020. The examination is degraded by portable technique and apical lordotic positioning. The heart is enlarged noting atherosclerotic calcification of the thoracic aorta. The pulmonary vascular is noncongested. Chronic interstitial thickening is similar to previous. The lungs and pleural spaces are clear noting dependent atelectasis. No pneumothorax is seen. The skeletal structures are osteopenic. The bony thorax is grossly intact. IMPRESSION: Cardiomegaly with no acute cardiopulmonary abnormality identified. ACT 112: Negative or not required by law. Electronically signed by: Kevin Cano M.D. 07/29/2022 10:45 AM Chest CTA 07/29/22 11:56 CT ANGIOGRAM OF THE CHEST CLINICAL HISTORY: Vomiting. Atypical chest pain. COMPARISON STUDY: Chest x-ray dated 07/29/2022. Chest CT dated 02/12/2020. TECHNIQUE: Following the IV administration of 120 cc of Optiray 320, CT angiogram of the chest was performed from the upper abdomen to the thoracic inlet utilizing the pulmonary embolus protocol. Images are reviewed in the axial, sagittal, and coronal planes. 3-D MIPS images are created and assessed. IV contrast was administered without complication. A dose lowering technique was utilized adhering to the principles of ALARA. The examination is degraded by large body habitus, and by streak artifact from the body wall abutting its etiology. There is also streak artifact from the arms which could not be elevated of the chest. There is also motion artifact. CT DOSE: 3143.92 mGy.cm FINDINGS: Thyroid: Imaged portions of the thyroid gland are normal in size and attenuation. Thoracic aorta: There is atherosclerotic calcification of the thoracic aorta comment which is normal in caliber and demonstrates variant 3-vessel arch anatomy. 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 No dissection is seen. Pulmonary vasculature: The pulmonary trunk is mildly dilated measuring 3.3 cm in diameter. This suggests pulmonary artery hypertension. There are no filling defects identified in the main or lobar pulmonary branches to suggest pulmonary embolus. The segmental and subsegmental branches are not well evaluated due to significant motion artifact. Heart: The heart is enlargement and without pericardial effusion. The coronary a rteries are densely calcified. Lungs and pleural spaces: Evaluation of the lung parenchyma is significantly degraded by motion artifact. No airspace consolidation or pleural effusion is identified. There is bibasilar scarring/atelectasis. There is a 4 mm right lower lobe pulmonary nodule on image #124 and a 3 mm right minimal lobe nodule on image #125. A 4 mm lingular nodule is seen on image #144. These are likely unchanged but not well assessed due to significant motion artifact. Mediastinum: There is no mediastinal lymphadenopathy. Maribel: Clear. Axillae: There is no axillary lymphadenopathy. Upper abdomen: The liver is enlarged and steatotic. A small hiatal hernia is noted. Left-sided pelvic stranding is partially imaged. Cc abdominal CT report performed concurrently for detailed findings. Skeletal structures: The skeletal structures are osteopenic. Degenerative change is noted in the thoracic spine. No lytic or blastic bony lesions are seen. There are chronic/healed right-sided rib fractures. Soft tissues: Bilateral breast implants are in place. IMPRESSION: 1. Streak and motion compromised examination. 2. There is no evidence of central pulmonary embolus in the main or lobar pulmonary arteries. The segmental and subsegmental branches were not well assessed due to significant motion artifact. 3. Cardiomegaly. 4. There is no airspace consolidation typical for pneumonia or pleural effusion. 5. Subcentimeter pulmonary nodules are again noted. These are not well evaluated due to motion artifact and likely unchanged from previous. 6. Hepatomegaly and hepatic steatosis. 7. Additional findings as above. ACT 112: Negative or not required by law. Electronically signed by: Kevin Cano M.D. 07/29/2022 12:[address] 08/04/22 12:[address] DOSE: 466.95 mGycm HISTORY: neck pain TECHNIQUE: Multiaxial CT images of the cervical spine were performed and reformatted in the sagittal and coronal plane without the use of contrast. A dose lowering technique was utilized adhering to the principles of ALARA. COMPARISON: Cervical spine radiograph 06/13/2017. FINDINGS: No fractures. No subluxation. Prevertebral soft tissues and the C1-C2 interval are intact. No pneumothorax. There is an aberrant right subclavian artery noted. Partially visualized small right pleural effusion. Moderate facet degenerative changes throughout the cervical spine. Mild disc space narrowing and small endplate osteophytes from C3-4 through C7. IMPRESSION: 1. No fracture or subluxation within the cervical spine. 2. Degenerative changes as described above. 3. Small right pleural effusion. ACT 112: Negative or not required by law. Electronically signed by: Tj Steve M.D. 08/04/2022 3:[address] 08/04/22 12:35 CT head/brain wo con CLINICAL HISTORY: 77 years-old Female with transient blurry vision. Acute blurry vision TECHNIQUE: Multiple axial CT images of the head were obtained without contrast. A dose lowering technique was utilized adhering to the principles of ALARA. CT DOSE: 823.94 mGycm COMPARISON: Head CT 07/29/2022 FINDINGS: No acute intracranial hemorrhage, midline shift, intracranial mass, hydrocephalus, territorial ischemia or abnormal extra-axial collection. Involutional changes with chronic microvascular ischemic disease. Cerebral vascular calcifications. The calvarium is intact. Partial ethmoidectomy. Minimal mucosal thickening of the left maxillary sinus. Mastoid air cells are generally clear. Prior bilateral lens repair. IMPRESSION: No acute intracranial abnormality. ACT 112: Negative or not required by law. The above report was generated using voice recognition software. It may contain grammatical, syntax or spelling errors. Electronically signed by: Elijah Holt M.D. 08/04/2022 2:21 PM Ordered Studies 07/29/22 FL retrograde includes kub Routine 07/29/22 09:53 CT abd pelvis IV con only Stat 07/29/22 11:51 CT head/brain wo con Stat 07/29/22 11:56 CT angio chest PE protocol Stat 08/04/22 12:35 CT head/brain wo con Urgent CT neck [CT cervical spine wo con] Urgent Hospital Course (1) Sepsis: Septic shock secondary to complicated urinary tract infection obstructive uropathy secondary to calculus --CT ABD:7 mm left ureteropelvic junction calculus which results in mild to moderate left hydronephrosis with moderate perinephric fluid. Mild right collecting system dilatation. No right ureteral calculi. No bowel obstruction. -- Blood cultures negative -- Urine culture growing Klebsiella pneumonia --S/P emergent cystoscopy and left ureteral stent placement by Dr. Suarez on 07/29/22 -- Pressors discontinued --IV Zosyn, vancomycin transition to cefepime, transition to Augmentin -- Needs to complete 2-week course of antibiotics Discontinue Worthy today Needs follow-up with urology upon discharge Plan to discharge home today Acute metabolic and cephalopathy Likely secondary to sepsis Allergic reaction to morphine is considered-difficulty with breathing with morphine as noted from 07/29/2022 Received Benadryl --CT head:No acute intracranial abnormality. -- Mental status back to baseline Electrolyte imbalance Severe hypokalemia and hypocalcemia Replace and monitor Cervicalgia Likely due to degenerative disc disease --Neck CT:No fractures. No subluxation. Prevertebral soft tissues and the C1-C2 interval are intact. No pneumothorax. There is an aberrant right subclavian artery noted. Partially visualized small right pleural effusion. Moderate facet degenerative changes throughout the cervical spine. Mild disc space narrowing and small endplate osteophytes from C3-4 through C7. -- Symptomatic management --Improved today (2) Obstruction of left ureteropelvic junction (UPJ) due to stone: Needs follow-up with urology upon discharge (3) HLD (hyperlipidemia): (4) TESHA (obstructive sleep apnea): As per prior hospitalist Acute hypoxic respiratory failure -Underlying TESHA, likely obesity hypoventilation syndrome. Maintain O2sat > 90% Complicating respiratory symptoms with infection and sepsis Has been on CPAP to maintain saturation Appreciate input from patient carrier 2 steps O2 saturation test recommended 2 L of oxygen via nasal cannula with ambulation Needs outpatient polysomnography Saturating well on room air currently (5) HTN (hypertension): Off pressors Blood pressure high currently Resume amlodipine Continue metoprolol (6) T2DM (type 2 diabetes mellitus): (7) Acute metabolic encephalopathy: As above (8) Allergy to morphine: Plan DVT px SQ heparin CODE STATUS Full code Disposition Patient currently not interested in rehab placement Total Time Total Time Spent Total Time Spent (In Minutes): 56 minutes Discharge Plan Discharge Items Patient Disposition: Home - Home Health Services Reason For Visit: URETERAL STONE Discharge Diagnosis: Septic shock Complicated Urinary Tract Infection Obstructive uropathy Acute metabolic encephalopathy Hypokalemia Hypocalcemia Hypomagnesemia Activity: Per Instructions section Exercise/Sports: Gradually increase as tolerated Non-emergency contact: Primary Care Provider and Urologist Call non-emergency contact if: you have any medication questions, your symptoms worsen, your pain is concerning for you and you have a fever Follow-up/Referrals: Audra Moreno CRNP [Nurse Practitioner] - (The urology office will call you with a follow up appointment.) Gordo Clark MD [Primary Care Provider] - (Date & Time 08/10/2022 11:00 AM Provider Gordo Clark MD Department General Internal Medicine [facility] ) Diet: Carb Consistent or DM2 and Heart Healthy Addtl Attending Provider Instructions: Follow-up with your primary care physician on 08/10/2022 11:00 AM Follow-up with your urologist Audra Moreno PA-C in 1-2 weeks --- Complete the antibiotic course Augmentin as prescribed. --- Use supplemental oxygen 2 L via nasal cannula with activity as advised. --- Monitor your blood pressure regularly at home. Discuss with your physician for further adjustment of blood pressure medications as needed. Seek immediate medical attention if your symptoms reoccur or worsen Please take all medications as instructed on discharge list below. Please call if you have any questions or problems. You can reach a [facility] hospitalist on duty at [facility] 24 hours a day by calling [phone] Pending Studies at Discharge: No Stand-Alone Forms: My [facility] [address], Smoking Cessation Medications and DC Order Prescriptions: New magnesium oxide 400 mg (241.3 mg magnesium) Tablet 400 mg PO QAM 30 Days Qty: 30 1RF amoxicillin-pot clavulanate 875-125 mg Tablet 1 tab PO BIDM Qty: 20 0RF Continued levothyroxine 125 mcg tablet 125 mcg PO DAILYBB lisinopril 40 mg tablet 40 mg PO QAM aspirin [Louisa Low Dose Aspirin] 81 mg Tablet,Delayed Release (Dr/Ec) 81 mg PO HS metformin 1,000 mg tablet 500 mg PO BID Rx Instructions: 1/2 tablet dose omeprazole 20 mg capsule,delayed release(DR/EC) 20 mg PO DAILYBB calcium citrate-vitamin D3 [Calcium Citrate + D] 315 mg-5 mcg (200 unit) Tablet 1 tab PO QAM amlodipine 5 mg tablet 5 mg PO QAM spironolactone 25 mg tablet 12.5 mg PO QAM Myrbetriq 25 mg tablet extended release 24 hr 25 mg PO QAM cholecalciferol (vitamin D3) 25 mcg (1,000 unit) Tablet 3,000 unit PO DAILY Changed metoprolol succinate 50 mg tablet extended release 24 hr 50 mg PO BID Qty: 60 0RF Discharge Orders: Discharge Order (Routine); Ordered 08/05/22 Ordered By: Fred Lowe Admission Data Admit Date/Time: 07/29/22 13:26 Attending Provider: Fred Lowe Admit Provider: Catherine Davila Primary Care Provider: Gordo Clark Other Providers: Collins Suarez ; Catherine Davila ; Gregg Salas ; [facility], [facility]
[2022-08-06] MEDS ORDERED: MAGNESIUM OXIDE 400 MG TAB PO SCH (09:00)
== END 2022-08-05 16:02 | disposition home health service (06) | DRG 853 ==
LOC: ED 09:40 → SUATTDRO 13:26 → 2E 13:26 → 1E 18:29 → 2S 07-31 06:11

== ENCOUNTER 2023-08-06 15:31 | Observation (INO) ==
[2023-08-06 15:56] LABS: Basophils # (auto) 0.08 K/uL (0.00-0.20); Basophils % (auto) 0.9 %; Eosinophils # (auto) 0.21 K/uL (0.00-0.50); Eosinophils % (auto) 2.4 %; Hematocrit (blood only) 46.7 % (37.0-47.0); Hemoglobin 14.7 g/dl (12.0-16.0); Immature Granulocytes # (auto) 0.01 K/uL (0.01-0.20); Immature Granulocytes % (auto) 0.1 %; Lymphocytes # (auto) 2.65 K/uL (1.20-3.40); Lymphocytes % (auto) 29.8 %; Mean Corpuscular Hemoglobin 26.7 pg (25.0-34.0); Mean Corpuscular Hgb Conc 31.5 g/dL (32.0-36.0); Mean Corpuscular Volume 84.9 fL (80.0-100.0); Mean Platelet Volume 9.9 fL (9.4-12.4); Monocytes # (auto) 0.55 K/uL (0.11-0.59); Monocytes % (auto) 6.2 %; Neutrophils # (auto) 5.39 K/uL (1.40-6.50); Neutrophils % (auto) 60.6 %; Platelet Count 244 K/uL (130-400); RDW Coefficient of Variation 12.4 % (11.5-14.5); RDW Standard Deviation 38.4 fL (36.4-46.3); White Blood Count 8.89 K/ul (4.8-10.8)
[2023-08-06] MEDS: ASPIRIN CHEW 324 MG PO STA (16:03)
--- NOTE | 2023-08-06 16:10 | XRay Report ---
SINGLE VIEW CHEST CLINICAL HISTORY: Atypical chest pain FINDINGS: A PA chest radiograph is compared to chest x-ray and chest CT dated 07/29/2022. The heart is top normal for projection noting atherosclerotic calcification of the thoracic aorta. Chronic inters titial thickening is similar to previous. The lungs and pleural spaces are clear. No pneumothorax is seen. The skeletal structures are osteopenic. There are chronic/healed right-sided rib fractures. IMPRESSION: No active disease in the chest. ACT 112: Negative or not required by law. Electronically signed by: Kevin Cano M.D. 08/06/2023 4:08 PM
[2023-08-06 16:14] LABS: Albumin Globulin Ratio 1.5 (0.9-2); Albumin Level 4.6 gm/dl (3.4-5.0); BUN Creatinine Ratio 18.3 (10-20); Bilirubin,Total 0.8 mg/dl (0.2-1.0); Calcium 9.6 mg/dl (8.6-10.3); Creatinine Clr Calc Pharmacy 79.5 ml/min; Est GFR (African American) 100.5 ml/min; Est GFR (Non-African American) 86.7 ml/min; Globulin 3.1 gm/dl (2.5-4.0); Potassium 3.7 mmol/L (3.5-5.1); Total Protein 7.7 gm/dl (6.0-8.3)
[2023-08-06 16:20] LABS: Troponin I High Sensitivity 2.9 pg/ml (0-14)
--- NOTE | 2023-08-06 16:21 | Emergency Department Note ---
Impression & Plan Chest pain, Abnormal EKG ED Provider Note NAME: ALFRED BROWN AGE: 78 SEX: F : 1945 ARRIVES VIA: Walk-In INFORMANT: Patient, ED PROVIDER(S): Dileep Biggs DO CHIEF COMPLAINT: Chest pain HPI: The patient is a 78-year-old female who presented to the emergency department with left-sided chest pain. She describes chest pain as a heaviness and a pressure. It does worsen with deep breathing. The patient denies having any lower extremity swelling. She denies having any back pain. She denies having any abdominal pain or vomiting. She has no history of coronary artery disease in the past. She does have a history of diabetes. The patient did take aspirin as well as ibuprofen. ROS: See above HPI for pertinent positives & negatives. A total of 10 systems reviewed and were otherwise negative. PAST MEDICAL HISTORY: See Below PAST SURGICAL HISTORY: See Below FAMILY HISTORY: See Below SOCIAL HISTORY: See Below HOME MEDICATIONS: See Below ALLERGIES: See Below VITALS: See Below PHYSICAL EXAMINATION: GENERAL: Patient is awake alert in no acute distress patient is resting comfortably and showing no signs of anxiety EYES: The conjunctivae are clear. The pupils are round and reactive. EARS, NOSE, MOUTH AND THROAT: The nose is without any evidence of any deformity. NECK: The neck is nontender and supple. RESPIRATORY: Normal respiratory effort is noted there is no evidence of wheezing rhonchi or rales CARDIOVASCULAR: Regular rate and rhythm noted there no murmurs rubs or gallops normal S1 normal S2. GASTROINTESTINAL: The abdomen is soft. Abdomen is nontender. MUSCULOSKELETAL/EXTREMITIES: There is no evidence of gross deformity full range of motion is noted in the hips and shoulders. SKIN: There is no obvious evidence of any rash. There are no petechiae, pallor or cyanosis noted. NEUROLOGIC: Patient is awake alert and oriented x3 MEDICAL DECISION MAKING: The patient is a 78-year-old female who presented to the emergency department for an evaluation of chest pain. The patient describes left-sided anterior chest pain. She also had some degree of pleurisy to the chest pain. I discussed patient's laboratory and radiographic studies with her. I discussed the limitations of the emergency department workup for chest pain with her. Ultimately the patient was found to have serial troponin measurements that were negative. Her D-dimer was negative. She was not tachycardic or significantly hypoxic. The patient did have an abnormal EKG and given her past medical history as well as her family history she does appear to be high risk for coronary artery disease. For this reason I discussed her condition with the on- call [facility] hospitalist. They have agreed to evaluate the patient in the emergency department for further management and disposition. The patient was treated with aspirin in the emergency department. On reevaluation her pain was significantly improved. Triage Nursing notes reviewed. Prior medical records reviewed Vital Signs: reviewed and remarkable for no significant abnormalities Differential diagnosis: Cardiac ischemia, aortic dissection, pulmonary embolism, pneumothorax, pneumonia, pericarditis, myocarditis, esophageal rupture, GERD, cholecystitis, pancreatitis, musculoskeletal, as well as other pathologies. ER treatment provided: See below Diagnostics Interpreted by me: ECG: EKG was obtained in the emergency department. My interpretation is normal sinus rhythm at [address] depressions noted in the inferior and low lateral leads. There is no ectopy. This was compared to a tracing from September 01, 2022. The ST depression is new compared to the previous tracing. Cardiac Monitoring: An order was placed for continuous cardiac monitoring. The monitor shows a rate of 63 bpm with sinus bradycardia. Laboratory studies: As stated above and show below. Imaging studies: See below. Radiographic imaging was reviewed by myself Consultation(s): I discussed this case with Dr. Casillas who is on-call for the [facility]. Past Med/Surg History Medical History (Updated 08/06/23 @ 21:56 by Dileep Biggs DO) Barretts esophagus pt unaware - but noted in medical record. hx of egd. Poor historian Nausea and vomiting [place] [facility] [place] and woke up in intensive care. no other information given. "maybe 3 or 4 years ago" - No issues with GA for thyroidectomy/parathyroidectomy 11/03/18 at [facility] [place] Sepsis (~07/2022) Treated in [facility] as an inpatient (07/29/22-08/05/22). Doing well currently. Ovarian cancer hx - unsure of date History of uterine cancer ~40 years ago Renal angiomyolipoma Senile osteoporosis HLD (hyperlipidemia) TESHA (obstructive sleep apnea) "my machine broke down on me" - not currently using Hx of papillary thyroid carcinoma S/p thyroidectomy Hyperparathyroidism S/p parathyroidectomy HTN (hypertension) Surgical History H/O bilateral oophorectomy H/O nephrolithotomy with removal of calculi Right Hx of colonoscopy 2021 History of esophagogastroduodenoscopy (EGD) 2020 barretts, gastric polyps, gastritis, repeat 3 years History of cholecystectomy History of appendectomy History of ureter stent 2019 History of sinus surgery History of hysterectomy 1980s History of thyroidectomy total 2019 History of parathyroidectomy Family History Brother Myocardial infarction Diabetes Coronary heart disease Heart disease Hypertension Kidney disease Father Diabetes Stroke Hypertension Aunt Breast cancer Mother Schizophrenia Sister Kidney disease Social History Smoking Status: Never smoker Tobacco Type: Cigarettes Second Hand Exposure: No; Do You Dip or Chew Tobacco: Yes (hx); Hx Alcohol Use: No Hx Substance Use: No Preferred Language: Bulgarian Communication Ability: Effective Visual Impairment: No Limitations Roller Skater Required: No Beliefs That Will Affect Care: None marital status: Current Living Situation: Alone current occupational status: employed current occupation: [employer] Feels Safe at Home: Yes during the past year weight has: remained stable Seatbelt Use: always Assistive Devices: CPAP and Glasses Allergies Allergies Allergy/AdvReac Type Severity Reaction Status Date / Time morphine Allergy Severe Difficulty Verified 08/06/23 19:18 Breathing cortisone Allergy Intermediate HEART Verified 08/06/23 19:18 PALPITATIONS & RASH Sulfa (Sulfonamide Allergy Intermediate nausea and Verified 08/06/23 19:18 Antibiotics) dyspnea Corticosteroids Allergy Unknown Unknown Verified 08/06/23 19:18 (Glucocorticoids) Home Meds Home Medications Medication Instructions Recorded Confirmed levothyroxine 125 mcg tablet 125 mcg PO DAILYBB 02/12/20 08/06/23 cholecalciferol (vitamin D3) 25 1,000 unit PO QAM 08/26/21 08/06/23 mcg (1,000 unit) tablet spironolactone 25 mg tablet 12.5 mg PO QAM 08/26/21 08/06/23 mirabegron 25 mg tablet,extended 25 mg PO QAM 08/31/22 08/06/23 release 24 hr (Myrbetriq) mecobalamin (vitamin B12) 2,500 2,500 mcg PO DAILY 12/09/22 08/06/23 mcg chewable tablet omega-3 fatty acids 500 mg capsule 500 mg PO DAILY 12/09/22 08/06/23 omeprazole 20 mg capsule,delayed 20 mg PO DAILY 01/08/23 08/06/23 release Previous Rx's Medication Instructions Recorded lisinopril 40 mg tablet 40 mg PO QAM #90 tabs 11/22/22 metformin 1,000 mg tablet 500 mg (1/2 x 1,000 mg) PO BID 90 11/25/22 days #90 tabs atorvastatin 20 mg tablet 20 mg PO QPM #90 tabs 12/09/22 magnesium oxide 400 mg PO DAILY 90 days #90 caps 12/09/22 amlodipine 5 mg tablet 5 mg PO QAM #90 tabs 05/02/23 metoprolol succinate 50 mg 50 mg PO BID #180 tabs 05/02/23 tablet,extended release 24 hr (Toprol XL) Results & Data (ED) Vital Signs Vital Signs - 24 hr 08/06/23 15:34 08/06/23 16:09 08/06/23 16:09 Temperature 36.9 C Temperature Source Temporal Artery Scan Pulse Rate 81 Pulse Rate from SpO2 Sensor Respiratory Rate 18 Respiratory Effort / Characteristics Non-Labored Respiratory Depth Normal Blood Pressure 187/92 H Blood Pressure Mean 123 Pulse Oximetry 96 96 96 Oxygen Delivery Method Room Air Room Air Room Air Sepsis Recent Fever Within 48 Hours No Sepsis New/Unexplained Change in Mental Status No Sepsis Action Taken by Nursing No Action Required 08/06/23 16:16 08/06/23 16:20 08/06/23 16:29 Temperature Temperature Source Pulse Rate 75 69 76 Pulse Rate from SpO2 Sensor 75 71 Respiratory Rate 19 21 Respiratory Effort / Characteristics Respiratory Depth Blood Pressure Blood Pressure Mean Pulse Oximetry 97 96 Oxygen Delivery Method Sepsis Recent Fever Within 48 Hours Sepsis New/Unexplained Change in Mental Status Sepsis Action Taken by Nursing 08/06/23 16:30 08/06/23 16:30 08/06/23 16:40 Temperature Temperature Source Pulse Rate 74 71 Pulse Rate from SpO2 Sensor 71 Respiratory Rate 22 17 Respiratory Effort / Characteristics Respiratory Depth Blood Pressure 182/83 H Blood Pressure Mean 102 Pulse Oximetry 97 Oxygen Delivery Method Sepsis Recent Fever Within 48 Hours Sepsis New/Unexplained Change in Mental Status Sepsis Action Taken by Nursing 08/06/23 16:50 08/06/23 17:00 08/06/23 17:00 Temperature Temperature Source Pulse Rate 71 63 Pulse Rate from SpO2 Sensor 70 65 Respiratory Rate 16 20 Respiratory Effort / Characteristics Respiratory Depth Blood Pressure 151/77 H Blood Pressure Mean 101 Pulse Oximetry 96 96 Oxygen Delivery Method Sepsis Recent Fever Within 48 Hours Sepsis New/Unexplained Change in Mental Status Sepsis Action Taken by Nursing 08/06/23 17:10 08/06/23 17:20 08/06/23 17:30 Temperature Temperature Source Pulse Rate 67 65 Pulse Rate from SpO2 Sensor 67 65 Respiratory Rate 19 19 Respiratory Effort / Characteristics Respiratory Depth Blood Pressure 148/78 H Blood Pressure Mean 106 Pulse Oximetry 97 95 Oxygen Delivery Method Sepsis Recent Fever Within 48 Hours Sepsis New/Unexplained Change in Mental Status Sepsis Action Taken by Nursing 08/06/23 17:30 08/06/23 17:40 08/06/23 17:50 Temperature Temperature Source Pulse Rate 75 65 61 Pulse Rate from SpO2 Sensor 75 Respiratory Rate 15 14 13 Respiratory Effort / Characteristics Respiratory Depth Blood Pressure Blood Pressure Mean Pulse Oximetry 96 Oxygen Delivery Method Room Air Sepsis Recent Fever Within 48 Hours Sepsis New/Unexplained Change in Mental Status Sepsis Action Taken by Nursing 08/06/23 18:00 08/06/23 18:00 08/06/23 18:10 Temperature Temperature Source Pulse Rate 61 67 Pulse Rate from SpO2 Sensor 60 68 Respiratory Rate 19 Respiratory Effort / Characteristics Respiratory Depth Blood Pressure 150/75 H Blood Pressure Mean 108 Pulse Oximetry 95 96 Oxygen Delivery Method Sepsis Recent Fever Within 48 Hours Sepsis New/Unexplained Change in Mental Status Sepsis Action Taken by Nursing 08/06/23 18:20 08/06/23 18:30 08/06/23 18:30 Temperature Temperature Source Pulse Rate 63 62 Pulse Rate from SpO2 Sensor 64 64 Respiratory Rate 16 24 Respiratory Effort / Characteristics Respiratory Depth Blood Pressure 136/80 Blood Pressure Mean 104 Pulse Oximetry 96 96 Oxygen Delivery Method Sepsis Recent Fever Within 48 Hours Sepsis New/Unexplained Change in Mental Status Sepsis Action Taken by Nursing 08/06/23 18:40 08/06/23 18:50 08/06/23 19:00 Temperature Temperature Source Pulse Rate 75 67 70 Pulse Rate from SpO2 Sensor 73 67 69 Respiratory Rate 20 16 24 Respiratory Effort / Characteristics Respiratory Depth Blood Pressure Blood Pressure Mean Pulse Oximetry 95 96 96 Oxygen Delivery Method Sepsis Recent Fever Within 48 Hours Sepsis New/Unexplained Change in Mental Status Sepsis Action Taken by Nursing 08/06/23 19:00 08/06/23 19:10 08/06/23 19:20 Temperature Temperature Source Pulse Rate 70 55 L Pulse Rate from SpO2 Sensor 70 56 L Respiratory Rate 16 22 Respiratory Effort / Characteristics Respiratory Depth Blood Pressure 140/70 Blood Pressure Mean 99 Pulse Oximetry 96 97 Oxygen Delivery Method Sepsis Recent Fever Within 48 Hours Sepsis New/Unexplained Change in Mental Status Sepsis Action Taken by Nursing 08/06/23 19:30 08/06/23 19:30 Temperature Temperature Source Pulse Rate 58 L Pulse Rate from SpO2 Sensor 58 L Respiratory Rate 21 Respiratory Effort / Characteristics Respiratory Depth Blood Pressure 149/93 H Blood Pressure Mean 109 Pulse Oximetry 96 Oxygen Delivery Method Sepsis Recent Fever Within 48 Hours Sepsis New/Unexplained Change in Mental Status Sepsis Action Taken by [facility] Medications Current Medication List: was personally reviewed by me Laboratory Data Attestation: I reviewed the patient's lab results. 08/06/23 15:38 08/06/23 15:38 Lab Results 08/06/23 08/06/23 08/06/23 Range/Units 15:38 16:33 17:40 WBC 8.89 (4.8-10.8) K/ul RBC 5.50 H (4.20-5.40) M/uL Hgb 14.7 (12.0-16.0) g/dl Hct 46.7 (37.0-47.0) % MCV 84.9 (80.0-100.0) fL MCH 26.7 (25.0-34.0) pg MCHC 31.5 L (32.0-36.0) g/dL RDW Std Deviation 38.4 (36.4-46.3) fL RDW Coeff of Sallie 12.4 (11.5-14.5) % Plt Count 244 (130-400) K/uL MPV 9.9 (9.4-12.4) fL Immature Gran % (Auto) 0.1 % Neut % (Auto) 60.6 % Lymph % (Auto) 29.8 % Atkinson % (Auto) 6.2 % Eos % (Auto) 2.4 % Baso % (Auto) 0.9 % Neut # (Auto) 5.39 (1.40-6.50) K/uL Lymph # (Auto) 2.65 (1.20-3.40) K/uL Atkinson # (Auto) 0.55 (0.11-0.59) K/uL Eos # (Auto) 0.21 (0.00-0.50) K/uL Baso # (Auto) 0.08 (0.00-0.20) K/uL Immature Gran # (Auto) 0.01 (0.01-0.20) K/uL PT Cancelled 10.3 INR Cancelled 0.9 APTT Cancelled 22 PTT Ratio Cancelled 0.8 D-Dimer 430 (0-500) ug/L FEU Sodium 140 (136-145) mmol/L Potassium 3.7 (3.5-5.1) mmol/L Chloride 103 (98-107) mmol/L Carbon Dioxide 30 (21-32) mmol/L Anion Gap 7 (3-11) BUN 11 (6-23) mg/dl Creatinine 0.60 (0.6-1.2) mg/dl Est Cr Clr Drug Dosing 79.5 ml/min Est GFR ( Amer) 100.5 ml/min Est GFR (Non-Af Amer) 86.7 ml/min BUN/Creatinine Ratio 18.3 (10-20) Glucose 151 H (70-99(Fasting)) mg/dl Calcium 9.6 (8.6-10.3) mg/dl Magnesium 1.5 L Cancelled (1.7-2.4) mg/dl Total Bilirubin 0.8 (0.2-1.0) mg/dl AST 16 (13-39) U/L ALT 9 (7-52) U/L Alkaline Phosphatase 109 H (34-104) U/L Troponin I High Sens 2.9 2.9 (0-14) pg/ml Total Protein 7.7 (6.0-8.3) gm/dl Albumin 4.6 (3.4-5.0) gm/dl Globulin 3.1 (2.5-4.0) gm/dl Albumin/Globulin Ratio 1.5 (0.9-2) Lipase 29 (11-82) U/L Administered Medications Insulin Aspart (Insulin Aspart Per Unit Charge) 0 units SC ACHS CRISTIANA Stop: 09/05/23 20:59 Last Admin: 08/06/23 20:21 Dose: Not Given Documented By: BCN Discontinued Medications Aspirin (Aspirin Chew 324 Mg) 324 mg PO NOW STA Stop: 08/06/23 15:56 Last Admin: 08/06/23 16:03 Dose: 324 mg Documented By: HS Famotidine (Famotidine 20 Mg Tab) 20 mg PO NOW ONE Stop: 08/06/23 19:55 Last Admin: 08/06/23 20:17 Dose: 20 mg Documented By: CAESAR Ketorolac Tromethamine (Ketorolac Tromethamine 15 Mg/Ml Vial) 10 mg IV NOW ONE Stop: 08/06/23 17:37 Last Admin: 08/06/23 17:57 Dose: 10 mg Documented By: LEANDRO Imaging Data Attestation: I personally reviewed and interpreted this imaging study as follows: My Impression: 1 view chest x-ray was obtained in the emergency department. My interpretation is no free air or definite future, final report below. Radiologist's Impression: Chest X-Ray 08/06/23 15:36 SINGLE VIEW CHEST CLINICAL HISTORY: Atypical chest pain FINDINGS: A PA chest radiograph is compared to chest x-ray and chest CT dated 07/29/2022. The heart is top normal for projection noting atherosclerotic calcification of the thoracic aorta. Chronic interstitial thickening is similar to previous. The lungs and pleural spaces are clear. No pneumothorax is seen. The skeletal structures are osteopenic. There are chronic/healed right-sided rib fractures. IMPRESSION: No active disease in the chest. ACT 112: Negative or not required by law. Electronically signed by: Kevin Cano M.D. 08/06/2023 4:08 PM Discharge Plan Visit Data Chief Complaint: Chest Pain Stated Complaint: CHEST PAIN, PRESSURE ED Provider: Dileep Biggs Discharge Problem: Chest pain, Abnormal EKG Patient Disposition: Admitted As Inpatient Discharge Instructions Interventions: ED Discharge Assessment Last Done: 08/06/23 21:16 Discharge Problem: Chest pain Qualifiers: Chest pain type: unspecified Qualified Code(s): R07.9 - Chest pain, unspecified
[2023-08-06 17:18] LABS: D Dimer 430 ug/L FEU (0-500); INR 0.9 (0.9-1.1); Partial Thromboplastin Ratio 0.8; Partial Thromboplastin Time 22 Seconds (21-31); Prothrombin Time 10.3 Seconds (9.0-12.0)
[2023-08-06] MEDS: KETOROLAC TROMETHAMINE 15 MG/ML VIAL IV ONE (17:57)
--- NOTE | 2023-08-06 19:33 | History & Physical Report ---
Date of Service August 06, 2023 Assessment & Plan (1) Chest discomfort: Plan: -Admit to med/tele -Currently stable and non-toxic appearing -Presented to the ED due to 2.5 hours of left sided chest pressure with intermittent sharp pain in the left chest, at times with inspiration -Patient's symptoms did not change after 2 baby aspirin and 200 mg Ibuprofen at home, symptoms improved after receiving 15 mg IV toradol in the ED -Symptoms are currently resolved at the time of the exam -Patient had 2 negative high sen trop since arrival, ECG with very minor ST segment depressions in the inferior/lateral leads -Unsure of her exact etiology at this time, lower suspicion for ACS at this time with 2 negative high sen trop after 2.5 hours of symptoms at home -While she described possible pleuritic chest pain, she has been hemodynamically stable, stable on RA, and had a negative d-dimer, low suspicion for PE at this time -Low suspicion for aortic dissection, she was hypertensive with systolic BP in the 180's on arrival, her BP is currently stable without antihypertensives, she is without mediastinal widening on CXR -Can't rule out possible GI sources with her hx of Gonzalez's esophagus, could also be due to musculoskeletal pain or her HTN on arrival -Will give a dose of famotidine on admission and will continue her PPI -Will continue to monitor on tele and will obtain TTE tomorrow -PRN tyelnol for pain -SQ lovenox for DVT PPX -HH/DMII diet -AM CBC, BMP, mag, PT/INR, high sen trop (2) Hypothyroidism: Plan: -Continue levothyroxine (3) Type 2 diabetes mellitus with obesity: Plan: -Monitor BSG ACHS, goal is 110-160 -Hold metformin -Will start CF of 50 ACHS for now as she is insulin naive -Adjust regimen as needed (4) HLD (hyperlipidemia): Plan: -Continue atorvastatin (5) TESHA (obstructive sleep apnea): Plan: -HS CPAP ordered (6) HTN (hypertension): Plan: -Currently stable -Continue amlodipine, lisinopril, metoprolol, and spironolactone (7) Barretts esophagus: Plan: -Will give 20 mg PO famotidine on admission -Continue daily PPI Plan The patient was discussed with Dr. Parikh at the time of the admission History of Present Illness Chief Complaint: Chest pain Primary Care Provider: Lorna Shelley MD Samantha is a 78 year old female with a PMH significant for HTN, DMII, hypothyroidism, TESHA, and ascending aortic dilatation who presented to the [facility] ED on 08/06/23 with a chief complaint of chest pain. On arrival to the ED she was initially noted to be hypertensive at 187/92 but was otherwise stable. Labs including CBC, CMP, and 2 high sensitivity troponins were unremarkable. CXR was read as negative for acute findings. ECG today shows minor ST segment depressions in the inferior/lateral leads compared to previous. Prior to admission the patient was given 324 mg Aspirin and 10 mg IV Toradol. At the time of the exam the patient was sitting in bed in no acute distress. She was in her normal state of health until she developed significant chest pressure around 10 am this morning. She tells me that she feels as though there was a person sitting on her chest. The pressure was located on the left chest and did not radiate to the neck, jaw, extremities, or back. When the discomfort started she was sitting at her kitchen table working on paperwork, she denies feeling anxious or stressed when her symptoms start. She initially took 2 baby aspirin when the symptoms started, this did not change her symptoms. She then took 200 mg PO Ibuprofen which did not changes her symptoms either. She decided to call EMS when her symptoms persisted for 2.5 hours. She notes that she has also experienced intermittent episodes of sharp/stabbing pain in the left chest, especially with inspiration. States her symptoms improved after receiving the IV toradol in the ED. She is current chest discomfort free while sitting in bed. Denies a previous hx of Cardiac disease personally, denies recent long travel or damage to the lower extremities. She does have a hx of Cardiac disease on both sides of her family, but denies any deaths prior to the age of 49 from cardiac disease. Denies recent fever, chills, cough, hemoptysis, nausea, vomiting, diarrhea, dysuria, hematuria, melena, LE Swelling, and recent trauma. She is a full code and would want both of her children to make decisions together if she could not make medical decisions herself. Please refer to Dr. Parikh's attestation for any changes to the treatment plan Allergies Allergy/AdvReac Type Severity Reaction Status Date / Time morphine Allergy Severe Difficulty Verified 08/06/23 19:18 Breathing cortisone Allergy Intermediate HEART Verified 08/06/23 19:18 PALPITATIONS & RASH Sulfa (Sulfonamide Allergy Intermediate nausea and Verified 08/06/23 19:18 Antibiotics) dyspnea Corticosteroids Allergy Unknown Unknown Verified 08/06/23 19:18 (Glucocorticoids) Home Medications Medication Instructions Recorded Confirmed Type levothyroxine 125 mcg tablet 125 mcg PO DAILYBB 02/12/20 08/06/23 History cholecalciferol (vitamin D3) 25 1,000 unit PO QAM 08/26/21 08/06/23 History mcg (1,000 unit) tablet spironolactone 25 mg tablet 12.5 mg PO QAM 08/26/21 08/06/23 History mirabegron 25 mg tablet,extended 25 mg PO QAM 08/31/22 08/06/23 History release 24 hr (Myrbetriq) lisinopril 40 mg tablet 40 mg PO QAM #90 tabs 11/22/22 08/06/23 Rx metformin 1,000 mg tablet 500 mg (1/2 x 1,000 mg) PO BID 90 11/25/22 08/06/23 Rx days #90 tabs atorvastatin 20 mg tablet 20 mg PO QPM #90 tabs 12/09/22 08/06/23 Rx magnesium oxide 400 mg PO DAILY 90 days #90 caps 12/09/22 08/06/23 Rx mecobalamin (vitamin B12) 2,500 2,500 mcg PO DAILY 12/09/22 08/06/23 History mcg chewable tablet omega-3 fatty acids 500 mg capsule 500 mg PO DAILY 12/09/22 08/06/23 History omeprazole 20 mg capsule,delayed 20 mg PO DAILY 01/08/23 08/06/23 History release amlodipine 5 mg tablet 5 mg PO QAM #90 tabs 05/02/23 08/06/23 Rx metoprolol succinate 50 mg 50 mg PO BID #180 tabs 05/02/23 08/06/23 Rx tablet,extended release 24 hr (Toprol XL) Past Med/Surg History Medical History (Updated 08/07/23 @ 10:55 by Stefanie Sanchez MD) Barretts esophagus pt unaware - but noted in medical record. hx of egd. Poor historian Nausea and vomiting after administration of anesthetic agent with syncope (at [facility]) and was taken by ambulance and woke up in intensive care. no other information given. "maybe 3 or 4 years ago" - No issues with GA for thyroidectomy/parathyroidectomy 11/03/18 at [facility] Sepsis (~07/2022) Treated in [facility] as an inpatient (07/29/22-08/05/22). Doing well currently. Ovarian cancer hx - unsure of date History of uterine cancer ~40 years ago Renal angiomyolipoma Senile osteoporosis HLD (hyperlipidemia) TESHA (obstructive sleep apnea) "my machine broke down on me" - not currently using Hx of papillary thyroid carcinoma S/p thyroidectomy Hyperparathyroidism S/p parathyroidectomy HTN (hypertension) Surgical History H/O bilateral oophorectomy H/O nephrolithotomy with removal of calculi Right Hx of colonoscopy 2021 History of esophagogastroduodenoscopy (EGD) 2020 barretts, gastric polyps, gastritis, repeat 3 years History of cholecystectomy History of appendectomy History of ureter stent 2019 History of sinus surgery History of hysterectomy 1980s History of thyroidectomy total 2019 History of parathyroidectomy Family History Brother Myocardial infarction Diabetes Coronary heart disease Heart disease Hypertension Kidney disease Father Diabetes Stroke Hypertension Aunt Breast cancer Mother Schizophrenia Sister Kidney disease Social History Smoking Status: Never smoker Tobacco Type: Cigarettes Second Hand Exposure: No; Do You Dip or Chew Tobacco: Yes (hx); Hx Alcohol Use: No Hx Substance Use: No Preferred Language: Amharic Communication Ability: Effective Visual Impairment: No Limitations Exec. Creative Director Required: No Beliefs That Will Affect Care: None marital status: Current Living Situation: Alone current occupational status: employed current occupation: [employer] Feels Safe at Home: Yes during the past year weight has: remained stable Seatbelt Use: always Assistive Devices: Cane, Glasses and Walker Physical Exam Physical Exam: Physical Exam: General: In no acute distress, stated age, well-nourished, good hygiene HEENT: Normocephalic, atraumatic, no scleral icterus, pupils around round, symmetrical, and reactive to light, moist mucus membranes, trachea midline, no thyromegaly Chest/Pulm: No respiratory distress, symmetrical chest expansion, clear breath sounds throughout Cardiac: RRR, no murmurs noted Abdomen: Negative for ascites and bruising, normoactive bowel sounds, soft, non-tender to palpation throughout Musculoskeletal: Symmetrical and without signs of acute trauma, upper and lower extremities with full ROM, no atrophy, spasticity, or flaccidity Extremities: Radial, dorsalis pedis, and posterior tibial pulses are intact and symmetrical, no edema noted in the BL LE's Skin: Warm, dry, no rashes , lesions, or scars noted Neuro: Alert and oriented to person, place, month, year, and president, no focal defects, no tremors noted Psych: No acute distress, calm and cooperative during the exam Results & Data Results & Data Vital Signs (Past 12 Hours) Vital Signs Temp Pulse Resp BP Pulse Ox O2 Del Method 08/06/23 18:50 67 16 96 08/06/23 18:40 75 20 95 08/06/23 18:30 136/80 08/06/23 18:30 62 24 96 08/06/23 18:20 63 16 96 08/06/23 18:10 67 19 96 08/06/23 18:00 150/75 H 08/06/23 18:00 61 95 08/06/23 17:50 61 13 08/06/23 17:40 65 14 08/06/23 17:30 75 15 96 Room Air 08/06/23 17:30 148/78 H 08/06/23 17:20 65 19 95 08/06/23 17:10 67 19 97 08/06/23 17:00 63 20 96 08/06/23 17:00 151/77 H 08/06/23 16:50 71 16 96 08/06/23 16:40 71 17 97 08/06/23 16:30 74 22 08/06/23 16:30 182/83 H 08/06/23 16:29 76 08/06/23 16:20 69 21 96 08/06/23 16:16 75 19 97 08/06/23 16:09 96 Room Air 08/06/23 16:09 96 Room Air 08/06/23 15:34 36.9 C 81 18 187/92 H 96 Room Air Laboratory Results Abnormal lab results 08/06/23 Range/Units 15:38 RBC 5.50 H (4.20-5.40) M/uL MCHC 31.5 L (32.0-36.0) g/dL Glucose 151 H (70-99(Fasting)) mg/dl Magnesium 1.5 L (1.7-2.4) mg/dl Alkaline Phosphatase 109 H (34-104) U/L Diagnostic Findings Chest X-Ray 08/06/23 15:36 SINGLE VIEW CHEST CLINICAL HISTORY: Atypical chest pain FINDINGS: A PA chest radiograph is compared to chest x-ray and chest CT dated 07/29/2022. The heart is top normal for projection noting atherosclerotic calcification of the thoracic aorta. Chronic interstitial thickening is similar to previous. The lungs and pleural spaces are clear. No pneumothorax is seen. The skeletal structures are osteopenic. There are chronic/healed right-sided rib fractures. IMPRESSION: No active disease in the chest. ACT 112: Negative or not required by law. Electronically signed by: Kevin Cano M.D. 08/06/2023 4:08 PM ECG Additional Comments: Normal sinus rhythm Nonspecific ST and T wave abnormality Abnormal ECG When c ompared with ECG of 01-SEP-2022 05:55, Criteria for Inferior infarct are no longer Present Nonspecific T wave abnormality now evident in Lateral leads Code Status & VTE Plan Code Status Full code VTE Prophylaxis Plan VTE Prophylaxis will be ordered: Yes Supervising Physician Co-Signing Physician Notes Attending addendum: I have physically seen this patient, have supervised the DANIEL's activities, and agree with the H&P unless as otherwise noted. Assessment and Plan: Chest discomfort/hypertension- Admit to monitored bed Symptoms appear to improve after receiving Toradol 15 mg IV in ED 2 negative troponins so far, 2.9-2.9 Order complete echocardiogram Continue amlodipine, lisinopril, metoprolol and spironolactone with hold parameters Acetaminophen 650 mg by mouth every 6 hours as needed for mild pain or fever Follow serial laboratories otherwise GERD/Gonzalez's esophagus- Potential cause of above symptoms, may need more aggressive intervention/evaluation if cardiac workup negative Diabetes mellitus- Hold metformin Placed on Accu-Cheks with NovoLog SSI TESHA- Continue CPAP PG Care Time/CCT Total # of Minutes Spent Total Time Spent with Patient: Total time spent is greater than 50% in coordination of care (as documented) at patient's floor/unit and/or counseling patient: Coding [place] [address] INT INP/OBS CARE 375MIN Patient Type Established Medical Decision Making High Complexity Diagnoses Chest discomfort R07.89 Acquired hypothyroidism E03.9 Hypothyroidism type: acquired Type 2 diabetes mellitus with obesity E11.69; E66.9 HLD (hyperlipidemia) E78.5 TESHA (obstructive sleep apnea) G47.33 HTN (hypertension) I10 Barretts esophagus K22.70 (2) Hypothyroidism Hypothyroidism type: acquired Qualified Code(s): E03.9 - Hypothyroidism, unspecified
[2023-08-06] MEDS ORDERED: GLUCOSE 10 TAB/TUBE PO PRN (19:35)
[2023-08-06] MEDS ORDERED: DEXTROSE 50% 50 ML SYRINGE IV PRN (19:35)
[2023-08-06] MEDS ORDERED: GLUCOSE 40% GEL 15 GM TUBE PO PRN (19:35)
[2023-08-06] MEDS ORDERED: CARBOHYDRATES FOR HYPOGLYCEMIA PO PRN (19:35)
[2023-08-06] MEDS ORDERED: GLUCAGON FOR INJ 1 MG VIAL SQ PRN (19:35)
[2023-08-06 19:51] LABS: Magnesium 1.5 mg/dl (1.7-2.4)
[2023-08-06] MEDS ORDERED: ACETAMINOPHEN 325 MG TAB PO PRN (19:54)
[2023-08-06] MEDS: FAMOTIDINE 20 MG TAB PO ONE (20:17)
[2023-08-06] MEDS: INSULIN ASPART PER UNIT CHARGE SC SCH (20:21)
[2023-08-06] MEDS: ATORVASTATIN 20 MG TAB PO SCH (22:34)
[2023-08-06] MEDS: ENOXAPARIN INJ 40 MG/0.4 ML SYR SQ SCH (22:35)
[2023-08-06] MEDS: METOPROLOL SUCC 50MG EXT REL TAB PO SCH (22:35)
[2023-08-06] MEDS: MAGNESIUM SULFATE / D5W 1 GM/100 ML BAG IV SCH (22:37)
[2023-08-07 05:05] LABS: BUN Creatinine Ratio 22.2 (10-20); Calcium 8.9 mg/dl (8.6-10.3); Creatinine Clr Calc Pharmacy 105.7 ml/min; Est GFR (African American) 110.5 ml/min; Est GFR (Non-African American) 95.3 ml/min; Magnesium 1.9 mg/dl (1.7-2.4); Potassium 3.3 mmol/L (3.5-5.1)
[2023-08-07 05:12] LABS: Troponin I High Sensitivity 2.3 pg/ml (0-14)
[2023-08-07 05:15] LABS: Basophils # (auto) 0.08 K/uL (0.00-0.20); Eosinophils % (auto) 2.6 %; Hematocrit (blood only) 40.8 % (37.0-47.0); Hemoglobin 13.1 g/dl (12.0-16.0); Immature Granulocytes # (auto) 0.02 K/uL (0.01-0.20); Immature Granulocytes % (auto) 0.3 %; Lymphocytes % (auto) 25.9 %; Mean Corpuscular Hemoglobin 27.2 pg (25.0-34.0); Mean Corpuscular Hgb Conc 32.1 g/dL (32.0-36.0); Mean Corpuscular Volume 84.6 fL (80.0-100.0); Mean Platelet Volume 10.5 fL (9.4-12.4); Monocytes # (auto) 0.55 K/uL (0.11-0.59); Monocytes % (auto) 7.1 %; Neutrophils # (auto) 4.87 K/uL (1.40-6.50); Neutrophils % (auto) 63.1 %; Platelet Count 204 K/uL (130-400); RDW Coefficient of Variation 12.3 % (11.5-14.5); RDW Standard Deviation 37.2 fL (36.4-46.3); Red Blood Count 4.82 M/uL (4.20-5.40); White Blood Count 7.72 K/ul (4.8-10.8)
[2023-08-07] MEDS: LEVOTHYROXINE SODIUM 125 MCG TABLET PO SCH (06:07)
[2023-08-07] MEDS: lisinopril 40 MG TAB PO SCH (08:38)
[2023-08-07] MEDS: MAGNESIUM OXIDE 400 MG TAB PO SCH (08:38)
[2023-08-07] MEDS: amLODIPine BESYLATE 5 MG TAB PO SCH (08:38)
[2023-08-07] MEDS: PANTOprazole 40 MG TAB PO SCH (08:39)
[2023-08-07] MEDS: SPIRONOLACTONE 12.5 MG TAB PO SCH (08:39)
[2023-08-07] MEDS: VIBEGRON 75 MG TAB PO SCH (08:44)
[2023-08-07] MEDS: POTASSIUM CHLORIDE CRTAB 20 MEQ TABCR PO STA (10:23)
--- NOTE | 2023-08-07 10:57 | Hospitalist Progress Note ---
Date of Service August 07, 2023 Assessment & Plan (1) Chest discomfort: Plan: -Now resolved, was most likely musculoskeletal -EKG did not show any ST changes, troponins have been normal -Chest x-ray did not show any acute pathology. (2) Bloating symptom: Plan: Patient complains of sinus bloating and loose bowel movements for the past 2 weeks Occasionally has gas pains and this could have been what she thought was chest discomfort Will obtain CT scan of the abdomen pelvis with oral contrast (3) Hypothyroidism: Plan: -Continue levothyroxine (4) Type 2 diabetes mellitus with obesity: Plan: -Monitor BSG ACHS, goal is 110-160 -Hold metformin -Will start CF of 50 ACHS for now as she is insulin naive -Adjust regimen as needed (5) HLD (hyperlipidemia): Plan: -Continue atorvastatin (6) TESHA (obstructive sleep apnea): Plan: -HS CPAP ordered (7) HTN (hypertension): Plan: -Currently stable -Continue amlodipine, lisinopril, metoprolol, and spironolactone (8) Barretts esophagus: Plan: -Will give 20 mg PO famotidine on admission -Continue daily PPI Plan If CT abdomen is normal, discharge patient home Admission and Anticipated Discharge Date Admission Date: August 06, 2023 Subjective Patient seen and examined, said the chest pain has resolved chest pressure resolved however she said that over the past couple of weeks she has been having loose bowel movements and some bloating. Review of Systems Review of Systems: All systems reviewed are negative, apart from the ones contained in the history. Physical Exam Physical Exam: The patient is awake, alert and oriented 3, well developed and well nourished, normocephalic and atraumatic, lying in bed and in no acute distress. HEENT--PERRL, EOMI, mucous membranes and oropharynx mildly dry Neck--supple. No JVD. No bruits. Thyroid normal, trachea midline, no adenopat hy. Heart--normal S1 and S2. No murmurs, rubs or gallops. Lungs--clear bilaterally, no respiratory distress, no accessory muscle use. Abdomen--normal bowel sounds and soft. Extremities--no cyanosis or clubbing. No edema. Dermatologic--normal skin turgor, normal color, no abnormal lymph nodes, no rash. Neurologic--cranial nerves II through XII grossly intact. Rheumatologic--normal range of motion. Psychiatric--normal affect. Results & Data Results & Data Vital Signs (Past 12 Hours) Vital Signs Temp Pulse Pulse Resp BP Pulse Ox O2 Del Method 08/07/23 07:29 98.1 F 64 18 122/78 95 Room Air 08/07/23 07:19 71 08/07/23 03:15 97.7 F 60 18 135/77 94 Room Air 08/06/23 22:59 63 PG Care Time/CCT Total # of Minutes Spent Total Time Spent with Patient: Total time spent is greater than 50% in coordination of care (as documented) at patient's floor/unit and/or counseling patient: Coding Level of Care Code 63030 SUB INP/OBS CARE 2/35MIN Diagnoses Chest discomfort R07.89 Bloating symptom R14.0 Acquired hypothyroidism E03.9 Hypothyroidism type: acquired Type 2 diabetes mellitus with obesity E11.69; E66.9 HLD (hyperlipidemia) E78.5 TESHA (obstructive sleep apnea) G47.33 HTN (hypertension) I10 Barretts esophagus K22.70 Time Spent (min) 35 (3) Hypothyroidism Hypothyroidism type: acquired Qualified Code(s): E03.9 - Hypothyroidism, unspecified
--- NOTE | 2023-08-07 13:49 | CT Scan Report ---
CT abd pelvis oral con only CLINICAL HISTORY: Abdominal pain and bloating. COMPARISON STUDY: CT of the abdomen and pelvis December 30, 2022. TECHNIQUE: Axial images of the abdomen and pelvis were obtained without IV contrast. Oral contrast wa s administered. Automated exposure control was utilized for the study. A dose lowering technique was utilized adhering to the principles of ALARA. FINDINGS: Multiple small nodules within the lower lungs are unchanged since chest CT February 12, 2020 . These are benign given stability. There is a punctate right renal calculus. There are no ureteral c alculi. There is no hydronephrosis. 1.3 cm hyperdense lesion arising from the lower pole of the right kidney is suboptimally assessed on this unenhanced exam. This is unchanged since prior exam. This ma y reflect a hyperdense cyst. Lateral segment hepatic cyst is present. Spleen, adrenal glands and panc reas are unremarkable on unenhanced exam. There is no evidence for a bowel obstruction. A small oment al nodule remains unchanged. The appendix is not visualized. There is no right lower quadrant inflamm ation. There is no lymphadenopathy. No fluid collections are present. Old right pubic rami fractures are present. Concavity of the superior endplate of L2 is unchanged and CT of December 30, 2022. Mode rate loss of height of the superior endplate of L3 gas developed since prior exam. However, this is p robably chronic. IMPRESSION: 1. Punctate right renal calculus. No ureteral calculi or hydronephrosis. 2. No bowel obstruction. No bowel wall thickening on unenhanced exam. 3. L3 compression fracture. Although new since CT of July 30, 2022, this is probably chronic. ACT 112: Negative or not required by law. Electronically signed by: Abundio Olivo M.D. 08/07/2023 1:47 PM
--- NOTE | 2023-08-07 15:30 | Discharge Summary ---
Date of Service August 07, 2023 Admission HPI Per Admitting Provider Samantha is a 78 year old female with a PMH significant for HTN, DMII, hypothyroidism, TESHA, and ascending aortic dilatation who presented to the [facility] ED on 08/06/23 with a chief complaint of chest pain. On arrival to the ED she was initially noted to be hypertensive at 187/92 but was otherwise stable. Labs including CBC, CMP, and 2 high sensitivity troponins were unremarkable. CXR was read as negative for acute findings. ECG today shows minor ST segment depressions in the inferior/lateral leads compared to previous. Prior to admission the patient was given 324 mg Aspirin and 10 mg IV Toradol. At the time of the exam the patient was sitting in bed in no acute distress. She was in her normal state of health until she developed significant chest pressure around 10 am this morning. She tells me that she feels as though there was a person sitting on her chest. The pressure was located on the left chest and did not radiate to the neck, jaw, extremities, or back. When the discomfort started she was sitting at her kitchen table working on paperwork, she denies feeling anxious or stressed when her symptoms start. She initially took 2 baby aspirin when the symptoms started, this did not change her symptoms. She then took 200 mg PO Ibuprofen which did not changes her symptoms either. She decided to call EMS when her symptoms persisted for 2.5 hours. She notes that she has also experienced intermittent episodes of sharp/stabbing pain in the left chest, especially with inspiration. States her symptoms improved after receiving the IV toradol in the ED. She is current chest discomfort free while sitting in bed. Denies a previous hx of Cardiac disease personally, denies recent long travel or damage to the lower extremities. She does have a hx of Cardiac disease on both sides of her family, but denies any deaths prior to the age of 50 from cardiac disease. Denies recent fever, chills, cough, hemoptysis, nausea, vomiting, diarrhea, dysuria, hematuria, melena, LE Swelling, and recent trauma. She is a full code and would want both of her children to make decisions together if she could not make medical decisions herself. Principal Diagnosis chest pain Discharge Exam The patient is awake, alert and oriented 3, well developed and well nourished, normocephalic and atraumatic, lying in bed and in no acute distress. HEENT--PERRL, EOMI, mucous membranes and oropharynx mildly dry Neck--supple. No JVD. No bruits. Thyroid normal, trachea midline, no adenopathy. Heart--normal S1 and S2. No murmurs, rubs or gallops. Lungs--clear bilaterally, no respiratory distress, no accessory muscle use. Abdomen--normal bowel sounds and soft. Extremities--no cyanosis or clubbing. No edema. Dermatologic--normal skin turgor, normal color, no abnormal lymph nodes, no rash. Neurologic--cranial nerves II through XII grossly intact. Rheumatologic--normal range of motion. Psychiatric--normal affect. Discharge Data Allergies Allergy/AdvReac Type Severity Reaction Status Date / Time morphine Allergy Severe Difficulty Verified 08/06/23 19:18 Breathing cortisone Allergy Intermediate HEART Verified 08/06/23 19:18 PALPITATIONS & RASH Sulfa (Sulfonamide Allergy Intermediate nausea and Verified 08/06/23 19:18 Antibiotics) dyspnea Corticosteroids Allergy Unknown Unknown Verified 08/06/23 19:18 (Glucocorticoids) Consultations 08/06/23 19:28 ED Decision to Admit Stat 08/06/23 19:38 ED Decision to Admit Stat Ordered Studies 08/07/23 08:57 CT abd pelvis oral con only Routine Hospital Course (1) Chest discomfort: -Now resolved, was most likely musculoskeletal -EKG did not show any ST changes, troponins have been normal -Chest x-ray did not show any acute pathology. 2 D ECHO was wnl, only moderate assymetrical l ventricular hypertrophy and grade 1 diastolic dysfunction (2) Bloating symptom: Patient complains of sinus bloating and loose bowel movements for the past 2 weeks Occasionally has gas pains and this could have been what she thought was chest discomfort CT scan of the abdomen pelvis with oral contrast was wnl Follow up outpatient with GI (3) Hypothyroidism: -Continue levothyroxine (4) Type 2 diabetes mellitus with obesity: -Monitor BSG ACHS, goal is 110-160 -Hold metformin -Will start CF of 50 ACHS for now as she is insulin naive -Adjust regimen as needed (5) HLD (hyperlipidemia): -Continue atorvastatin (6) TESHA (obstructive sleep apnea): -HS CPAP ordered (7) HTN (hypertension): -Currently stable -Continue amlodipine, lisinopril, metoprolol, and spironolactone (8) Barretts esophagus: -Will give 20 mg PO famotidine on admission -Continue daily PPI Plan If CT abdomen is normal, discharge patient home Total Time Total Time Spent Total Time Spent (In Minutes): 35 Discharge Plan Discharge Items Patient Disposition: Home - Self-Care Reason For Visit: CHEST PAIN Discharge Diagnosis: chest pain Activity: Resume your previous activity Non-emergency contact: Primary Care Provider and Director Of [employer] Call non-emergency contact if: you have any medication questions Follow-up/Referrals: Lorna Shelley MD [Primary Care Provider] - Diet: Regular Addtl Attending Provider Instructions: please follow up with your regular PCP, ask for a referral to see a Gastro enterologist regarding your bloating and loose stools Pending Studies at Discharge: No Stand-Alone Forms: My [employer], Smoking Cessation Medications and DC Order Prescriptions: Continued lisinopril 40 mg tablet 40 mg PO QAM Qty: 90 3RF metformin 1,000 mg tablet 500 mg PO BID 90 Days Qty: 90 4RF Rx Instructions: 1/2 tablet dose mecobalamin (vitamin B12) 2,500 mcg tablet,chewable 2,500 mcg PO DAILY Patient Comments: Per patient report, she purchases this OTC omega-3 fatty acids 500 mg capsule 500 mg PO DAILY Patient Comments: Per patient report atorvastatin 20 mg tablet 20 mg PO QPM Qty: 90 3RF magnesium oxide 400 mg magnesium capsule 400 mg PO DAILY 90 Days Qty: 90 2RF amlodipine 5 mg tablet 5 mg PO QAM Qty: 90 3RF metoprolol succinate [Toprol XL] 50 mg tablet extended release 24 hr 50 mg PO BID Qty: 180 3RF levothyroxine 125 mcg tablet 125 mcg PO DAILYBB spironolactone 25 mg tablet 12.5 mg PO QAM cholecalciferol (vitamin D3) 25 mcg (1,000 unit) Tablet 1,000 unit PO QAM Myrbetriq 25 mg Tablet Extended Release 24 Hr 25 mg PO QAM omeprazole 20 mg capsule,delayed release(DR/EC) 20 mg PO DAILY Discharge Orders: Discharge Order (Routine); Ordered 08/07/23 Ordered By: Stefanie Sanchez Admission Data Admit Date/Time: 08/06/23 19:35 Attending Provider: Stefanie Sanchezit Provider: Maksim Parikh Primary Care Provider: Lorna Shelley Other Providers: Maksim Parikh Coding Level of Care Code 14789 INP/OBS DISCH >30 MIN Diagnoses Chest discomfort R07.89 Bloating symptom R14.0 Acquired hypothyroidism E03.9 Hypothyroidism type: acquired Type 2 diabetes mellitus with obesity E11.69; E66.9 HLD (hyperlipidemia) E78.5 TESHA (obstructive sleep apnea) G47.33 HTN (hypertension) I10 Barretts esophagus K22.70 Time Spent (min) 35
--- NOTE | 2023-08-07 15:41 | XCELERA ---
[id number] [id number]
--- NOTE | 2023-08-07 22:36 | Electrocardiogram Report ---
Test Reason : Blood Pressure : / mmHG Vent. Rate : 078 BPM Atrial Rate : 078 BPM P-R Int : 150 ms QRS Dur : 090 ms QT Int : 370 ms P-R-T Axes : 067 044 089 degrees QTc Int : 421 ms Normal sinus rhythm Nonspecific ST and T wave abnormality Abnormal ECG When compared with ECG of 01-SEP-2022 05:55, Criteria for Inferior infarct are no longer Present Nonspecific T wave abnormality now evident in Lateral leads Confirmed by Yoseph Benavides ([id number]) on 08/07/2023 10:35:45 PM Referred By: Confirmed By:Yoseph Benavides
--- NOTE | 2023-08-08 06:38 | Billing Data ---
Date of Service August 08, 2023 Coding Level of Care Code 57694 INT INP/OBS CARE
== END 2023-08-07 16:48 | disposition home or self-care (01) ==
LOC: 2W 15:31 → ED 15:31 → SUATTDRO 19:35 → 2W 21:16